=== PATIENT | female | born 1970 | race Caucasian/White ===

== ENCOUNTER 2017-01-02 12:50 | Emergency (ER) | payer MEDICAID ==
[~2017-01-02] VITALS: Ht 160 cm; Wt 77.1 kg
[2017-01-02 13:07] VITALS: BP 144/72
== END 2017-01-02 13:27 | disposition home or self-care (01) ==
LOC: EDUNIT# 12:50 → ER 12:57
DX: S29.012A Strain of muscle and tendon of back wall of thorax, initial encounter (principal); Z88.8 Allergy status to other drugs, medicaments and biological substances; Z88.2 Allergy status to sulfonamides; V49.49XA Driver injured in collision with other motor vehicles in traffic accident, initial encounter; Y93.89 Activity, other specified; Y99.8 Other external cause status; Y92.488 Other paved roadways as the place of occurrence of the external cause

== ENCOUNTER 2019-10-10 14:21 | Emergency (ER) | payer MEDICAID ==
[~2019-10-10] VITALS: Ht 160 cm; Wt 81.6 kg
[2019-10-10 14:56] VITALS: BP 137/73
== END 2019-10-10 15:27 | disposition home or self-care (01) ==
LOC: ER 14:24
DX: G89.29 Other chronic pain (principal); M25.512 Pain in left shoulder; Z76.0 Encounter for issue of repeat prescription; Z88.2 Allergy status to sulfonamides; Z88.8 Allergy status to other drugs, medicaments and biological substances

== ENCOUNTER 2022-06-28 20:49 | Emergency (ER) | payer MEDICAID ==
[~2022-06-28] VITALS: Ht 160 cm; Wt 79.5 kg
[2022-06-28 20:59] VITALS: BP 118/55
[2022-06-28 22:39] LABS: Albumin 3.2 g/dL (3.4-5.0); BUN/Creatinine Ratio 24.5; Basophils # (auto) 0 10 ^3/uL (0-0.2); Basophils % (auto) 0.4 % (0.0-2.0); Calcium 7.8 mg/dL (8.5-10.1); Eosinophils # (auto) 0 10 ^3/uL (0-0.8); Eosinophils % (auto) 0.7 % (0.0-7.0); Hematocrit 31.2 % (36.0-46.0); Hemoglobin 9.5 g/dL (12.2-16.2); Lymphocytes % (auto) 18.6 % (10.0-50.0); Magnesium 2.3 mg/dL (1.6-2.6); Mean Corpuscular Hemoglobin 27.1 pg (28.0-32.0); Mean Corpuscular Hgb Conc. 30.3 g/dL (32.0-36.0); Mean Corpuscular Volume 89.5 fL (80.0-100.0); Monocytes # (auto) 0.3 10 ^3/uL (0-1.3); Monocytes % (auto) 6.2 % (0.0-12.0); Neutrophils # (auto) 3.8 10 ^3/uL (1.6-8.6); Neutrophils % (auto) 74.1 % (37.0-80.0); Nucleated Red Blood Cells % 0.1 %; Potassium 4.1 mmol/L (3.5-5.1); Red Blood Cells 3.49 10^6/uL (4.0-5.20); White Blood Cell 5.1 10^3/uL (4.4-10.8)
[2022-06-28 22:42] LABS: Bilirubin, Total 0.6 mg/dL (0.2-1.0); Phosphorus 3.8 mg/dL (2.5-4.90); Total Protein 6.7 g/dL (6.4-8.2)
== END 2022-06-29 08:22 | disposition left against medical advice (07) ==
LOC: ER 20:49
DX: R07.89 Other chest pain (principal); Z53.29 Procedure and treatment not carried out because of patient's decision for other reasons; Z98.51 Tubal ligation status; Z88.2 Allergy status to sulfonamides
CPT/HCPCS: 36415; 71045; 80053; 83735; 83880; 84100; 84484; 85025; 93005

== ENCOUNTER 2024-04-04 17:58 | Inpatient (IN) | payer MEDICAID ==
[~2024-04-04] VITALS: Ht 160 cm; Wt 75.6 kg
[2024-04-04 19:30] LABS: Basophils # (auto) 0 10 ^3/uL (0-0.2); Eosinophils # (auto) 0 10 ^3/uL (0-0.8); Hemoglobin 9.6 g/dL (12.2-16.2); Lymphocytes # (auto) 0.9 10 ^3/uL (0.4-5.4); Nucleated Red Blood Cells % 0.3 %
[2024-04-04 19:32] LABS: Basophils % (auto) 0.9 % (0.0-2.0); Eosinophils % (auto) 1.1 % (0.0-7.0); Hematocrit 31.5 % (36.0-46.0); Lymphocytes % (auto) 24.1 % (10.0-50.0); Mean Corpuscular Hemoglobin 31.3 pg (28.0-32.0); Mean Corpuscular Hgb Conc. 30.5 g/dL (32.0-36.0); Mean Corpuscular Volume 102.8 fL (80.0-100.0); Monocytes # (auto) 0.3 10 ^3/uL (0-1.3); Monocytes % (auto) 9.4 % (0.0-12.0); Neutrophils # (auto) 2.3 10 ^3/uL (1.6-8.6); Neutrophils % (auto) 64.5 % (37.0-80.0); Red Blood Cells 3.06 10^6/uL (4.0-5.20); Red Cell Distribution Width 15.7 % (11.8-14.3); White Blood Cell 3.6 10^3/uL (4.4-10.8)
[2024-04-04 19:45] LABS: Alanine Aminotransferase 47 U/L (7-40); Albumin 3.4 g/dL (3.2-4.8); Alkaline Phosphatase 236 U/L (46-116); Anion Gap 8 (5-15); Aspartate Aminotransferase 47 U/L (13-40); BUN/Creatinine Ratio 24.5 (10.0-20.0); Bilirubin, Total 0.8 mg/dL (0.2-1.0); Blood Urea Nitrogen 13 mg/dL (9-23); Calcium 7.7 mg/dL (8.7-10.4); Carbon Dioxide 22 mmol/L (20-30); Chloride 109 mmol/L (98-107); Glucose 100 mg/dL (74-106); Magnesium 1.9 mg/dL (1.6-2.6); Phosphorus 5.9 mg/dL (2.4-5.1); Potassium 4.1 mmol/L (3.5-5.1); Sodium 139 mmol/L (136-145); Total Protein 5.9 g/dL (5.7-8.2)
[2024-04-04] MEDS: ONDANSETRON HCL 4 MG/2 ML VIAL IV ONE (20:44)
[2024-04-04] MEDS: PANTOPRAZOLE 40 MG/10 ML VIAL INJ IV ONE (20:44)
[2024-04-04] MEDS: MORPHINE SULFATE 4 MG/ML SYR/VIAL IV ONE (20:47)
[2024-04-04] MEDS: SODIUM CHLORIDE 0.9% 1,000 ML IV ONE (20:47)
[2024-04-04 20:51] LABS: Urine Bacteria FEW /hpf (None Seen); Urine Blood Negative /uL (Negative); Urine Clarity Clear (Clear); Urine Color Yellow (Yellow); Urine Protein, UAD Negative (Negative); Urine Specific Gravity 1.024 (1.001-1.035); Urine Urobilinogen Normal (Negative); Urine WBC <1 /hpf (0 - 5)
[2024-04-04] MEDS ORDERED: LACTULOSE 20Gm/30ML SOLN PO PRN (22:00)
[2024-04-04] MEDS: DOCUSATE SOD 100 MG CAP PO SCH (22:00)
[2024-04-04] MEDS ORDERED: PANTOPRAZOLE 40 MG/10 ML VIAL INJ IV ONE (22:15)
[2024-04-04] MEDS: PIPERACILLIN-TAZO 4.5GM 100 ML IV ONE (22:16)
[2024-04-04] MEDS: LACTULOSE 20Gm/30ML SOLN PO ONE (22:21)
[2024-04-04 23:15] VITALS: PULSE 76; RESP 22; O2SAT 97
[2024-04-04] MEDS: CALCIUM GLUC 1,000mg/50ml-NS 50 ML IV ONE (23:40)
[2024-04-05] MEDS: FUROSEMIDE 20 MG/2 ML VIAL IV ONE (00:05)
[2024-04-05] MEDS: SODIUM CHLORIDE 0.9% 1,000 ML IV SCH (00:05)
[2024-04-05] MEDS: SODIUM CHLORIDE 0.9% 1,000 ML IV ONE (00:38)
[2024-04-05 05:00] VITALS: BP 89/46; PULSE 63; RESP 18; TEMP 97.9; O2SAT 97
[2024-04-05] MEDS: metroNIDAZOLE 500MG/100ML 100 ML IV SCH (06:03)
[2024-04-05 06:30] LABS: Basophils # (auto) 0 10 ^3/uL (0-0.2); Eosinophils # (auto) 0 10 ^3/uL (0-0.8); Lymphocytes # (auto) 0.6 10 ^3/uL (0.4-5.4); Monocytes # (auto) 0.2 10 ^3/uL (0-1.3); Neutrophils # (auto) 1.4 10 ^3/uL (1.6-8.6); White Blood Cell 2.3 10^3/uL (4.4-10.8)
[2024-04-05 06:33] LABS: Basophils % (auto) 0.4 % (0.0-2.0); Eosinophils % (auto) 1.4 % (0.0-7.0); Hematocrit 23.5 % (36.0-46.0); Hemoglobin 7.4 g/dL (12.2-16.2); Lymphocytes % (auto) 27.6 % (10.0-50.0); Mean Corpuscular Hemoglobin 31.5 pg (28.0-32.0); Mean Corpuscular Hgb Conc. 31.6 g/dL (32.0-36.0); Mean Corpuscular Volume 99.5 fL (80.0-100.0); Monocytes % (auto) 9.8 % (0.0-12.0); Neutrophils % (auto) 60.8 % (37.0-80.0); Red Blood Cells 2.36 10^6/uL (4.0-5.20); Red Cell Distribution Width 15.2 % (11.8-14.3)
[2024-04-05 06:38] LABS: Anion Gap 3 (5-15); Carbon Dioxide 27 mmol/L (20-30); Chloride 112 mmol/L (98-107); Potassium 3.5 mmol/L (3.5-5.1); Sodium 142 mmol/L (136-145)
[2024-04-05 06:39] LABS: Calcium 7.4 mg/dL (8.5-10.1)
[2024-04-05 06:44] LABS: BUN/Creatinine Ratio 20.5 (10.0-20.0); Blood Urea Nitrogen 9 mg/dL (9-23); Glucose 91 mg/dL (74-106)
[2024-04-05] MEDS ORDERED: TIZA-142 PO (08:02)
[2024-04-05] MEDS ORDERED: ONDA-180 PO (08:02)
[2024-04-05] MEDS ORDERED: OXYC15TA PO (08:02)
[2024-04-05 08:29] VITALS: BP 100/43; PULSE 71; RESP 18; TEMP 97.8; O2SAT 95
[2024-04-05] MEDS: oxyCODONE ER 20 MG TAB PO SCH (10:57)
[2024-04-05] MEDS: PANTOPRAZOLE 40 MG/10 ML VIAL INJ IV SCH (10:57)
[2024-04-05 13:00] VITALS: BP 122/62; PULSE 82; RESP 18; TEMP 98.6; O2SAT 96
[2024-04-05 14:06] LABS: Basophils # (auto) 0 10 ^3/uL (0-0.2); Basophils % (auto) 0.6 % (0.0-2.0); Eosinophils # (auto) 0 10 ^3/uL (0-0.8); Eosinophils % (auto) 0.7 % (0.0-7.0); Hematocrit 26.8 % (36.0-46.0); Hemoglobin 8.6 g/dL (12.2-16.2); Lymphocytes # (auto) 0.5 10 ^3/uL (0.4-5.4); Lymphocytes % (auto) 21.1 % (10.0-50.0); Mean Corpuscular Hemoglobin 31.7 pg (28.0-32.0); Mean Corpuscular Hgb Conc. 31.9 g/dL (32.0-36.0); Mean Corpuscular Volume 99.2 fL (80.0-100.0); Monocytes # (auto) 0.1 10 ^3/uL (0-1.3); Monocytes % (auto) 5.9 % (0.0-12.0); Neutrophils # (auto) 1.7 10 ^3/uL (1.6-8.6); Neutrophils % (auto) 71.7 % (37.0-80.0); Nucleated Red Blood Cells % 0.1 %; Red Blood Cells 2.71 10^6/uL (4.0-5.20); White Blood Cell 2.4 10^3/uL (4.4-10.8)
[2024-04-05] MEDS: ONDANSETRON HCL 4 MG/2 ML VIAL IV PRN (15:06)
[2024-04-05 17:00] VITALS: BP 89/36; PULSE 69; RESP 18; TEMP 97.6; O2SAT 96
[2024-04-05] MEDS ORDERED: oxyCODONE HCL 5MG TAB PO PRN (18:00)
[2024-04-05] MEDS ORDERED: metroNIDAZOLE 500 MG TAB PO SCH (22:00)
== END 2024-04-05 22:10 | disposition left against medical advice (07) | DRG 247 ==
LOC: ER 17:58 → OVERFLOW 21:54 → WEST WING 04-05 03:25
PROVIDERS: ADMIT Internal Medicine Geriatric Medicine; ATTEND Internal Medicine Geriatric Medicine
DX: K56.41 Fecal impaction (principal); K76.0 Fatty (change of) liver, not elsewhere classified; I50.9 Heart failure, unspecified; D63.8 Anemia in other chronic diseases classified elsewhere; K52.9 Noninfective gastroenteritis and colitis, unspecified; E83.51 Hypocalcemia; Z53.29 Procedure and treatment not carried out because of patient's decision for other reasons; Z88.2 Allergy status to sulfonamides; Z98.84 Bariatric surgery status; Z88.6 Allergy status to analgesic agent; Z90.49 Acquired absence of other specified parts of digestive tract; Z81.8 Family history of other mental and behavioral disorders; Q21.10 Atrial septal defect, unspecified
CPT/HCPCS: 36415; 71045; 74176; 80048; 80053; 81001; 83010; 83605; 83615; 83735; 83880; 84100; 85025; 85045; 87040; 93005; 93306; 96361; 96365; 96367; 96375; C9113; G0378; J2405; J2543; J3490

== ENCOUNTER 2024-07-08 19:22 | Emergency (ER) | payer MEDICAID ==
[~2024-07-08] VITALS: Ht 160 cm; Wt 73.3 kg
[~2024-07-08 19:22] MED LIST: ONDA-180 PO; OXYC15TA PO; TIZA-142 PO
[2024-07-08 19:40] VITALS: BP 135/68; RESP 18; O2SAT 95
[2024-07-08 19:55] VITALS: PULSE 82
[2024-07-08 20:32] LABS: Basophils # (auto) 0 10 ^3/uL (0-0.2); Basophils % (auto) 0.3 % (0.0-2.0); Eosinophils # (auto) 0 10 ^3/uL (0-0.8); Eosinophils % (auto) 0.5 % (0.0-7.0); Hemoglobin 8.8 g/dL (12.2-16.2); Lymphocytes % (auto) 21.6 % (10.0-50.0); Mean Corpuscular Hemoglobin 31.4 pg (28.0-32.0); Mean Corpuscular Hgb Conc. 31.3 g/dL (32.0-36.0); Mean Corpuscular Volume 100.3 fL (80.0-100.0); Monocytes # (auto) 0.4 10 ^3/uL (0-1.3); Monocytes % (auto) 8.3 % (0.0-12.0); Neutrophils # (auto) 3.1 10 ^3/uL (1.6-8.6); Neutrophils % (auto) 69.3 % (37.0-80.0); Nucleated Red Blood Cells % 0.1 %; Platelet Count (auto) 173 10^3/uL (140-450); Red Blood Cells 2.79 10^6/uL (4.0-5.20); Red Cell Distribution Width 14.7 % (11.8-14.3); White Blood Cell 4.4 10^3/uL (4.4-10.8)
[2024-07-08 20:53] LABS: Chloride 108 mmol/L (98-107); Sodium 140 mmol/L (136-145)
[2024-07-08 20:54] LABS: Anion Gap 3 (5-15); Calcium 7.4 mg/dL (8.7-10.4); Carbon Dioxide 29 mmol/L (20-30)
[2024-07-08 20:59] LABS: BUN/Creatinine Ratio 16.7 (10.0-20.0); Blood Urea Nitrogen 10 mg/dL (9-23); Glucose 87 mg/dL (74-106)
[2024-07-09] MEDS ORDERED: CALCIUM GLUC 1,000mg/50ml-NS 50 ML IV ONE (00:15)
[2024-07-09] MEDS ORDERED: ONDANSETRON HCL 4 MG/2 ML VIAL IV PRN (00:15)
== END 2024-07-09 00:06 | disposition left against medical advice (07) ==
LOC: ER 19:22 → OVERFLOW 07-09 00:06 → UNDOADMIN 07-09 00:06 → UNDODISIN 07-09 00:59
DX: E87.6 Hypokalemia (principal); D64.9 Anemia, unspecified; R53.83 Other fatigue; Z98.51 Tubal ligation status; Z88.2 Allergy status to sulfonamides
CPT/HCPCS: 36415; 80048; 82962; 85025; 93005; G0378

== ENCOUNTER 2024-10-21 22:56 | Inpatient (IN) | payer MEDICAID ==
[~2024-10-21] VITALS: Ht 160 cm; Wt 75.8 kg
--- NOTE | 2024-10-21 23:51 | ED.PDOC ---
SOB-HPI HPI Comments HPI: Poor Historian. 54-year-old female presents to the ED for evaluation of suspected pneumonia. Patient states that on night she may have blacked out while she was sitting on the couch and when she came to, she felt drowning with saliva in her throat which she suspects may have caused her to aspirate. Patient has no history of seizures. Patient is here only to rule out pneumonia. Patient says she has multiple specialist that she follows up with at [facility]. Past Medcial History: Bowel obstruction, hemolysis, multiple blood transfusions, anemia, atrial septal defect, history of multiple blackouts Past Surgical History: Tubal ligation, neck mass removal, hernia repair, toe surgery. Appendectomy REVIEW OF SYSTEMS: CONSTITUTIONAL: Denies acute: fever, diaphoresis, chills, HEAD: Denies acute: headache, photophobia Eyes: Denies acute: Double vision, vision loss, eye pain, eye discharge. EARS: Denies acute: tinnitus, hearing loss, ear discharge, ear pain, THROAT: Denies acute: sore throat, swelling, difficulty swallowing , pain with swallowing, change in voice. NECK: Denies acute: neck pain, neck swelling, stiff neck. HEART: Denies acute : chest pain, palpitations, LUNGS: Denies acute: wheezing, cough, hemoptysis ABDOMEN: Denies acute: abdominal pain, Nausea, Vomiting, diarrhea, melena , hematemesis, hematochezia SKIN: Denies acute: rash, redness, lesions, itchiness. EXTREMITIES: Denies acute: calf pain, numbness, tingling, weakness, denies pain in extremity. Denies acute: Low back pain. Neuro: Denies acute: focal neurological deficit, motor or sensory focal neurological deficit, tremors, seizure like activity, confusion, dizziness, change in mental status, loss of bowel or bladder function, cauda equina like symptoms. : Denies acute: dysuria, hematuria, flank pain, increase in urinary frequency. PSYCH: Denies acute: hallucination, suicidal ideation, homicidal ideation. FEMALE: Denies acute: abnormal vaginal bleeding, foul odor, unusual discharge. PHYSICAL EXAM: General: no acute distress, awake and alert. Head: normocephalic, atraumatic. Neck: supple, trachea is midline, no swelling. Throat: Normal phonation. Eyes:, no erythema, no purulent discharge, no proptosis, no icterus. Heart: regular rate, regular rhythm, no significant murmur appreciated. Lungs: no apparent respiratory distress, Able to speak in full sentences. No wheezing, no rhonchi, no crackles. No stridors Clear to auscultation bilaterally. Abdomen: non tender to palpation, non distended, soft, no guarding, no rebound, + bowel sounds. Neuro: Awake, Alert, oriented to name, self, situation, follows commands GCS=15. Speech is normal. Skin: no petechia, no purpura, no cyanosis, slightly-pale, not jaundice. Lower extremities: --no - Pitting edema no deformity, no focal swelling, no calf TTP. Makes eye contact. moves all four extremities. Face: no apparent facial droop. Ambulating in the ED independently. Time Seen by MD: 23:06 Primary Care Provider: Chitra/ Virgil Reviewed notes: Nurses Notes, Medications, Allergies Information Source: Patient Past Medical History Surgical History: Appendectomy, BTL CLERICAL PROOFREADER History: No Pertinent CLERICAL PROOFREADER History Family History Family History: Reviewed,noncontributory to illness Social History Smoker: Non-Smoker Alcohol: Denies ETOH Use Drugs: Denies Drug Use Lives In: Home Was a procedure done? Was a procedure done?: No Differential Dx Differential Diagnosis: Other (DDx include ACS, unstable angina, anxiety, PE, pneumothroax, neoplasm, cardiac ischemia, COPD, asthma, CHF, pleural effusion, tobacco abuse, pneumonia, hypoxia, hypercapnia, anemia., infection/sepsis., pulmonary edema. Asthma, Cardiac tamponade, infection.) X-Ray, Labs, Meds, VS Vital Signs Date Time Temp Pulse Resp B/P (MAP) Pulse Ox O2 Delivery O2 Flow Rate FiO2 10/22/24 00:00 89 10/21/24 23:45 98.6 94 19 134/64 (87) 93 Lab Test 10/22/24 00:31 10/21/24 23:48 Range/Units Troponin I High Sensitivity 4 3 L </=34 ng/L White Blood Count 5.1 4.4-10.8 10^3/uL Red Blood Count 3.20 L 4.0-5.20 10^6/uL Hemoglobin 9.1 L 12.2-16.2 g/dL Hematocrit 29.2 L 36.0-46.0 % Mean Corpuscular Volume 91.3 80.0-100.0 fL Mean Corpuscular Hemoglobin 28.4 28.0-32.0 pg Mean Corpuscular Hemoglobin Concent 31.1 L 32.0-36.0 g/dL Red Cell Distribution Width 17.8 H 11.8-14.3 % Platelet Count 199 140-450 10^3/uL Mean Platelet Volume 9.5 6.9-10.8 fL Neutrophils (%) (Auto) 75.7 37.0-80.0 % Lymphocytes (%) (Auto) 13.2 10.0-50.0 % Monocytes (%) (Auto) 9.1 0.0-12.0 % Eosinophils (%) (Auto) 1.7 0.0-7.0 % Basophils (%) (Auto) 0.3 0.0-2.0 % Neutrophils # (Auto) 3.8 1.6-8.6 10 ^3/uL Lymphocytes # (Auto) 0.7 0.4-5.4 10 ^3/uL Monocytes # (Auto) 0.5 0-1.3 10 ^3/uL Eosinophils # (Auto) 0.1 0-0.8 10 ^3/uL Basophils # (Auto) 0 0-0.2 10 ^3/uL Nucleated Red Blood Cells 0.0 % Sodium Level 141 136-145 mmol/L Potassium Level 2.8 L 3.5-5.1 mmol/L Chloride Level 104 98-107 mmol/L Carbon Dioxide Level 28 20-31 mmol/L Anion Gap 9 5-15 Blood Urea Nitrogen 9 9-23 mg/dL Creatinine 0.52 L 0.550-1.02 mg/dL Glomerular Filtration Rate Calc 109 >90 mL/min BUN/Creatinine Ratio 17.3 10.0-20.0 Serum Glucose 107 H 74-106 mg/dL Lactic Acid Level 1.7 0.4-2.0 mmol/L Calcium Level 7.7 L 8.7-10.4 mg/dL Magnesium Level 1.9 1.6-2.6 mg/dL Total Bilirubin 0.6 0.2-1.0 mg/dL Aspartate Amino Transferase (AST) 41 H 13-40 U/L Alanine Aminotransferase (ALT) 45 H 7-40 U/L Alkaline Phosphatase 182 H 46-116 U/L B-Type Natriuretic Peptide 111.23 0-100 pg/mL Total Protein 6.0 5.7-8.2 g/dL Albumin 3.5 3.2-4.8 g/dL Time of 1ST Reevaluation: 02:57 Reevaluation 1ST: Unchanged Patient Education/Counseling: Diagnosis, Treatment Family Education/Counseling: No Family Present Departure 1 Departure Time of Disposition: 01:44 Impression: Primary Impression: Hypokalemia Additional Impressions: Abnormal chest xray Anemia Hypocalcemia Disposition: 09 ADMITTED INPATIENT Admit to: Tele Condition: Guarded Discharged With: Self ELMA WERNER DO Oct 21, 2024 23:51
[2024-10-21 23:56] LABS: Basophils # (auto) 0 10 ^3/uL (0-0.2); Basophils % (auto) 0.3 % (0.0-2.0); Eosinophils # (auto) 0.1 10 ^3/uL (0-0.8); Eosinophils % (auto) 1.7 % (0.0-7.0); Hematocrit 29.2 % (36.0-46.0); Hemoglobin 9.1 g/dL (12.2-16.2); Lymphocytes # (auto) 0.7 10 ^3/uL (0.4-5.4); Lymphocytes % (auto) 13.2 % (10.0-50.0); Mean Corpuscular Hemoglobin 28.4 pg (28.0-32.0); Mean Corpuscular Hgb Conc. 31.1 g/dL (32.0-36.0); Mean Corpuscular Volume 91.3 fL (80.0-100.0); Monocytes # (auto) 0.5 10 ^3/uL (0-1.3); Monocytes % (auto) 9.1 % (0.0-12.0); Neutrophils # (auto) 3.8 10 ^3/uL (1.6-8.6); Neutrophils % (auto) 75.7 % (37.0-80.0); Platelet Count (auto) 199 10^3/uL (140-450); Red Cell Distribution Width 17.8 % (11.8-14.3); White Blood Cell 5.1 10^3/uL (4.4-10.8)
[2024-10-22 00:14] LABS: Alanine Aminotransferase 45 U/L (7-40); Alkaline Phosphatase 182 U/L (46-116); Anion Gap 9 (5-15); Aspartate Aminotransferase 41 U/L (13-40); BUN/Creatinine Ratio 17.3 (10.0-20.0); Blood Urea Nitrogen 9 mg/dL (9-23); Calcium 7.7 mg/dL (8.7-10.4); Carbon Dioxide 28 mmol/L (20-31); Chloride 104 mmol/L (98-107); Glucose 107 mg/dL (74-106); Magnesium 1.9 mg/dL (1.6-2.6); Potassium 2.8 mmol/L (3.5-5.1); Sodium 141 mmol/L (136-145)
[2024-10-22 00:15] LABS: Albumin 3.5 g/dL (3.2-4.8); Bilirubin, Total 0.6 mg/dL (0.2-1.0)
--- NOTE | 2024-10-22 01:34 | DVH ---
EXAM: XY CHEST PORTABLE CLINICAL HISTORY: Patient is concerned for pneumonia TECHNIQUE: Single AP view of the chest WID: COMPARISON: XY CHEST PORTABLE on DOS: 04/04/24 FINDINGS: Lines and tubes: None Chest: The heart size and pulmonary vasculature is within normal limits. No pleural effusion, pneumothorax, or consolidation. Nodular opacity projects over the left lung base . The osseous structures are grossly intact. IMPRESSION: Nodular opacity projects over the left lung base. Consider characterization with nonemergent/outpatie nt CT chest if clinically indicated.
[2024-10-22] MEDS: POTASSIUM CHL 20 Meq TABLET PO ONE (03:30)
--- NOTE | 2024-10-22 06:18 | DVHHP2 ---
History of Present Illness Reason for Visit: Shortness of breath History of Present Illness Katja Cortez is a 54-year-old female with past medical history of appendectomy, bowel obstruction, hemolysis, multiple blood transfusions, anemia, atrial septal defect, multiple blackouts, BTL, neck mass removal, hernia repair, and toe surgery who presents to the ED for shortness of breath. Patient states that she uses O2 at home 2.5LNC. Patient states that on night she aspirated on her own saliva. Patient reports she thinks it is pneumonia. She also reports that she has specialists and follows up at [facility]. Pulmonary: Other (02 dependent) Past Medical History bowel obstruction, hemolysis, multiple blood transfusions, anemia, atrial septal defect, multiple blackouts, neck mass removal, and toe surgery Past Surgical History: Appendectomy, Hernia Repair, Tubal Ligation Smoke: No ALCOHOL: none Drugs: None Lives: with Family Domestic Violence: Neg Review of Systems Constitutional: No: Fever, Chills, Sweats, Weakness, Malaise, Other Eyes: No: Pain, Vision change, Conjunctivae inflammation, Eyelid inflammation, Other, Redness ENT: No: Ear pain, Ear discharge, Nose pain, Nose discharge, Nose congestion, Mouth pain, Mouth swelling, Throat pain, Throat swelling, Other Respiratory: Cough Cardiovascular: No: Chest Pain, Palpitations, Orthopnea, Paroxysmal Noc. Dyspnea, Edema, Lt Headedness, Other Gastrointestinal: No: Nausea, Vomiting, Abdominal Pain, Diarrhea, Constipation, Melena, Hematochezia, Other Genitourinary: No Dysuria, No Frequency, No Incontinence, No Hematuria, No Retention, No Other Musculoskeletal: No: other, neck pain, shoulder pain, arm pain, back pain, hand pain, leg pain, foot pain Skin: No: Rash, Lesions, Jaundice, Bruising, Other Neurological: No: Weakness, Numbness, Incoordination, Change in speech, Confusion, Seizures, Other Allergies: Coded Allergies: Acetaminophen (Verified Allergy, Unknown, 10/24/15) Sulfa Antibiotics (Verified Allergy, Unknown, 10/24/15) Uncoded Allergies: BLOOD THINNERS (Allergy, Unknown, 04/04/24) Exam Vital Signs Vital Signs Date Time Temp Pulse Resp B/P (MAP) Pulse Ox O2 Delivery O2 Flow Rate FiO2 10/22/24 03:59 95 Nasal Cannula 2.0 10/22/24 03:54 98.6 82 16 117/62 (80) 98.6 10/22/24 03:37 28 General Appearance: Alert, Oriented X3, Cooperative, No acute distress HEENT: Atraumatic, PERRLA, EOMI, Mucous membr. moist/pink Respiratory: Normal air movement Cardiovascular: Regular rate, Normal S1, Normal S2, No murmurs Abdominal: Normal bowel sounds, Soft, No tenderness, No hepatospenomegaly, No masses Extremities: No clubbing, No cyanosis, No edema, Normal pulses, No tenderness/swelling Skin: No rashes, No breakdown, No significant lesion Neuro: Normal gait, Normal speech, Strength at 5/5 X4 ext, Normal tone, Sensation intact Psych/Mental Status: Mental status NL, Mood NL Labs/Xrays Labs Test 10/22/24 00:31 10/21/24 23:48 Range/Units Troponin I High Sensitivity 4 </=34 ng/L White Blood Count 5.1 4.4-10.8 10^3/uL Red Blood Count 3.20 L 4.0-5.20 10^6/uL Hemoglobin 9.1 L 12.2-16.2 g/dL Hematocrit 29.2 L 36.0-46.0 % Mean Corpuscular Volume 91.3 80.0-100.0 fL Mean Corpuscular Hemoglobin 28.4 28.0-32.0 pg Mean Corpuscular Hemoglobin Concent 31.1 L 32.0-36.0 g/dL Red Cell Distribution Width 17.8 H 11.8-14.3 % Platelet Count 199 140-450 10^3/uL Mean Platelet Volume 9.5 6.9-10.8 fL Neutrophils (%) (Auto) 75.7 37.0-80.0 % Lymphocytes (%) (Auto) 13.2 10.0-50.0 % Monocytes (%) (Auto) 9.1 0.0-12.0 % Eosinophils (%) (Auto) 1.7 0.0-7.0 % Basophils (%) (Auto) 0.3 0.0-2.0 % Neutrophils # (Auto) 3.8 1.6-8.6 10 ^3/uL Lymphocytes # (Auto) 0.7 0.4-5.4 10 ^3/uL Monocytes # (Auto) 0.5 0-1.3 10 ^3/uL Eosinophils # (Auto) 0.1 0-0.8 10 ^3/uL Basophils # (Auto) 0 0-0.2 10 ^3/uL Nucleated Red Blood Cells 0.0 % Sodium Level 141 136-145 mmol/L Potassium Level 2.8 L 3.5-5.1 mmol/L Chloride Level 104 98-107 mmol/L Carbon Dioxide Level 28 20-31 mmol/L Anion Gap 9 5-15 Blood Urea Nitrogen 9 9-23 mg/dL Creatinine 0.52 L 0.550-1.02 mg/dL Glomerular Filtration Rate Calc 109 >90 mL/min BUN/Creatinine Ratio 17.3 10.0-20.0 Serum Glucose 107 H 74-106 mg/dL Lactic Acid Level 1.7 0.4-2.0 mmol/L Calcium Level 7.7 L 8.7-10.4 mg/dL Magnesium Level 1.9 1.6-2.6 mg/dL Total Bilirubin 0.6 0.2-1.0 mg/dL Aspartate Amino Transferase (AST) 41 H 13-40 U/L Alanine Aminotransferase (ALT) 45 H 7-40 U/L Alkaline Phosphatase 182 H 46-116 U/L B-Type Natriuretic Peptide 111.23 0-100 pg/mL Total Protein 6.0 5.7-8.2 g/dL Albumin 3.5 3.2-4.8 g/dL EXAM: XY CHEST PORTABLE CLINICAL HISTORY: Patient is concerned for pneumonia WID: COMPARISON: XY CHEST PORTABLE on DOS: 04/04/24 FINDINGS: Lines and tubes: None Chest: The heart size and pulmonary vasculature is within normal limits. No pleural effusion, pneumothorax, or consolidation. Nodular opacity projects over the left lung base. The osseous structures are grossly intact. IMPRESSION: Nodular opacity projects over the left lung base. Consider characterization with nonemergent/outpatient CT chest if clinically indicated. Assessment/Plan Assessment/Plan Assessment: Acute on chronic respiratory failure secondary to suspected pneumonia Hypocalcemia Anemia Hypokalemia History of appendectomy Tubal ligation Neck mass removal Hernia repair Toe surgery Bowel obstruction Multiple blood transfusions Atrial septal defect multiple blackouts Blood transfusions Plan: Admit to med surg IV fluids Replete lytes Pain management IV antibiotics Antiemetics Chest x-ray noted Diet as tolerated Monitor labs Trend troponin Urine drug screen Home medications reconciled Plan discussed with: Patient Date of Service: Oct 22, 2024 Billing Provider: ANNA JONES Common Visit Codes: [id number] INP/OBS CARE (MOD) ANNA JONES Oct 22, 2024 06:18
[2024-10-22] MEDS: SOD CHL 0.9%/ KCL 40MEQ 1,000 ML IV ONE (07:15)
[2024-10-22 07:34] VITALS: PULSE 79; RESP 18; O2SAT 95
[2024-10-22] MEDS ORDERED: ONDANSETRON HCL 4 MG/2 ML VIAL IV PRN (07:45)
[2024-10-22] MEDS ORDERED: DOCUSATE SOD 100 MG CAP PO PRN (07:45)
[2024-10-22] MEDS ORDERED: MORPHINE SULFATE INJ 2 MG/ml SYRG IV PRN (07:45)
[2024-10-22] MEDS: cefTRIAXone 1GM/50ML D5W 50 ML IV ONE (08:06)
[2024-10-22] MEDS: SODIUM CHLORIDE 0.9% 1,000 ML IV SCH (08:50)
[2024-10-22] MEDS: cefTRIAXone 1GM/50ML D5W 50 ML IV SCH (09:00)
--- NOTE | 2024-10-22 11:02 | ECG ---
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
[2024-10-22 17:00] VITALS: PULSE 73; RESP 16; O2SAT 96
[2024-10-22 19:50] VITALS: BP 107/54; PULSE 82; RESP 20; TEMP 98; O2SAT 95
== END 2024-10-22 20:09 | disposition left against medical advice (07) | DRG 133 ==
LOC: ER 22:56 → OVERFLOW 10-22 07:42
DX: J96.20 Acute and chronic respiratory failure, unspecified whether with hypoxia or hypercapnia (principal); K56.609 Unspecified intestinal obstruction, unspecified as to partial versus complete obstruction; J15.69 Pneumonia due to other Gram-negative bacteria; J15.9 Unspecified bacterial pneumonia; E83.51 Hypocalcemia; Q21.10 Atrial septal defect, unspecified; Z53.29 Procedure and treatment not carried out because of patient's decision for other reasons; D64.9 Anemia, unspecified; E87.6 Hypokalemia; Z90.49 Acquired absence of other specified parts of digestive tract; Z88.6 Allergy status to analgesic agent; Z79.899 Other long term (current) drug therapy
CPT/HCPCS: 36415; 80053; 83605; 83735; 83880; 84484; 85025; 86850; 86900; 86901; 93005; G0378

== ENCOUNTER 2025-04-07 17:06 | Emergency (ER) | payer MEDICAID ==
[~2025-04-07] VITALS: Ht 160 cm; Wt 73.5 kg
[2025-04-07 18:23] LABS: Basophils # (auto) 0 10 ^3/uL (0-0.2); Basophils % (auto) 0.2 % (0.0-2.0); Eosinophils # (auto) 0.1 10 ^3/uL (0-0.8); Eosinophils % (auto) 0.9 % (0.0-7.0); Hematocrit 28.6 % (36.0-46.0); Hemoglobin 9.1 g/dL (12.2-16.2); Lymphocytes # (auto) 0.7 10 ^3/uL (0.4-5.4); Lymphocytes % (auto) 11.4 % (10.0-50.0); Mean Corpuscular Hemoglobin 31.8 pg (28.0-32.0); Mean Corpuscular Hgb Conc. 31.8 g/dL (32.0-36.0); Mean Corpuscular Volume 99.9 fL (80.0-100.0); Monocytes # (auto) 0.5 10 ^3/uL (0-1.3); Monocytes % (auto) 7.6 % (0.0-12.0); Neutrophils # (auto) 5.1 10 ^3/uL (1.6-8.6); Neutrophils % (auto) 79.9 % (37.0-80.0); Platelet Count (auto) 169 10^3/uL (140-450); Red Blood Cells 2.86 10^6/uL (4.0-5.20); Red Cell Distribution Width 15.5 % (11.8-14.3); White Blood Cell 6.4 10^3/uL (4.4-10.8)
--- NOTE | 2025-04-07 18:28 | ED.PDOC ---
SOB-HPI HPI Comments 54 y/o F, with PMHx of hypoglycemia and anemia presents to the ED for CC of weakness. Patient states, she has been experiencing weakness x1 yr. Patient relays, that she has felt unwell for over a year and symptoms are always d/t abnormal labs; states "either my hemoglobin is too low or too high". 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 Patient uses at home oxygen at 21pm via NC. Patient denies fever, chills, cough, or nasal congestion. No other symptoms or modifying factors present at this time. nothing has changed in the past year, but she was finally able to make arrangements for her children to be cared for today Chief Complaint: Shortness of Breath Time Seen by MD: 18:00 Primary Care Provider: brittany Sandoval notes: Nurses Notes, Medications, Allergies Information Source: Patient Mode of Arrival: Ambulatory Severity: Moderate Timing: Weeks Duration: Since onset Context: With Light Exertion PE Risk Factors: None History of: None Prehospital treatment: None Modifying Factors: Nothing Associated Signs and Symptoms: None Past Medical History PAST MEDICAL HISTORY: Anemia Past Medical History (Other): hypoglycemia Surgical History: Appendectomy, BTL Surgical History (Other): gastric bypass 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 [employer] History: No Pertinent 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 [employer] History Family History Family History: Reviewed,noncontributory to illness Social History Smoker: Non-Smoker Alcohol: Denies ETOH Use Drugs: Denies Drug Use Lives In: Home Constitutional: denies: chills, diaphoresis, fatigue, fever, malaise, sweats, weakness, others EENTM: denies: blurred vision, double vision, ear bleeding, ear discharge, ear drainage, ear pain, ear ringing, eye pain, eye redness, hearing loss, mouth pain, mouth swelling, nasal discharge, nose bleeding, nose congestion, nose pain, photophobia, tearing, throat pain, throat swelling, voice changes, others Respiratory: reports: shortness of breath; denies: cough, hemoptysis, orthopnea, SOB at rest, SOB with excertion, stridor, wheezing, others Cardiovascular: denies: chest pain, dizzy spells, diaphoresis, Dyspnea on exertion, edema, irregular heart beat, left arm pain, lightheadedness, palpitations, PND, syncope, others Gastrointestinal: denies: abdomen distended, abdominal pain, blood streaked bowels, constipated, diarrhea, dysphagia, difficulty swallowing, hematemesis, melena, nausea, poor appetite, poor fluid intake, rectal bleeding, rectal pain, vomiting, others Genitourinary: denies: abnormal vagina bleeding, burning, dyspareunia, dysuria, flank pain, frequency, hematuria, incontinence, pain, , vagina discharge, urgency, others Neurological: denies: dizziness, fainting, headache, left sided numbness, left sided weakness, numbness, paresthesia, pre-existing deficit, right sided numbness, right sided weakness, seizure, speech problems, tingling, tremors, weakness, others Musculoskeletal: denies: back pain, gout, joint pain, joint swelling, muscle pain, muscle stiffness, neck pain, others Integumetry: denies: bruises, change in color, change in hair/nails, dryness, laceration, lesions, lumps, rash, wounds, others Allergic/Immunocompromised: denies: Difficulty Healing, Frequent Infections, Hives, Itching, others Hematologic/Lymphatic: denies: anemia, blood clots, easy bleeding, easy bruising, swollen glands, others Endocrine: denies: excessive hunger, excessive sweating, excessive thirst, excessive urination, flushing, intolerance to cold, intolerance to heat, unexplained weight gain, unexplained weight loss, others Psychiatric: denies: anxiety, bipolar disorder, depression, hopeless, panic disorder, schizophrenia, sleepless, suicidal, others All Other Systems: Reviewed and Negative Physical Exam General Appearance: No Apparent Distress, Normal HEENT: Normal ENT Inspection, Pharynx Normal, TMs Normal Neck: Full Range of Motion, Non-Tender, Normal, Normal Inspection Respiratory: Chest Non-Tender, Lungs Clear, No Accessory Muscle Use, No Respiratory Distress, Normal Breath Sounds Cardiovascular: No Edema, No Murmur, No Gallop, Normal Peripheral Pulses, Regular Rate/Rhythm Breast Exam: Deferred Gastrointestinal: No Organomegaly, Non Tender, No Pulsatile Mass, Normal Bowel Sounds, Soft Genitalia: Deferred Pelvic: Deferred Rectal: Deferred Extremities: No calf tenderness, Normal capillary refill, Normal inspection, Normal range of motion, Non-tender, No pedal edema Musculoskeletal : Apperance: Normal Neurologic: Alert, 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 Was a procedure done?: No Differential Dx Differential Diagnosis: Anxiety, Bronchitis, Hyponatremia, Pneumonia, Sinu sitis, Pharyngitis, URI, Other (anemia, dehydration, failure to thrive, electrolyte disorders, malnutrition) X-Ray, Labs, Meds, VS Vital Signs Date Time Temp Pulse Resp B/P (MAP) Pulse Ox O2 Delivery O2 Flow Rate FiO2 04/07/25 17:36 98.5 91 20 120/71 (87) 94 98.5 04/07/25 17:35 20 94 Nasal Cannula* 2 28 Lab Test 04/07/25 18:07 Range/Units White Blood Count 6.4 4.4-10.8 10^3/uL Red Blood Count 2.86 L 4.0-5.20 10^6/uL Hemoglobin 9.1 L 12.2-16.2 g/dL Hematocrit 28.6 L 36.0-46.0 % Mean Corpuscular Volume 99.9 80.0-100.0 fL Mean Corpuscular Hemoglobin 31.8 28.0-32.0 pg Mean Corpuscular Hemoglobin Concent 31.8 L 32.0-36.0 g/dL Red Cell Distribution Width 15.5 H 11.8-14.3 % Platelet Count 169 140-450 10^3/uL Mean Platelet Volume 9.1 6.9-10.8 fL Neutrophils (%) (Auto) 79.9 37.0-80.0 % Lymphocytes (%) (Auto) 11.4 10.0-50.0 % Monocytes (%) (Auto) 7.6 0.0-12.0 % Eosinophils (%) (Auto) 0.9 0.0-7.0 % Basophils (%) (Auto) 0.2 0.0-2.0 % Neutrophils # (Auto) 5.1 1.6-8.6 10 ^3/uL Lymphocytes # (Auto) 0.7 0.4-5.4 10 ^3/uL Monocytes # (Auto) 0.5 0-1.3 10 ^3/uL Eosinophils # (Auto) 0.1 0-0.8 10 ^3/uL Basophils # (Auto) 0 0-0.2 10 ^3/uL Nucleated Red Blood Cells 0.0 % Sodium Level 140 136-145 mmol/L Potassium Level 4.3 3.5-5.1 mmol/L Chloride Level 106 98-107 mmol/L Carbon Dioxide Level 26 20-31 mmol/L Anion Gap 8 5-15 Blood Urea Nitrogen 17 9-23 mg/dL Creatinine 0.48 L 0.550-1.02 mg/dL Glomerular Filtration Rate Calc 111 >90 mL/min BUN/Creatinine Ratio 35.4 H 10.0-20.0 Serum Glucose 87 74-106 mg/dL Calcium Level 8.4 L 8.7-10.4 mg/dL Total Bilirubin 0.7 0.2-1.0 mg/dL Aspartate Amino Transferase (AST) 32 13-40 U/L Alanine Aminotransferase (ALT) 41 H 7-40 U/L Alkaline Phosphatase 202 H 46-116 U/L Total Protein 5.4 L 5.7-8.2 g/dL Albumin 3.0 L 3.2-4.8 g/dL Time of 1ST Reevaluation: 18:30 Reevaluation 1ST: Unchanged Patient Education/Counseling: Diagnosis, Treatment, Prognosis, Need For Follow Up Family Education/Counseling: No Family Present Additional Information The following tests were ordered, and results were reviewed by me: CBC, CMP I discussed treatment and results with medical personnel and: patient Comprehensive systems review obtained and negative except for what is stated in the HPI. pt appears alert, oriented. without overt signs of weakness. she has chronic anemia and chronic malabsorption, with her ca improved from previous Departure 1 Departure Time of Disposition: 19:30 Impression: Primary Impression: Weakness Additional Impressions: Hypoalbuminemia Chronic anemia Disposition: HOME / SELF CARE / HOMELESS Condition: Stable Discharged With: Self Critical Care Note Critical Care Time?: No Stability Stability form required: No Heart Score Heart Score: Heart Score Response (Comments) Value History N/A 0 EKG N/A 0 Age N/A 0 Risk Factors N/A 0 Troponin N/A 0 Total 0 I personally scribed for LIAT PINTO MD ([email or web address]) on 04/07/25 at 18:28. Electronically submitted by Génesis Resendez ([email or web address]). I personally scribed for LIAT PINTO MD ([email or web address]) on 04/07/25 at 19:10. Electronically submitted by Génesis Resendez ([email or web address]). LIAT PINTO MD April 07, 2025 18:28
[2025-04-07 18:39] LABS: Anion Gap 8 (5-15); Aspartate Aminotransferase 32 U/L (13-40); BUN/Creatinine Ratio 35.4 (10.0-20.0); Bilirubin, Total 0.7 mg/dL (0.2-1.0); Blood Urea Nitrogen 17 mg/dL (9-23); Carbon Dioxide 26 mmol/L (20-31); Chloride 106 mmol/L (98-107); Glucose 87 mg/dL (74-106); Potassium 4.3 mmol/L (3.5-5.1); Sodium 140 mmol/L (136-145)
[2025-04-07 18:42] LABS: Alanine Aminotransferase 41 U/L (7-40); Alkaline Phosphatase 202 U/L (46-116); Calcium 8.4 mg/dL (8.7-10.4); Total Protein 5.4 g/dL (5.7-8.2)
[2025-04-07 20:10] VITALS: BP 105/52; PULSE 85; RESP 20; TEMP 98.7
[2025-04-07 20:15] VITALS: O2SAT 97
== END 2025-04-07 20:25 | disposition home or self-care (01) ==
LOC: ER 17:06
DX: E88.09 Other disorders of plasma-protein metabolism, not elsewhere classified (principal); D53.9 Nutritional anemia, unspecified; Z90.49 Acquired absence of other specified parts of digestive tract; Z98.51 Tubal ligation status; Z98.84 Bariatric surgery status
CPT/HCPCS: 36415; 80053; 85025

== ENCOUNTER 2025-05-09 13:46 | Inpatient (IN) | payer MEDICAID ==
[~2025-05-09] VITALS: Ht 157.5 cm; Wt 79.2 kg
--- NOTE | 2025-05-09 14:35 | DVH ---
CHEST RADIOGRAPH Indication: shortness of breath Technique: Single frontal view of the chest was obtained Comparison: XY CHEST PORTABLE on DOS: 10/22/24, XY CHEST PORTABLE on DOS: 04/04/24, CXRP on DOS: 2 FINDINGS: Lines and Tubes: None Lungs: Bibasilar areas of. Probable gas below the diaphragm pneumoperitoneum is of clinical concern r ecommend CT abdomen and pelvis. Pleura: No effusion. No pneumothorax. Cardiomediastinal contours: Unremarkable Bones: No acute osseous abnormality. IMPRESSION: 1. Bibasilar areas of atelectasis. 2. If pneumoperitoneum is of clinical concern recommend CT abdomen and pelvis. HS:Y
--- NOTE | 2025-05-09 14:43 | ED.PDOC ---
SOB-HPI HPI Comments This is a 54 year old female presenting to the ED with chief complaint of SOB. Patient reports that she has been experiencing worsening SOB over the past 2 weeks with associated nausea and vomiting. Patient relays that she has an unknown blood disorder that she is still being worked up for and is unsure what it may be. Patient states she is supposedly going to be receiving care from [facility] some time in the future. Patient notes she followed up with PCP today, however, due to her worsening SOB, they advised that she come to the ED for further evaluation. Patient denies any chest pain, dizziness, diarrhea, abdominal pain, fever, or chills. Chief Complaint: Shortness of Breath Time Seen by MD: 14:38 Primary Care Provider: brittany Reviewed notes: Nurses Notes, Medications, Allergies Information Source: Patient Mode of Arrival: Ambulatory Severity: Moderate Timing: Hours Duration: Since onset Context: At Rest PE Risk Factors: None Prehospital treatment: None Modifying Factors: Nothing Past Medical History PAST MEDICAL HISTORY: Anemia, Depression Past Medical History (Other): Atrial septal defect, Ileus, unknown blood disorder Surgical History: Appendectomy, BTL Surgical History (Other): Gastric Bypass COAL DELIVERER History: No Pertinent COAL DELIVERER History Family History Family History: Reviewed,noncontributory to illness Social History Smoker: Non-Smoker Alcohol: Denies ETOH Use Drugs: Denies Drug Use Lives In: Home Constitutional: denies: chills, diaphoresis, fatigue, fever, malaise, sweats, weakness, others EENTM: denies: blurred vision, double vision, ear bleeding, ear discharge, ear drainage, ear pain, ear ringing, eye pain, eye redness, hearing loss, mouth pain, mouth swelling, nasal discharge, nose bleeding, nose congestion, nose pain, photophobia, tearing, throat pain, throat swelling, voice changes, others Respiratory: reports: shortness of breath; denies: cough, hemoptysis, orthopnea, SOB at rest, SOB with excertion, stridor, wheezing, others Cardiovascular: denies: chest pain, dizzy spells, diaphoresis, Dyspnea on exertion, edema, irregular heart beat, left arm pain, lightheadedness, pa lpitations, PND, syncope, others Gastrointestinal: reports: nausea, vomiting; denies: abdomen distended, abdominal pain, blood streaked bowels, constipated, diarrhea, dysphagia, difficulty swallowing, hematemesis, melena, poor appetite, poor fluid intake, rectal bleeding, rectal pain, others Genitourinary: denies: abnormal vagina bleeding, burning, dyspareunia, dysuria, flank pain, frequency, hematuria, incontinence, pain, , vagina discharge, urgency, others Neurological: denies: dizziness, fainting, headache, left sided numbness, left sided weakness, numbness, paresthesia, pre-existing deficit, right sided numbness, right sided weakness, seizure, speech problems, tingling, tremors, weakness, others Musculoskeletal: denies: back pain, gout, joint pain, joint swelling, muscle pain, muscle stiffness, neck pain, others Integumetry: denies: bruises, change in color, change in hair/nails, dryness, laceration, lesions, lumps, rash, wounds, others Allergic/Immunocompromised: denies: Difficulty Healing, Frequent Infections, Hives, Itching, others Hematologic/Lymphatic: denies: anemia, blood clots, easy bleeding, easy bruising, swollen glands, others Endocrine: denies: excessive hunger, excessive sweating, excessive thirst, excessive urination, flushing, intolerance to cold, intolerance to heat, un explained weight gain, unexplained weight loss, others Psychiatric: denies: anxiety, bipolar disorder, depression, hopeless, panic disorder, schizophrenia, sleepless, suicidal, others All Other Systems: Reviewed and Negative Physical Exam General Appearance: No Apparent Distress, Normal HEENT: Normal ENT Inspection, Pharynx Normal, TMs Normal Neck: Full Range of Motion, Non-Tender, Normal, Normal Inspection Respiratory: Chest Non-Tender, Lungs Clear, No Accessory Muscle Use, No Respiratory Distress, Normal Breath Sounds Cardiovascular: No Edema, No JVD, No Murmur, No Gallop, Normal Peripheral Pu lses, Regular Rate/Rhythm Breast Exam: Deferred Gastrointestinal: No Organomegaly, Non Tender, No Pulsatile Mass, Normal Bowel Sounds, Soft Genitalia: Deferred Pelvic: Deferred Rectal: Deferred Extremities: No calf tenderness, Normal capillary refill, Normal inspection, Normal range of motion, Non-tender, No pedal edema Musculoskeletal : Apperance: Normal Neurologic: Alert, lidar scientist II-XII nml as Tested, No Motor Deficits, Normal Affect, Normal Mood, No Sensory Deficits Cerebellar Function: Normal Reflexes: Normal Skin: Dry, Normal Color, Warm Lymphatic: No Adenopathy Was a procedure done? Was a procedure done?: No Differential Dx Differential Diagnosis: Asthma, Bronchitis, CHF, COPD, Pneumonia X-Ray, Labs, Meds, VS Vital Signs Date Time Temp Pulse Resp B/P (MAP) Pulse Ox O2 Delivery O2 Flow Rate FiO2 05/09/25 16:06 86 20 98 Room Air 3.0 05/09/25 16:06 98.3 86 20 127/67 (87) 98 98.3 05/09/25 14:00 98.6 89 20 114/65 (81) 92 98.6 05/09/25 14:00 Room Air* 0 21 Lab Test 05/09/25 15:57 05/09/25 15:53 05/09/25 14:34 Range/Units Troponin I High Sensitivity Pending 3 L </=34 ng/L Lactic Acid Level Pending 2.7 *H 0.4-2.0 mmol/L White Blood Count 7.8 4.4-10.8 10^3/uL Red Blood Count 3.16 L 4.0-5.20 10^6/uL Hemoglobin 10.0 L 12.2-16.2 g/dL Hematocrit 30.9 L 36.0-46.0 % Mean Corpuscular Volume 97.7 80.0-100.0 fL Mean Corpuscular Hemoglobin 31.6 28.0-32.0 pg Mean Corpuscular Hemoglobin Concent 32.4 32.0-36.0 g/dL Red Cell Distribution Width 14.3 11.8-14.3 % Platelet Count 213 140-450 10^3/uL Mean Platelet Volume 9.6 6.9-10.8 fL Neutrophils (%) (Auto) 81.5 H 37.0-80.0 % Lymphocytes (%) (Auto) 10.1 10.0-50.0 % Monocytes (%) (Auto) 6.9 0.0-12.0 % Eosinophils (%) (Auto) 0.9 0.0-7.0 % Basophils (%) (Auto) 0.6 0.0-2.0 % Neutrophils # (Auto) 6.4 1.6-8.6 10 ^3/uL Lymphocytes # (Auto) 0.8 0.4-5.4 10 ^3/uL Monocytes # (Auto) 0.5 0-1.3 10 ^3/uL Eosinophils # (Auto) 0.1 0-0.8 10 ^3/uL Basophils # (Auto) 0 0-0.2 10 ^3/uL Nucleated Red Blood Cells 0.1 % Sodium Level 144 136-145 mmol/L Potassium Level 3.9 3.5-5.1 mmol/L Chloride Level 107 98-107 mmol/L Carbon Dioxide Level 29 20-31 mmol/L Anion Gap 8 5-15 Blood Urea Nitrogen 11 9-23 mg/dL Creatinine 0.60 0.550-1.02 mg/dL Glomerular Filtration Rate Calc 105 >90 mL/min BUN/Creatinine Ratio 18.3 10.0-20.0 Serum Glucose 91 74-106 mg/dL Calcium Level 8.0 L 8.7-10.4 mg/dL Chest XR: FINDINGS: Lines and Tubes: None Lungs: Bibasilar areas of. Probable gas below the diaphragm pneumoperitoneum is of clinical concern recommend CT abdomen and pelvis. Pleura: No effusion. No pneumothorax. Cardiomediastinal contours: Unremarkable Bones: No acute osseous abnormality. IMPRESSION: 1. Bibasilar areas of atelectasis. 2. If pneumoperitoneum is of clinical concern recommend CT abdomen and pelvis. HS:Y Images Reviewed?: Images reviewed and evaluated by me Time of 1ST Reevaluation: 15:38 Reevaluation 1ST: Unchanged Patient Education/Counseling: Diagnosis, Treatment Family Education/Counseling: No Family Present Additional Information Previous visits reviewed: 04/07/25 for weakness The following tests were ordered, and results were reviewed by me: CBC, BMP, Troponin, UA, Blood Culture, Lactic Acid, Chest XR Additional Information was gathered from interviewing the following independent historians: None I reviewed and agreed with the following test results read by other providers: None I discussed treatment and results with medical personnel and: patient Comprehensive systems review obtained and negative except for what is stated in the HPI. SEPSIS Sepsis Screen Physician Orders Chest Portable (05/09/25 14:05) Blood Culture (05/09/25 14:05) Urinalysis (05/09/25 14:05) Troponin-I Hs (05/09/25 15:05) Troponin-I Hs (05/09/25 17:05) Ct Ab Pel With Iv Con Only (05/09/25 14:58) Vital Signs Date Time Temp Pulse Resp B/P (MAP) Pulse Ox O2 Delivery O2 Flow Rate FiO2 05/09/25 16:06 86 20 98 Room Air 3.0 05/09/25 16:06 98.3 86 20 127/67 (87) 98 98.3 05/09/25 14:00 98.6 89 20 114/65 (81) 92 98.6 05/09/25 14:00 Room Air* 0 21 Laboratory Tests Test 05/09/25 14:34 05/09/25 15:53 Lactic Acid Level 2.7 mmol/L (0.4-2.0) *H Pending White Blood Count 7.8 10^3/uL (4.4-10.8) Departure 1 Departure Time of Disposition: 16:25 (Patient with worsening shortness of breath. We will admit patient for further workup and expert consultation.) Impression: Primary Impression: Shortness of breath Disposition: ADMITTED INPATIENT Admit to: Med Surg Condition: Serious Critical Care Note Critical Care Time?: Yes Critical care comment: Acute shortness of breath Authorized and Performed by: Clint Nunn MD Total critical care time: Approximately 39 minutes Due to a high probability of clinically significant, life threatening deterioration, the patient required my highest level of preparedness to intervene emergently and I personally spent this critical care time directly and personally managing the patient. This critical care time included obtaining a history; examining the patient; pulse oximetry; ordering and review of studies; arranging urgent treatment with development of a management plan; evaluation of patient's response to treatment; frequent reassessment; and, discussions with other providers. This critical care time was performed to assess and manage the high probability of imminent, life-threatening deterioration that could result in multi-organ failure. It was exclusive of separately billable procedures and treating other patients and teaching time. Please see my other sections and the rest of the note for further information on patient assessment and treatment. Stability Stability form required: No Heart Score Heart Score: Heart Score Response (Comments) Value History N/A 0 EKG N/A 0 Age N/A 0 Risk Factors N/A 0 Troponin N/A 0 Total 0 I personally scribed for CLINT NUNN MD ([email or web address]) on 05/09/25 at 14:43. Electronically submitted by Adrien Iyer ([email or web address]). I personally scribed for CLINT NUNN MD ([email or web address]) on 05/09/25 at 14:45. Electronically submitted by Adrien Iyer ([email or web address]). CLINT NUNN MD May 09, 2025 14:43
[2025-05-09 14:48] LABS: Basophils # (auto) 0 10 ^3/uL (0-0.2); Basophils % (auto) 0.6 % (0.0-2.0); Eosinophils # (auto) 0.1 10 ^3/uL (0-0.8); Eosinophils % (auto) 0.9 % (0.0-7.0); Hematocrit 30.9 % (36.0-46.0); Lymphocytes # (auto) 0.8 10 ^3/uL (0.4-5.4); Lymphocytes % (auto) 10.1 % (10.0-50.0); Mean Corpuscular Hemoglobin 31.6 pg (28.0-32.0); Mean Corpuscular Hgb Conc. 32.4 g/dL (32.0-36.0); Mean Corpuscular Volume 97.7 fL (80.0-100.0); Monocytes # (auto) 0.5 10 ^3/uL (0-1.3); Monocytes % (auto) 6.9 % (0.0-12.0); Neutrophils # (auto) 6.4 10 ^3/uL (1.6-8.6); Neutrophils % (auto) 81.5 % (37.0-80.0); Nucleated Red Blood Cells % 0.1 %; Platelet Count (auto) 213 10^3/uL (140-450); Red Blood Cells 3.16 10^6/uL (4.0-5.20); Red Cell Distribution Width 14.3 % (11.8-14.3); White Blood Cell 7.8 10^3/uL (4.4-10.8)
[2025-05-09 14:55] LABS: Potassium 3.9 mmol/L (3.5-5.1); Sodium 144 mmol/L (136-145)
[2025-05-09 14:56] LABS: Anion Gap 8 (5-15); Carbon Dioxide 29 mmol/L (20-31); Chloride 107 mmol/L (98-107)
[2025-05-09 15:01] LABS: BUN/Creatinine Ratio 18.3 (10.0-20.0); Blood Urea Nitrogen 11 mg/dL (9-23); Glucose 91 mg/dL (74-106)
[2025-05-09 15:05] LABS: Lactic Acid w/Reflex 2.7 mmol/L (0.4-2.0)
[2025-05-09] MEDS: IOHEXOL 300 MG/ML 100ML BOTTLE IJ ONE (15:28)
[2025-05-09 16:15] VITALS: PULSE 86; RESP 20; O2SAT 98
[2025-05-09 17:03] LABS: Urine Bacteria FEW /hpf (None Seen); Urine Blood TRACE /uL (Negative); Urine Clarity Turbid (Clear); Urine Color Yellow (Yellow); Urine Mucus FEW (None Seen); Urine Protein, UAD Negative (Negative); Urine Specific Gravity 1.015 (1.001-1.035); Urine Squamous Epithelial Cell FEW /hpf (<5); Urine Urobilinogen Normal (Negative); Urine WBC 36 /HPF (0-5); Urine pH 5.5 (5.0-9.0)
--- NOTE | 2025-05-09 21:24 | DVH ---
Exam: CT CT AB PEL WITH IV CON ONLY History: better evaluate x-ray findings Comparison Study: None TECHNIQUE: A digital steel inspector image was obtained. During the uneventful, intravenous administration of c ontrast material, multislice data acquisition was obtained through the abdomen and pelvis. The data s et was subsequently reconstructed into multiplanar reformats. RADIATION DOSE: DLP 761.87 mGy.cm; CTDI vol 12.83 mGy. Findings: Liver: There is hepatomegaly and hepatic steatosis. There is a mildly nodular hepatic contour. Spleen: Borderline splenomegaly. Pancreas: There is pancreatic acinar atrophy. Gallbladder: Prior cholecystectomy. Adrenals: Unremarkable Kidneys: Unremarkable. Pelvic Viscera: Unremarkable. Vasculature: Unremarkable. Retroperitoneum: Unremarkable. Bowel: Large stool burden. Mild wall thickening involving several loops of small bowel. Mild wall thi ckening of the ascending colon. No free air. Postsurgical changes of the stomach. Musculoskeletal: No acute fracture. L2 vertebral body hemangioma. Soft tissues: Diffuse subcutaneous edema. Lungs: Minimal bibasilar atelectasis. Impression: 1. Nonspecific wall thickening of the ascending colon and several loops of small bowel, possibly refe rable to an enterocolitis or portal enteropathy/colopathy in the appropriate clinical setting. 2. Hepatosplenomegaly. Hepatic steatosis. 3. Additional findings as detailed.
[2025-05-09] MEDS ORDERED: ALBUTEROL SULF 2.5 MG/0.5ML(0.5%) NEB SOLN NEB PRN (22:00)
[2025-05-09] MEDS ORDERED: HYDROcodone-ACET 5/325MG TAB PO PRN (22:00)
[2025-05-09] MEDS ORDERED: DOCUSATE SOD 100 MG CAP PO PRN (22:00)
[2025-05-09 23:29] VITALS: BP 119/58; PULSE 88; RESP 18; O2SAT 95
--- NOTE | 2025-05-09 23:29 | DVHHP2 ---
History of Present Illness Reason for Visit: Acute respiratory failure History of Present Illness The patient is a 54-year-old female with multiple past medical history including depression, anemia, ileus, and depression who presented to [facility] ED with complaint of shortness of breaths. Patient reports symptoms progressively get worse with increased work of breathing, shortness of breaths at rest, abdominal pain, associated nausea, vomiting, getting worse that prompted this visit. Patient states she is supposedly going to be receiving care from [facility] some time in the future. Patient reports she followed up with PCP today, however, due to her worsening SOB, they advised that she come to the ED for further evaluation. Patient was seen and evaluated in the ED, laboratory data shows WBC 7.8, hemoglobin 10.0, hematocrit 20.9, platelets 213, sodium 144, potassium 3.9, BUN 11, creatinine 0.60, glucose 91, lactic acid 2.7 trending down to 1.6, troponin 4, blood pressure 119/58, heart rate 92, temperature 98.1 F, O2 saturation 94% on oxygen. Urinalysis positive for urinary tract infection. Abdomen/pelvis CT revealing nonspecific wall thickening of the ascending colon and several loops of small bowel, possibly referable to an enterocolitis or portal enteropathy/colopathy. Patient was started on IV antibiotic regimen Rocephin, please medication orders section in the computer. On my assessment, patient denied chest pain, no headache, no dizziness, no diaphoresis, currently on oxygen, no nausea, no vomiting, no fever, no chills. Patient was admitted for further evaluation and medical management. Past Medical History Anemia, Depression, hypoglycemia, Atrial septal defect, Ileus, unknown blood disorder Past Surgical History Appendectomy, BTL, Gastric Bypass Family History Reviewed, noncontributory to the management of this case. Past Social History The patient lives at home, denies smoking, alcohol or illicit drugs abuse. Review of Systems Constitutional: Yes: Weakness; No: Fever, Chills, Sweats, Malaise, Other Eyes: No: Pain, Vision change, Conjunctivae inflammation, Eyelid inflammation, Other, Redness ENT: No: Ear pain, Ear discharge, Nose pain, Nose discharge, Nose congestion, Mouth pain, Mouth swelling, Throat pain, Throat swelling, Other Respiratory: Shortness of breath, Other (SOB at rest); No: Cough, Dry, SOB with excertion, Wheezing, Hemoptysis, Pleuritic Pain, Sputum, Wheezing Cardiovascular: No: Chest Pain, Palpitations, Orthopnea, Paroxysmal Noc. Dyspnea, Edema, Lt Headedness, Other Gastrointestinal: Nausea, Vomiting; No: Abdominal Pain, Diarrhea, Constipation, Melena, Hematochezia, Other Genitourinary: No Dysuria, No Frequency, No Incontinence, No Hematuria, No Retention, No Other Musculoskeletal: No: other, neck pain, shoulder pain, arm pain, back pain, hand pain, leg pain, foot pain Skin: No: Rash, Lesions, Jaundice, Bruising, Other Neurological: No: Weakness, Numbness, Incoordination, Change in speech, Confusion, Seizures, Other Allergies: Coded Allergies: Acetaminophen (Verified Allergy, Unknown, 10/24/15) Sulfa Antibiotics (Verified Allergy, Unknown, 10/24/15) Uncoded Allergies: BLOOD THINNERS (Allergy, Unknown, 04/04/24) Medications Current Medications Medications Dose Ordered Sig/Tamar Route Start Time Stop Time Status Last Admin Dose Admin Ceftriaxone Sodium 50 ml @ 100 mls/hr DAILY@2100 IV 05/10/25 21:00 Sodium Chloride 10 ml Q8HR IV 05/09/25 22:00 Acetaminophen/ Hydrocodone Bitart 1 tab Q4HP PRN PO 05/09/25 22:00 Ondansetron HCl 4 mg Q4HP PRN IV 05/09/25 22:00 Docusate Sodium 100 mg BIDPRN PRN PO 05/09/25 22:00 Albuterol 2.5 mg Q4HPRN PRN NEB 05/09/25 22:00 Exam Vital Signs Vital Signs Date Time Temp Pulse Resp B/P (MAP) Pulse Ox O2 Delivery O2 Flow Rate FiO2 05/09/25 22:58 98.6 80 16 109/58 (75) 98 98.6 05/09/25 16:15 Nasal Cannula* 3 32 General Appearance: Alert, Oriented X3, Cooperative, No acute distress HEENT: Atraumatic, PERRLA, EOMI, Mucous membr. moist/pink Respiratory: Clear to auscultation, Normal air movement Cardiovascular: Regular rate, Normal S1, Normal S2, No murmurs Abdominal: Normal bowel sounds, Soft, No tenderness, No hepatospenomegaly, No masses Extremities: No clubbing, No cyanosis, No edema, Normal pulses, No tenderness/swelling Skin: No rashes, No breakdown, No significant lesion Neuro: Normal gait, Normal speech, Strength at 5/5 X4 ext, Normal tone, Sensation intact, Cranial nerves 3-12 NL, Reflexes 2+ Psych/Mental Status: Mental status NL, Mood NL Labs/Xrays Labs Test 05/09/25 18:05 05/09/25 16:45 05/09/25 15:53 05/09/25 14:34 Range/Units Troponin I High Sensitivity 4 </=34 ng/L Urine Color Yellow Yellow Urine Clarity Turbid H Clear Urine pH 5.5 5.0-9.0 Urine Specific [place] 1.015 1.001-1.035 Urine Protein Negative Negative Urine Ketones Negative Negative Urine Blood Trace H Negative /uL Urine Nitrite 2+ H Negative Urine Bilirubin Negative Negative Urine Urobilinogen Normal Negative mg/dL Urine Leukocyte Esterase 3+ Negative /uL Urine RBC 1 0 - 4 /hpf Urine Microscopic WBC 36 H 0-5 /HPF Urine Squamous Epithelial Cells Few <5 /hpf Urine Bacteria Few H None Seen /hpf Urine Mucus Few None Seen Urine Glucose Normal Normal mg/dL Lactic Acid Level 1.6 0.4-2.0 mmol/L White Blood Count 7.8 4.4-10.8 10^3/uL Red Blood Count 3.16 L 4.0-5.20 10^6/uL Hemoglobin 10.0 L 12.2-16.2 g/dL Hematocrit 30.9 L 36.0-46.0 % Mean Corpuscular Volume 97.7 80.0-100.0 fL Mean Corpuscular Hemoglobin 31.6 28.0-32.0 pg Mean Corpuscular Hemoglobin Concent 32.4 32.0-36.0 g/dL Red Cell Distribution Width 14.3 11.8-14.3 % Platelet Count 213 140-450 10^3/uL Mean Platelet Volume 9.6 6.9-10.8 fL Neutrophils (%) (Auto) 81.5 H 37.0-80.0 % Lymphocytes (%) (Auto) 10.1 10.0-50.0 % Monocytes (%) (Auto) 6.9 0.0-12.0 % Eosinophils (%) (Auto) 0.9 0.0-7.0 % Basophils (%) (Auto) 0.6 0.0-2.0 % Neutrophils # (Auto) 6.4 1.6-8.6 10 ^3/uL Lymphocytes # (Auto) 0.8 0.4-5.4 10 ^3/uL Monocytes # (Auto) 0.5 0-1.3 10 ^3/uL Eosinophils # (Auto) 0.1 0-0.8 10 ^3/uL Basophils # (Auto) 0 0-0.2 10 ^3/uL Nucleated Red Blood Cells 0.1 % Sodium Level 144 136-145 mmol/L Potassium Level 3.9 3.5-5.1 mmol/L Chloride Level 107 98-107 mmol/L Carbon Dioxide Level 29 20-31 mmol/L Anion Gap 8 5-15 Blood Urea Nitrogen 11 9-23 mg/dL Creatinine 0.60 0.550-1.02 mg/dL Glomerular Filtration Rate Calc 105 >90 mL/min BUN/Creatinine Ratio 18.3 10.0-20.0 Serum Glucose 91 74-106 mg/dL Calcium Level 8.0 L 8.7-10.4 mg/dL PATIENT: EDUARDO DAVENPORT CACCT: [id number] UNIT: [id number] : 1970 LOC: ER ROOM / BED: / AGE / SEX: 54 / F ADM STATUS: REG ER SERVICE [id number] ORDERING PHYSICIAN: CLINT FIGUEREDO MD PROCEDURE(s): ABPLIV - CT AB PEL WITH IV CON ONLY REASON: better evaluate x-ray findings ORDER NUMBER(s): [id number], ACCESSION NUMBER(s): [id number] Exam: CT CT AB PEL WITH IV CON ONLY History: better evaluate x-ray findings Comparison Study: None TECHNIQUE: A digital patient account analyst image was obtained. During the uneventful, intravenous administration of contrast material, multislice data acquisition was obtained through the abdomen and pelvis. The data set was subsequently reconstructed into multiplanar reformats. RADIATION DOSE: DLP 761.87 mGy.cm; CTDI vol 12.83 mGy. Findings: Liver: There is hepatomegaly and hepatic steatosis. There is a mildly nodular hepatic contour. Spleen: Borderline splenomegaly. Pancreas: There is pancreatic acinar atrophy. Gallbladder: Prior cholecystectomy. Adrenals: Unremarkable Kidneys: Unremarkable. Pelvic Viscera: Unremarkable. Vasculature: Unremarkable. Retroperitoneum: Unremarkable. Bowel: Large stool burden. Mild wall thickening involving several loops of small bowel. Mild wall thickening of the ascending colon. No free air. Postsurgical changes of the stomach. Musculoskeletal: No acute fracture. L2 vertebral body hemangioma. Soft tissues: Diffuse subcutaneous edema. Lungs: Minimal bibasilar atelectasis. Impression: 1. Nonspecific wall thickening of the ascending colon and several loops of small bowel, possibly referable to an enterocolitis or portal enteropathy/colopathy in the appropriate clinical setting. 2. Hepatosplenomegaly. Hepatic steatosis. 3. Additional findings as detailed. ORDERING PHYSICIAN: CLINT FIGUEREDO MD PROCEDURE(s): CXRP - CHEST PORTABLE REASON: shortness of breath ORDER NUMBER(s): [id number], ACCESSION NUMBER(s): [id number] CHEST RADIOGRAPH Indication: shortness of breath Technique: Single frontal view of the chest was obtained Comparison: XY CHEST PORTABLE on DOS: 10/22/24, XY CHEST PORTABLE on DOS: 04/04/24, CXRP on DOS: 06/29/22 FINDINGS: Lines and Tubes: None Lungs: Bibasilar areas of. Probable gas below the diaphragm pneumoperitoneum is of clinical concern recommend CT abdomen and pelvis. Pleura: No effusion. No pneumothorax. Cardiomediastinal contours: Unremarkable Bones: No acute osseous abnormality. IMPRESSION: 1. Bibasilar areas of atelectasis. 2. If pneumoperitoneum is of clinical concern recommend CT abdomen and pelvis. Assessment/Plan Assessment/Plan Acute respiratory failure Enterocolitis Urinary tract infection Generalized weakness Plan 1. Admit to telemetry unit 2. Breathing treatment 3. Pain control management 4. IV antibiotic management 5. Management of fluids and electrolytes 6. Consultation for hospitalist 7. Diagnostic test abdomen/pelvis CT 8. DVT prophylaxis-on SCDs 9. Repeat labs CBC, CMP in a.m. 10. Home medication reviewed and reconciled 11. Continue with current medical management 12. Treatment plan discussed with patient and RN. Patient verbalized understanding. Plan discussed with: Patient, Other (RN) My Orders Orders - BHARGAVI CONNELLY DNP Procedure Category Date Status Time Urine Bacterial JOEL 05/09/25 In Process Culture 21:51 Ceftriaxone 1gm/50ml PHA 05/10/25 In Process D5w (Rocephin) 21:00 Allergies RAINE 05/09/25 In Process 21:51 Code Status CODE 05/09/25 Transmitted 21:51 Sodium Chloride Lock PHA 05/09/25 In Process (Saline Lock Ns) 22:00 Oxygen Per Hour RT 05/09/25 Transmitted 21:51 Hydrocodone-Acet PHA 05/09/25 In Process 5/325mg Tab ([place] 22:00 Ondansetron Hcl PHA 05/09/25 In Process (Zofran) 22:00 Docusate Sodium PHA 05/09/25 In Process Capsule (Colace 22:00 Complete Blood Count LAB 05/10/25 Verified 04:00 Comprehensive LAB 05/10/25 Verified Metabolic Panel 04:00 Cardiac DIET 05/10/25 Transmitted Diet-2gna,Lofat,Lochol Breakfast Condition: Serious RAINE 05/09/25 In Process 21:51 Bedrest With Bathroom RAINE 05/09/25 In Process Privileg 21:51 Sequential RAINE 05/09/25 In Process Compression Device Albuterol Medneb PHA 05/09/25 In Process (Ventolin Medneb) 22:00 Admit ADMIT 05/09/25 Verified 23:27 Nitroglycerin PHA 05/09/25 Verified Sublingual (Ntrostat 23:30 Morphine Sulfate PHA 05/09/25 Verified Injection 23:30 Stat Ekg For Chest RAINE 05/09/25 Verified Pain 23:27 Notify Md Of Changes RAINE 05/09/25 Verified From Base 23:27 Cancer Registry Coordinator For RAINE 05/09/25 Verified 24 Hours 23:27 Emergency Dysrhythmia RAINE 05/09/25 Verified Protocol 23:27 Rhythm Strips Once RAINE 05/09/25 Verified Every Shift 23:27 Oxygen By Nasal RT 05/09/25 Verified Cannula 23:27 Problem List: (1) Acute respiratory failure (2) Enterocolitis (3) Urinary tract infection (4) Generalized weakness Date of Service: May 09, 2025 Billing Provider: BHARGAIV CONNELLY DNP Common Visit Codes: [id number] INP/OBS CARE (HIGH) BHARGAVI CONNELLY DNP May 09, 2025 23:29
[2025-05-09] MEDS ORDERED: MORPHINE SULFATE INJ 2 MG/ml SYRG IV PRN (23:30)
[2025-05-09] MEDS ORDERED: NITROGLYCERIN 0.4 MG SL TAB SL PRN (23:30)
[2025-05-10] VITALS (9 sets, daily range): BP systolic 110–130; BP diastolic 52–71; PULSE 76–100; RESP 15–18; TEMP 97.6–98.7; O2SAT 90–97
[2025-05-10] MEDS: SODIUM CHLOR 0.9% PF (SALINE LOCK) 10ML VIAL/SYR IV SCH (00:19)
[2025-05-10] MEDS: cefTRIAXone 1GM/50ML D5W 50 ML IV ONE (00:19)
[2025-05-10] MEDS: ONDANSETRON HCL 4 MG/2 ML VIAL IV PRN (00:47)
[2025-05-10] MEDS: KETOROLAC TROMETH 30 MG/ML 1ML VIAL IV ONE ×3 (01:03→22:03)
[2025-05-10] MEDS ORDERED: oxyCODONE ER 10 MG TAB PO ONE ×2 (02:30→02:45)
[2025-05-10] MEDS: oxyCODONE HCL 5MG TAB PO PRN ×2 (03:19→18:48)
[2025-05-10 07:12] LABS: Basophils # (auto) 0 10 ^3/uL (0-0.2); Basophils % (auto) 0.4 % (0.0-2.0); Eosinophils # (auto) 0 10 ^3/uL (0-0.8); Eosinophils % (auto) 0.1 % (0.0-7.0); Hematocrit 29.2 % (36.0-46.0); Hemoglobin 9.7 g/dL (12.2-16.2); Lymphocytes # (auto) 1.2 10 ^3/uL (0.4-5.4); Lymphocytes % (auto) 18.7 % (10.0-50.0); Mean Corpuscular Hemoglobin 32.1 pg (28.0-32.0); Mean Corpuscular Hgb Conc. 33.1 g/dL (32.0-36.0); Mean Corpuscular Volume 97.2 fL (80.0-100.0); Monocytes # (auto) 0.5 10 ^3/uL (0-1.3); Monocytes % (auto) 7.4 % (0.0-12.0); Neutrophils # (auto) 4.5 10 ^3/uL (1.6-8.6); Neutrophils % (auto) 73.4 % (37.0-80.0); Nucleated Red Blood Cells % 0.1 %; Platelet Count (auto) 197 10^3/uL (140-450); Red Blood Cells 3.01 10^6/uL (4.0-5.20); Red Cell Distribution Width 14.4 % (11.8-14.3); White Blood Cell 6.2 10^3/uL (4.4-10.8)
[2025-05-10 07:23] LABS: Alanine Aminotransferase 60 U/L (7-40); Albumin 2.5 g/dL (3.2-4.8); Alkaline Phosphatase 216 U/L (46-116); Anion Gap 7 (5-15); Aspartate Aminotransferase 82 U/L (<34); BUN/Creatinine Ratio 16.7 (10.0-20.0); Blood Urea Nitrogen 9 mg/dL (9-23); Calcium 8.2 mg/dL (8.7-10.4); Carbon Dioxide 30 mmol/L (20-31); Chloride 106 mmol/L (98-107); Glucose 71 mg/dL (74-106); Potassium 4.2 mmol/L (3.5-5.1); Sodium 143 mmol/L (136-145)
[2025-05-10 07:24] LABS: Bilirubin, Total 0.8 mg/dL (0.2-1.0)
[2025-05-10] MEDS: SODIUM CHLORIDE 0.9% 1,000 ML IV SCH (16:45)
[2025-05-10] MEDS: PIPERACILLIN-TAZOB 3.375GM 100 ML IV ONE (17:24)
--- NOTE | 2025-05-10 19:31 | DVHPN2 ---
Subjective I am assuming the care of the patient from today onwards. Patient has a known history of gastric bypass, some unknown blood disorder presented to the hospital with a generalized weakness and fatigue found to have enterocolitis. Reviewed: Care Plan Changes from previous H/P or p: No Changes Eyes: No Pain, No Vision change, No Conjunctivae inflammation, No Eyelid inflammation, No Other, No Redness ENT: No Ear pain, No Ear discharge, No Nose pain, No Nose discharge, No Nose congestion, No Mouth pain, No Mouth swelling, No Throat pain, No Throat swelling, No Other Cardiovascular: No Chest Pain, No Palpitations, No Orthopnea, No Paroxysmal Noc. Dyspnea, No Edema, No Lt Headedness, No Other Respiratory: No Cough, No Dry; Shortness of breath; No SOB with excertion, No Wheezing, No Hemoptysis, No Pleuritic Pain, No Sputum; Other (SOB at rest) Gastrointestinal: Nausea, Vomiting; No Abdominal Pain, No Diarrhea, No Constipation, No Melena, No Hematochezia, No Other Genitourinary: No Dysuria, No Frequency, No Incontinence, No Hematuria, No Retention, No Other Musculoskeletal: No other, No neck pain, No shoulder pain, No arm pain, No back pain, No hand pain, No leg pain, No foot pain Skin: No Rash, No Lesions, No Jaundice, No Bruising, No Other Objective Vitals Vital Signs Date Time Temp Pulse Resp B/P (MAP) Pulse Ox O2 Delivery O2 Flow Rate FiO2 05/10/25 17:00 97.6 100 18 130/71 (90) 94 97.6 05/10/25 08:00 Room Air* 0 21 Intake/Output Intake and Output 05/10/25 07:00 Intake Total 887 ml Balance 887 ml Intake Oral 837 ml IV Total 50 ml # Voids 1 Exam HEENT pupils are reactive Neck is supple CV is S1-S2 regular rate and rhythm Respiratory diminished breath sounds bases GI positive bowel sound, no guarding no rigidity positive bowel sounds Extremity no edema 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 no motor 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 Medications Current Medications Medications Dose Ordered Sig/Tamar Route Start Time Stop Time Status Last Admin Dose Admin Sodium Chloride 10 ml Q8HR IV 05/09/25 22:00 05/10/25 13:22 10 ML Ondansetron HCl 4 mg Q4HP PRN IV 05/09/25 22:00 05/10/25 05:10 4 MG Docusate Sodium 100 mg BIDPRN PRN PO 05/09/25 22:00 Albuterol 2.5 mg Q4HPRN PRN NEB 05/09/25 22:00 Nitroglycerin 0.4 mg Q5MINP PRN SL 05/09/25 23:30 Morphine Sulfate 2 mg Q30M PRN IV 05/09/25 23:30 Piperacillin Sod/ Tazobactam Sod 100 ml @ 25 mls/hr Q8HR IV 05/10/25 22:00 Sodium Chloride 1,000 ml @ 125 mls/hr Q8H IV 05/10/25 16:45 05/10/25 16:45 125 MLS/HR Oxycodone HCl 15 mg Q6HP PRN PO 05/10/25 16:45 05/10/25 18:48 15 MG Laboratory Results Laboratory Tests 05/10/25 06:28 Chemistry Test 05/10/25 06:28 Albumin 2.5 g/dL (3.2-4.8) L Calcium Level 8.2 mg/dL (8.7-10.4) L Total Protein 5.0 g/dL (5.7-8.2) L LFT Test 05/10/25 06:28 Alanine Aminotransferase (ALT) 60 U/L (7-40) H Alkaline Phosphatase 216 U/L (46-116) H Aspartate Amino Transferase (AST) 82 U/L (<34) H Total Bilirubin 0.8 mg/dL (0.2-1.0) Urinalysis Test 05/09/25 16:45 Urine Color Yellow (Yellow) Urine Clarity Turbid (Clear) H Urine pH 5.5 (5.0-9.0) Urine Specific [place] 1.015 (1.001-1.035) Urine Protein Negative (Negative) Urine Ketones Negative (Negative) Urine Blood Trace /uL (Negative) H Urine Nitrite 2+ (Negative) H Urine Bilirubin Negative (Negative) Urine Urobilinogen Normal mg/dL (Negative) Urine Leukocyte Esterase 3+ /uL (Negative) Urine RBC 1 /hpf (0 - 4) Urine Microscopic WBC 36 /HPF (0-5) H Urine Squamous Epithelial Cells Few /hpf (<5) Urine Bacteria Few /hpf (None Seen) H Urine Mucus Few (None Seen) Urine Glucose Normal mg/dL (Normal) Microbiology Microbiology Date/Time Source Procedure Growth Status 05/09/25 16:45 Voided Urine Urine Culture - Preliminary Resulted 05/09/25 14:34 Blood Blood Culture - Preliminary NO GROWTH AFTER 24 HOURS OF INCUBATION. Resulted Assessment/Plan Assessment/Plan 54-year-old female with a known history of gastric bypass, blood disorder with a G6 PD deficiency, malnutrition who initially presented to the hospital with generalized weakness and failure to thrive as well as increasing fatigue found to have 1. Enterocolitis 2. Abdominal pain secondary to 1. 3. Status post gastric bypass surgery 4. G6PD deficiency disorder 5. Urinary tract infection with a Gram-negative rods -IV antibiotics, GI [facility] on-call, ambulation as tolerated as patient does not want any blood thinner because she is allergic to those. Plan discussed with: Patient My Orders Orders - SELVIN MARIE MD Procedure Category Date Status Time Piperacillin-Tazob PHA 05/10/25 In Process 3.375gm (Zosyn 3.375g 22:00 Regular Diet DIET 05/10/25 Transmitted Dinner Sodium Chloride 0.9% PHA 05/10/25 In Process 16:45 Oxycodone Immediate PHA 05/10/25 In Process Rel Tablet 16:45 Date of Service: May 10, 2025 Billing Provider: SELVIN MARIE MD Common Visit Codes: [id number] INP/OBS CARE(MOD) SELVIN MARIE MD May 10, 2025 19:31
[2025-05-10] MEDS ORDERED: cefTRIAXone 1GM/50ML D5W 50 ML IV SCH (21:00)
[2025-05-10] MEDS: PIPERACILLIN-TAZOB 3.375GM 100 ML IV SCH (22:02)
[2025-05-11] VITALS (7 sets, daily range): BP systolic 101–121; BP diastolic 52–69; PULSE 77–98; RESP 17–18; TEMP 97.9–100.3; O2SAT 92–100
[2025-05-11 06:43] LABS: Chloride 105 mmol/L (98-107); Potassium 4.3 mmol/L (3.5-5.1); Sodium 142 mmol/L (136-145)
[2025-05-11 06:44] LABS: Anion Gap 9 (5-15); Carbon Dioxide 28 mmol/L (20-31)
[2025-05-11 06:49] LABS: BUN/Creatinine Ratio 13.4 (10.0-20.0); Blood Urea Nitrogen 9 mg/dL (9-23); Glucose 84 mg/dL (74-106)
[2025-05-11 06:50] LABS: Calcium 8.2 mg/dL (8.7-10.4)
[2025-05-11] MEDS: IBUPROFEN 600 MG TAB PO ONE (13:43)
[2025-05-11] MEDS ORDERED: AUG875T PO (14:52)
--- NOTE | 2025-05-11 15:02 | DVHDS2 ---
Discharge Summary Date of Admission May 09, 2025 at 23:27 Date of Discharge: May 11, 2025 Labs/Diagnostic Data: Laboratory Results Test 05/11/25 05:15 05/11/25 03:24 05/10/25 06:28 05/09/25 18:05 Sodium Level 142 mmol/L (136-145) Potassium Level 4.3 mmol/L (3.5-5.1) Chloride Level 105 mmol/L (98-107) Carbon Dioxide Level 28 mmol/L (20-31) Anion Gap 9 (5-15) Blood Urea Nitrogen 9 mg/dL (9-23) Creatinine 0.67 mg/dL (0.550-1.02) Glomerular Filtration Rate Calc 103 mL/min (>90) BUN/Creatinine Ratio 13.4 (10.0-20.0) Serum Glucose 84 mg/dL (74-106) Calcium Level 8.2 mg/dL (8.7-10.4) POC Glucose 81 mg/dl (70-106) White Blood Count 6.2 10^3/uL (4.4-10.8) Red Blood Count 3.01 10^6/uL (4.0-5.20) Hemoglobin 9.7 g/dL (12.2-16.2) Hematocrit 29.2 % (36.0-46.0) Mean Corpuscular Volume 97.2 fL (80.0-100.0) Mean Corpuscular Hemoglobin 32.1 pg (28.0-32.0) Mean Corpuscular Hemoglobin Concent 33.1 g/dL (32.0-36.0) Red Cell Distribution Width 14.4 % (11.8-14.3) Platelet Count 197 10^3/uL (140-450) Mean Platelet Volume 9.9 fL (6.9-10.8) Neutrophils (%) (Auto) 73.4 % (37.0-80.0) Lymphocytes (%) (Auto) 18.7 % (10.0-50.0) Monocytes (%) (Auto) 7.4 % (0.0-12.0) Eosinophils (%) (Auto) 0.1 % (0.0-7.0) Basophils (%) (Auto) 0.4 % (0.0-2.0) Neutrophils # (Auto) 4.5 10 ^3/uL (1.6-8.6) Lymphocytes # (Auto) 1.2 10 ^3/uL (0.4-5.4) Monocytes # (Auto) 0.5 10 ^3/uL (0-1.3) Eosinophils # (Auto) 0 10 ^3/uL (0-0.8) Basophils # (Auto) 0 10 ^3/uL (0-0.2) Nucleated Red Blood Cells 0.1 % Total Bilirubin 0.8 mg/dL (0.2-1.0) Aspartate Amino Transferase (AST) 82 U/L (<34) Alanine Aminotransferase (ALT) 60 U/L (7-40) Alkaline Phosphatase 216 U/L (46-116) Total Protein 5.0 g/dL (5.7-8.2) Albumin 2.5 g/dL (3.2-4.8) Troponin I High Sensitivity 4 ng/L (</=34) Test 05/09/25 16:45 05/09/25 15:53 Urine Color Yellow (Yellow) Urine Clarity Turbid (Clear) Urine pH 5.5 (5.0-9.0) Urine Specific [place] 1.015 (1.001-1.035) Urine Protein Negative (Negative) Urine Ketones Negative (Negative) Urine Blood Trace /uL (Negative) Urine Nitrite 2+ (Negative) Urine Bilirubin Negative (Negative) Urine Urobilinogen Normal mg/dL (Negative) Urine Leukocyte Esterase 3+ /uL (Negative) Urine RBC 1 /hpf (0 - 4) Urine Microscopic WBC 36 /HPF (0-5) Urine Squamous Epithelial Cells Few /hpf (<5) Urine Bacteria Few /hpf (None Seen) Urine Mucus Few (None Seen) Urine Glucose Normal mg/dL (Normal) Lactic Acid Level 1.6 mmol/L (0.4-2.0) Other Laboratory Tests 05/11/25 05:15 05/10/25 06:28 Brief Hx & Hospital Course: 54-year-old female with a known history of gastric bypass, blood disorder with a G6 PD deficiency, malnutrition who initially presented to the hospital with generalized weakness and failure to thrive as well as increasing fatigue found to have enterocolitis. Patient's abdominal pain has been resolved. Patient does have known history of gastric bypass surgery. Patient also has a G6PD deficiency disorder. Patient was found to have UTI with Gram-negative rods although final culture shows mixed angelia. Patient is requesting to go home as her meals are different at home as compared to hospital which she does not like it. Patient is currently tolerating diet denies any nausea and vomiting abdominal pain we will be discharged home with a close follow up as an outpatient as scheduled with the PCP and her GI physician. Condition at Discharge: Stable Final Diagnosis/Problems List 54-year-old female with a known history of gastric bypass, blood disorder with a G6 PD deficiency, malnutrition who initially presented to the hospital with generalized weakness and failure to thrive as well as increasing fatigue found to have 1. Enterocolitis 2. Abdominal pain secondary to 1. 3. Status post gastric bypass surgery 4. G6PD deficiency disorder 5. Urinary tract infection with a Gram-negative rods Discharge Disposition: Home SNF Discharge Will this Physician continue t: No Discharge Instruct/Medications Diet: See Comment Diet comment: Soft diet as tolerated Activity: See Comment Activity comment: No driving, no signing legal documents, no playing on heavy machinery while on oxycodone at home. Follow Up/Referral: Follow up with the PCP in one week Follow up with GI in 1-2 weeks Medications: Augmentin as prescribed. Discharge Statement: "Patient was advised to return to the ER or call 911 if any headaches, dizziness, shortness of breath, chest pain, abdominal pain, bleeding, fevers, or worsening of medical condition. Patient was counseled about treatment plan, medications, possible side effects, patientverbalized understanding. All questions were answered to the best of my ability. This discharge took greater then 30 minutes in planning, reviewing documentation, counseling the patient, and discussing with other team members." ASSESSMENT ASSESSMENT Assessment 54-year-old female with a known history of gastric bypass, blood disorder with a G6 PD deficiency, malnutrition who initially presented to the hospital with generalized weakness and failure to thrive as well as increasing fatigue found to have 1. Enterocolitis 2. Abdominal pain secondary to 1. 3. Status post gastric bypass surgery 4. G6PD deficiency disorder 5. Urinary tract infection with a Gram-negative rods Date of Service: May 11, 2025 Billing Provider: SELVIN MARIE MD Common Visit Codes: [id number]/OBS DISCH DAY >30min SELVIN MARIE MD May 11, 2025 15:02
--- NOTE | 2025-05-11 15:41 | DVHINCON2 ---
Date of service: May 11, [address] Marie Reason for Consultation Possible colitis History of Present Illness The patient is a 54-year-old female with multiple past medical history who presented to [facility] ED with complaint of shortness of breaths. Patient reports symptoms progressively get worse with increased work of breathing, shortness of breaths at rest, abdominal pain, associated nausea, vomiting, getting worse that prompted this visit. Patient states she is supposedly going to be receiving care from [facility] some time in the future. Patient reports she followed up with PCP today, however, due to her worsening SOB, they advised that she come to the ED for further evaluation. GI was consulted because of abnormal finding GI tract imaging. Abdomen/pelvis CT revealing nonspecific wall thickening of the ascending colon and several loops of small bowel, possibly referable to an enterocolitis or portal enteropathy/colopathy. Patient was seen at bedside ambulating. She denied any diarrhea or abdominal pain. Patient stated she did not come to the hospital for any abdominal symptoms. Patient stated she has doctors at [facility] who follow her Past Medical History Past Medical History Anemia, Depression, hypoglycemia, Atrial septal defect, Ileus, unknown blood disorder Past Surgical History Past Surgical History Appendectomy, BTL, Gastric Bypass Family History: Family history: Congenital anomaly G8 MOTHER Family history: Depression (situation) G8 MOTHER G8 FATHER Family history: Glaucoma Allergies: Coded Allergies: Acetaminophen (Verified Allergy, Unknown, 10/24/15) Sulfa Antibiotics (Verified Allergy, Unknown, 10/24/15) Uncoded Allergies: BLOOD THINNERS (Allergy, Unknown, 04/04/24) Home Meds Active Scripts Amoxicillin & Pot Clavulanate (AUGMENTIN TABLET) 875 Mg Tb, 875 MG PO BID for 5 Days, #10 TAB Prov:SELVIN MARIE MD 05/11/25 Reported Medications Ondansetron HCl (Ondansetron Hydrochloride) 8 Mg Tab, 8 MG PO Q6HP PRN for NAUSEA OR VOMITING 04/05/24 Oxycodone HCl (Oxycodone Hydrochloride) 15 Mg Tab, 1 TAB PO PRN for PAIN SCALE 7 THRU 10 04/05/24 Tizanidine Hydrochloride (Tizanidine Hcl) 4 Mg Tab, 1 TAB PO BIDPRN 04/05/24 Current Medications Current Medications Medications (Trade) Dose Ordered Sig/Tamar Route PRN Reason Start Time Stop Time Status Last Admin Ceftriaxone Sodium 50 ml @ 100 mls/hr DAILY@2100 IV 05/10/25 21:00 05/10/25 14:42 DC Piperacillin Sod/ Tazobactam Sod 100 ml @ 25 mls/hr Q8HR IV 05/10/25 22:00 05/11/25 14:45 Sodium Chloride 1,000 ml @ 125 mls/hr Q8H IV 05/10/25 16:45 05/10/25 16:45 Oxycodone HCl 15 mg Q6HP PRN PO MODERATE PAIN (4-6 PAIN SCALE) 05/10/25 16:45 05/11/25 14:47 Vital Signs Vital Signs Date Time Temp Pulse Resp B/P (MAP) Pulse Ox O2 Delivery O2 Flow Rate FiO2 05/11/25 13:00 98.1 83 18 113/57 (75) 100 98.1 05/11/25 08:00 Nasal Cannula* 2 28 Physical Exam HEENT pupils are reactive Neck is supple ; mild pallor CV is S1-S2 regular rate and rhythm Respiratory diminished breath sounds bases GI positive bowel sound, no guarding no rigidity positive bowel sounds Extremity no edema 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 Labs/Diagnostic Data Labs Test 05/11/25 05:15 05/11/25 03:24 05/10/25 06:28 05/09/25 18:05 Range/Units Sodium Level 142 136-145 mmol/L Potassium Level 4.3 3.5-5.1 mmol/L Chloride Level 105 98-107 mmol/L Carbon Dioxide Level 28 20-31 mmol/L Anion Gap 9 5-15 Blood Urea Nitrogen 9 9-23 mg/dL Creatinine 0.67 0.550-1.02 mg/dL Glomerular Filtration Rate Calc 103 >90 mL/min BUN/Creatinine Ratio 13.4 10.0-20.0 Serum Glucose 84 74-106 mg/dL Calcium Level 8.2 L 8.7-10.4 mg/dL POC Glucose 81 70-106 mg/dl White Blood Count 6.2 4.4-10.8 10^3/uL Red Blood Count 3.01 L 4.0-5.20 10^6/uL Hemoglobin 9.7 L 12.2-16.2 g/dL Hematocrit 29.2 L 36.0-46.0 % Mean Corpuscular Volume 97.2 80.0-100.0 fL Mean Corpuscular Hemoglobin 32.1 H 28.0-32.0 pg Mean Corpuscular Hemoglobin Concent 33.1 32.0-36.0 g/dL Red Cell Distribution Width 14.4 H 11.8-14.3 % Platelet Count 197 140-450 10^3/uL Mean Platelet Volume 9.9 6.9-10.8 fL Neutrophils (%) (Auto) 73.4 37.0-80.0 % Lymphocytes (%) (Auto) 18.7 10.0-50.0 % Monocytes (%) (Auto) 7.4 0.0-12.0 % Eosinophils (%) (Auto) 0.1 0.0-7.0 % Basophils (%) (Auto) 0.4 0.0-2.0 % Neutrophils # (Auto) 4.5 1.6-8.6 10 ^3/uL Lymphocytes # (Auto) 1.2 0.4-5.4 10 ^3/uL Monocytes # (Auto) 0.5 0-1.3 10 ^3/uL Eosinophils # (Auto) 0 0-0.8 10 ^3/uL Basophils # (Auto) 0 0-0.2 10 ^3/uL Nucleated Red Blood Cells 0.1 % Total Bilirubin 0.8 0.2-1.0 mg/dL Aspartate Amino Transferase (AST) 82 H <34 U/L Alanine Aminotransferase (ALT) 60 H 7-40 U/L Alkaline Phosphatase 216 H 46-116 U/L Total Protein 5.0 L 5.7-8.2 g/dL Albumin 2.5 L 3.2-4.8 g/dL Troponin I High Sensitivity 4 </=34 ng/L Test 05/09/25 16:45 05/09/25 15:53 Range/Units Urine Color Yellow Yellow Urine Clarity Turbid H Clear Urine pH 5.5 5.0-9.0 Urine Specific [place] 1.015 1.001-1.035 Urine Protein Negative Negative Urine Ketones Negative Negative Urine Blood Trace H Negative /uL Urine Nitrite 2+ H Negative Urine Bilirubin Negative Negative Urine Urobilinogen Normal Negative mg/dL Urine Leukocyte Esterase 3+ Negative /uL Urine RBC 1 0 - 4 /hpf Urine Microscopic WBC 36 H 0-5 /HPF Urine Squamous Epithelial Cells Few <5 /hpf Urine Bacteria Few H None Seen /hpf Urine Mucus Few None Seen Urine Glucose Normal Normal mg/dL Lactic Acid Level 1.6 0.4-2.0 mmol/L Microbiology Date/Time Source Procedure Growth Status 05/09/25 16:45 Voided Urine Urine Culture - Final Complete 05/09/25 14:34 Blood Blood Culture - Preliminary NO GROWTH AFTER 48 HOURS OF INCUBATION. Resulted Problems(with codes): (1) Generalized weakness (2) Enterocolitis (3) Urinary tract infection (4) Shortness of breath (5) Chronic anemia (6) Hypoalbuminemia (7) Weakness Plan/Recommendation Plan Patient's abnormal findings of the CT scan are likely related to fluid overload from hypoalbuminemia and previous gastric bypass Patient does not have any clinical signs of active colitis She will follow up with her doctors in [facility] to decide about EGD and colonoscopy Patient at this time does not want any further GI workup She was given my contact information to follow up in my office as an outpatient if required Plan discussed with: Patient RENETTA RIBERA MD May 11, 2025 15:41
[2025-05-12 10:27] LABS: Hepatitis B Surface Antigen Negative (Negative); Hepatitis C Antibody Negative (Negative)
== END 2025-05-11 17:30 | disposition home or self-care (01) | DRG 249 ==
LOC: ER 13:46 → OVERFLOW 23:27 → TELE-WESTW 05-10 16:11
PROVIDERS: ADMIT Nurse Practitioner Family; ATTEND Nurse Practitioner Acute Care
DX: A08.4 Viral intestinal infection, unspecified (principal); J96.00 Acute respiratory failure, unspecified whether with hypoxia or hypercapnia; E88.09 Other disorders of plasma-protein metabolism, not elsewhere classified; R62.7 Adult failure to thrive; Q21.10 Atrial septal defect, unspecified; N30.00 Acute cystitis without hematuria; D75.A Glucose-6-phosphate dehydrogenase (G6PD) deficiency without anemia; Z68.29 Body mass index [BMI] 29.0-29.9, adult; F32.A Depression, unspecified; B96.89 Other specified bacterial agents as the cause of diseases classified elsewhere; Z81.8 Family history of other mental and behavioral disorders; Z88.6 Allergy status to analgesic agent; Z98.84 Bariatric surgery status
CPT/HCPCS: 36415; 71045; 74177; 80048; 80053; 81001; 82962; 83605; 84484; 85025; 86803; 86850; 86900; 86901; 87040; 87086; 87340; 96365; 96375; 97163; 99291; G0378; J1885; J2405; J2543

== ENCOUNTER 2025-05-29 12:30 | Inpatient (IN) | payer MEDICAID ==
[~2025-05-29] VITALS: Ht 165.1 cm; Wt 68.3 kg
[~2025-05-29 12:30] MED LIST changes: +AUG875T PO
--- NOTE | 2025-05-29 12:46 | ED.PDOC ---
GI ASSESSMENT HPI Comments HPI: This is a 54 year old female SWAPNA presenting to the ED with chief complaint of abdominal pain/failure to thrive. Patient reports that she has been experiencing poor appetite with associated generalized weakness, nausea, and malnutrition for the past 3 days. Patient relays that she has also been experiencing abdominal pain for the past 2 months, being admitted to the ED on 05/09/25 for the same complaint. EMS states patient was 82% on RA, but when placed on 2L she went up to 96% O2 saturation. EMS notes that they also provided glucose for the patient until her BG read in the 200s, being discontinued. Patient denies any vomiting, diarrhea, chest pain, SOB, dizziness, fever, or chills. Initial Vitals BP: 136/76 HR: 91 RR: 18 O2 Sat: 96% Temp: 98.6F Past Medical history: G6PD Deficiency, UTIs, Skin Cancer Past Surgical history: Gastric Bypass Social History: Denies smoking, ETOH, and drug use. Allergies: Acetaminophen, Blood thinners, Sulfa antibiotics REVIEW OF SYSTEMS: CONSTITUTIONAL: Denies acute: fever, diaphoresis, chills, HEAD: Denies acute: headache, photophobia Eyes: Denies acute: Double vision, vision loss, eye pain, eye discharge. EARS: Denies acute: tinnitus, hearing loss, ear discharge, ear pain, THROAT: Denies acute: sore throat, swelling, difficulty swallowing , pain with swallowing, change in voice. NECK: Denies acute: neck pain, neck swelling, stiff neck. HEART: Denies acute : chest pain, palpitations, LUNGS: Denies acute: SOB, wheezing, cough, hemoptysis ABDOMEN: Denies acute: Vomiting, diarrhea, melena , hematemesis, hematochezia SKIN: Denies acute: rash, redness, lesions, itchiness. EXTREMITIES: Denies acute: calf pain, numbness, tingling, weakness, denies pain in extremity. Denies acute: Low back pain. Neuro: Denies acute: focal neurological deficit, motor or sensory focal neurological deficit, tremors, seizure like activity, confusion, dizziness, change in mental status, loss of bowel or bladder function, cauda equina like symptoms. : Denies acute: dysuria, hematuria, flank pain, increase in urinary frequency. PSYCH: Denies acute: hallucination, suicidal ideation, homicidal ideation. FEMALE: Denies acute: abnormal vaginal bleeding, foul odor, unusual discharge. PHYSICAL EXAM: General: ----mild----acute distress, awake and alert. Head: normocephalic, atraumatic. Neck: supple, trachea is midline, no swelling. Throat: Normal phonation. Eyes:, no erythema, no purulent discharge, no proptosis, no icterus. Heart: regular rate, regular rhythm, no significant murmur appreciated. Lungs: no apparent respiratory distress, Able to speak in full sentences. No wheezing, no rhonchi, no crackles. No stridors Clear to auscultation bilaterally. Abdomen: Nonspecific generalized mild tender to palpation, non distended, soft, no guarding, no rebound, + bowel sounds. Neuro: Awake, Alert, oriented to name, self, situation, follows commands GCS=15. Speech is normal. Skin: no petechia, no purpura, no cyanosis, non-pale, not jaundice. Lower extremities: --no - Pitting edema no deformity, no focal swelling, no calf TTP. Makes eye contact. moves all four extremities. Face: no apparent facial droop. ED COURSE: DISCLAIMER: This medical document was created using an electronic medical record system with voice recognition software and computerized dictation system. Although this document has been carefully reviewed, there might still be some phonetic and typographical errors. Occasional wrong-word or "sound-alike" substitutions may have occurred due to the inherent limitations of voice recognition software. These areas are purely typographical due to imperfections of the software programs and do not reflect any compromise in the patient's medical care. Please read the chart carefully and recognize, using context, where these substitutions have occurred. Time Seen by MD: 12:43 Primary Care Provider: brittany Reviewed Notes: Medications, Allergies Allergies: Coded Allergies: Acetaminophen (Verified Allergy, Unknown, 10/24/15) Sulfa Antibiotics (Verified Allergy, Unknown, 10/24/15) Uncoded Allergies: BLOOD THINNERS (Allergy, Unknown, 04/04/24) Home Meds Active Scripts Amoxicillin & Pot Clavulanate (AUGMENTIN TABLET) 875 Mg Tb, 875 MG PO BID for 5 Days, #10 TAB Prov:SELVIN MARIE MD 05/11/25 Reported Medications Ondansetron HCl (Ondansetron Hydrochloride) 8 Mg Tab, 8 MG PO Q6HP PRN for N AUSEA OR VOMITING 04/05/24 Oxycodone HCl (Oxycodone Hydrochloride) 15 Mg Tab, 1 TAB PO PRN for PAIN SCALE 7 THRU 10 04/05/24 Tizanidine Hydrochloride (Tizanidine Hcl) 4 Mg Tab, 1 TAB PO BIDPRN 04/05/24 Information Source: Patient, Emergency Med Personnel Mode of Arrival: EMS Was a procedure done? Was a procedure done?: No GI differential Dx Differential Diagnosis: Other (As far as generalized weakness and failure to thrive, Includes but not limited to thyroid disease, encephalopathy, electrolyte abnormality, sepsis, infection, intracranial pathology, drug adverse effects, arrhythmia, kidney insufficiency, ACS, CVA, malignancy, anemia. As far as abdominal pain: DDX include Diverticulitis, colitis, gastroenteritis, acute abdomen, SBO, enteritis, constipation, volvulus, appendicitis, Gallbladder disease, choledocolithiasis, ascending cholangitis, pancreatitis, intraAbdominal mass/neoplasm, hepatitis, UTI, pylonephritis, kidney stone, aneurysm, dissection, Inflammatory bowel disease, gastroparesis, ischemic bowel, ovarian torsion, ovarian cyst/mass, tubo-ovarian abscess, PID, STD.) X-Ray, Labs, Meds, VS Vital Signs Date Time Temp Pulse Resp B/P (MAP) Pulse Ox O2 Delivery O2 Flow Rate FiO2 05/29/25 16:16 97.8 77 16 118/59 (78) 98 97.8 05/29/25 16:15 77 16 118/59 05/29/25 14:45 77 16 96 Room Air 05/29/25 14:45 98.2 77 16 131/61 (84) 96 98.2 05/29/25 13:12 98.6 84 18 136/76 (96) 96 98.6 05/29/25 12:30 91 Lab Test 05/29/25 15:59 05/29/25 13:42 05/29/25 13:05 05/29/25 12:57 Range/Units Troponin I High Sensitivity 15 13 14 </=34 ng/L POC Glucose 92 70-106 mg/dl Sodium Level 140 136-145 mmol/L Potassium Level 3.4 L 3.5-5.1 mmol/L Chloride Level 103 98-107 mmol/L Carbon Dioxide Level 31 20-31 mmol/L Anion Gap 6 5-15 Blood Urea Nitrogen 13 9-23 mg/dL Creatinine 0.44 L 0.550-1.02 mg/dL Glomerular Filtration Rate Calc 113 >90 mL/min BUN/Creatinine Ratio 29.5 H 10.0-20.0 Serum Glucose 110 H 74-106 mg/dL Lactic Acid Level 1.9 0.4-2.0 mmol/L Calcium Level 7.4 L 8.7-10.4 mg/dL Magnesium Level 1.9 1.6-2.6 mg/dL Iron Level 41 L 50-170 ug/dL Total Iron Binding Capacity 172 L 250-425 ug/dL Percent Iron Saturation 23.8 15-50 % Total Bilirubin 0.6 0.2-1.0 mg/dL Aspartate Amino Transferase (AST) 56 H 13-40 U/L Alanine Aminotransferase (ALT) 56 H 7-40 U/L Alkaline Phosphatase 200 H 46-116 U/L Total Protein 5.1 L 5.7-8.2 g/dL Albumin 2.5 L 3.2-4.8 g/dL Lipase 17 12-53 U/L Test 05/29/25 12:55 Range/Units White Blood Count 4.0 L 4.4-10.8 10^3/uL Red Blood Count 2.82 L 4.0-5.20 10^6/uL Hemoglobin 8.9 L 12.2-16.2 g/dL Hematocrit 27.5 L 36.0-46.0 % Mean Corpuscular Volume 97.7 80.0-100.0 fL Mean Corpuscular Hemoglobin 31.7 28.0-32.0 pg Mean Corpuscular Hemoglobin Concent 32.5 32.0-36.0 g/dL Red Cell Distribution Width 15.0 H 11.8-14.3 % Platelet Count 148 140-450 10^3/uL Mean Platelet Volume 10.0 6.9-10.8 fL Neutrophils (%) (Auto) 78.2 37.0-80.0 % Lymphocytes (%) (Auto) 15.3 10.0-50.0 % Monocytes (%) (Auto) 5.7 0.0-12.0 % Eosinophils (%) (Auto) 0.5 0.0-7.0 % Basophils (%) (Auto) 0.3 0.0-2.0 % Neutrophils # (Auto) 3.1 1.6-8.6 10 ^3/uL Lymphocytes # (Auto) 0.6 0.4-5.4 10 ^3/uL Monocytes # (Auto) 0.2 0-1.3 10 ^3/uL Eosinophils # (Auto) 0 0-0.8 10 ^3/uL Basophils # (Auto) 0 0-0.2 10 ^3/uL Nucleated Red Blood Cells 0.1 % [place] [address] Ph: [phone] DIAGNOSTIC IMAGING Diagnostic Imaging Report : [id number] Signed PATIENT: EDUARDO DAVENPORT CACCT: [id number] UNIT: [id number] : 1970 LOC: ER ROOM / BED: / AGE / SEX: 54 / F ADM STATUS: REG ER SERVICE 1231 ORDERING PHYSICIAN: ELMA WERNER DO PROCEDURE(s): ABPL - CT AB PEL WO CON-NO ORAL OR IV REASON: abd pain ORDER NUMBER(s): [id number], ACCESSION NUMBER(s): [id number] Exam: CT CT AB PEL WO CON-NO ORAL OR IV History: abd pain Comparison Study: CT CT AB PEL WO CON-NO ORAL OR IV on DOS: 04/04/24 TECHNIQUE: Multidetector CT of the abdomen and pelvis without IV contrast. Axial, coronal and sagittal multiplanar reformats were obtained from the axial data set by the technologist. Radiation Dose Information: CT Dose: CTDI volume is 8.73 mGy. Dose-length product is 463.39 mGy*cm FINDINGS: Bibasilar atelectasis. Partially visualized heart is unremarkable. Moderate atrophy of the pancreas with trace ascites/mesenteric edema limiting evaluation for peripancreatic edema. Adrenal glands are unremarkable. Hepatosplenomegaly with hepatic steatosis. Status post cholecystectomy. Kidneys, and ureters are unremarkable. Mild wall thickening of the mildly distended urinary bladder. Uterus and adnexa are unremarkable. Postsurgical changes of gastric bypass. Stomach is unremarkable. Segmental wall thickening of small bowel. No significant Distention of the small bowel loops. Wall thickening of the terminal ileum. Appendix is not definitely visualized. There is wall thickening of the ascending colon, transverse colon proximal descending colon, rectosigmoid and rectum. Moderate amount of fecal material within the redundant descending colon and sigmoid. Trace ascites/ mesenteric edema. No evidence of intraperitoneal free air. No evidence of aortic aneurysm. No significant lymphadenopathy. [id number] body wall edema. Hemangioma within the T8 and L2 vertebral bodies.. IMPRESSION: Hepatosplenomegaly with hepatic steatosis. Diffuse mesenteric edema/trace ascites. Segmental wall thickening of small bowel and terminal ileum with wall thickening of the colon ; slightly worsened from prior imaging. Correlate for portal hypertensive enterocolopathy versus enterocolitis. Mild wall thickening of the urinary bladder which may be due to inadequate distention. Correlation urinalysis is recommended to exclude cystitis. Mild to moderate body wall edema. ATED BY: PENELOPE SALMERON DO DICTATED DATE/TIME: 05/29/25 1433 SIGNED BY: PENELOPE SALMERON DO SIGNED DATE/TIME: 05/29/25 143 CC: [place] [address] Ph: [phone] DIAGNOSTIC IMAGING Diagnostic Imaging Report : [id number] Signed PATIENT: EDUARDO DAVENPORT CACCT: [id number] UNIT: [id number] : 1970 LOC: ER ROOM / BED: / AGE / SEX: 54 / F ADM STATUS: REG ER SERVICE 1231 ORDERING PHYSICIAN: ELMA WERNER DO PROCEDURE(s): CXRP - CHEST PORTABLE REASON: weak ORDER NUMBER(s): [id number], ACCESSION NUMBER(s): [id number] CHEST RADIOGRAPH Indication: weak Technique: Single frontal view of the chest was obtained COMPARISON: XY CHEST PORTABLE on DOS: 05/09/25, XY CHEST PORTABLE on DOS: 10/22/24, XY CHEST PORTABLE on DOS: 04/04/24, CXRP on DOS: 06/29/22, CHEST PORTABLE on DOS: 06/29/22 FINDINGS: Lines and Tubes: None Lungs: Clear Pleura: No effusion. No pneumothorax. Cardiomediastinal contours: Unremarkable Bones: Unremarkable IMPRESSION: 1. No acute disease. ATED BY: KRISHAN ANDRADE MD DICTATED DATE/TIME: 05/29/251399 SIGNED BY: KRISHAN ANDRADE MD SIGNED DATE/TIME: 05/29/251399 CC: Images Reviewed?: Images reviewed and evaluated by me Time of 1ST Reevaluation: 13:43 Reevaluation 1ST: Unchanged Patient Education/Counseling: Diagnosis, Treatment Family Education/Counseling: No Family Present Comments MDM: patient presented with the above HPI.-generalized weakness/abdominal pain-----workup was initiated. patient was found with the above mentioned diagnosis. the following medications were ordered: please refer to order lists of meds and tests obtained by myself Dr. Werner. Patient ED course and VS have been stabilized. Patient has been reassessed in the ED and remained in a stable condition. Patient has been observed in the ED adequate length of time to insure improvement/stability. Escalation of care considered: Consideration of escalation to observation or admission Patient was ADMITTED to the medicine team for further evaluation and treatment of their presentation. All the reports of any imaging studies that were ordered by myself were reviewed by myself. Departure 1 Departure Time of Disposition: 13:33 Impression: Primary Impression: Failure to thrive Additional Impressions: Generalized weakness Anemia Hypoalbuminemia Abnormal finding on CT scan Disposition: ADMITTED INPATIENT Admit to: [facility] Condition: Guarded Discharged With: Self Critical Care Note Critical Care Time?: No I personally scribed for ELMA WERNER DO ([email or web address]) on 05/29/25 at 12:46. Electronically submitted by Adrien Iyer ([email or web address]). I personally scribed for ELMA WERNER DO ([email or web address]) on 05/29/25 at 14:36. Electronically submitted by Adrien Iyer ([email or web address]). I personally scribed for ELMA WERNER DO ([email or web address]) on 05/29/25 at 15:07. Electronically submitted by Adrien Iyer ([email or web address]). ELMA WERNER DO May 29, 2025 12:46
[2025-05-29 13:24] LABS: Hematocrit 27.5 % (36.0-46.0); Hemoglobin 8.9 g/dL (12.2-16.2); Mean Corpuscular Hemoglobin 31.7 pg (28.0-32.0); Mean Corpuscular Volume 97.7 fL (80.0-100.0); Nucleated Red Blood Cells % 0.1 %
[2025-05-29 13:37] LABS: Anion Gap 6 (5-15); BUN/Creatinine Ratio 29.5 (10.0-20.0); Blood Urea Nitrogen 13 mg/dL (9-23); Carbon Dioxide 31 mmol/L (20-31); Chloride 103 mmol/L (98-107); Lipase 17 U/L (12-53); Magnesium 1.9 mg/dL (1.6-2.6); Sodium 140 mmol/L (136-145)
[2025-05-29] MEDS: SODIUM CHLORIDE 0.9% 1,000 ML IV ONE (13:37)
[2025-05-29 13:38] LABS: Bilirubin, Total 0.6 mg/dL (0.2-1.0)
[2025-05-29 13:42] LABS: Alanine Aminotransferase 56 U/L (7-40); Albumin 2.5 g/dL (3.2-4.8); Alkaline Phosphatase 200 U/L (46-116); Calcium 7.4 mg/dL (8.7-10.4); Glucose 110 mg/dL (74-106); Potassium 3.4 mmol/L (3.5-5.1); Total Protein 5.1 g/dL (5.7-8.2)
--- NOTE | 2025-05-29 14:02 | DVH ---
CHEST RADIOGRAPH Indication: weak Technique: Single frontal view of the chest was obtained COMPARISON: XY CHEST PORTABLE on DOS: 05/09/25, XY CHEST PORTABLE on DOS: 10/22/24, XY CHEST PORTABLE o n DOS: 04/04/24, CXRP on DOS: 06/29/22, CHEST PORTABLE on DOS: 06/29/22 FINDINGS: Lines and Tubes: None Lungs: Clear Pleura: No effusion. No pneumothorax. Cardiomediastinal contours: Unremarkable Bones: Unremarkable IMPRESSION: 1. No acute disease.
--- NOTE | 2025-05-29 14:35 | DVH ---
Exam: CT CT AB PEL WO CON-NO ORAL OR IV History: abd pain Comparison Study: CT CT AB PEL WO CON-NO ORAL OR IV on DOS: 04/04/24 TECHNIQUE: Multidetector CT of the abdomen and pelvis without IV contrast. Axial, coronal and sagitt al multiplanar reformats were obtained from the axial data set by the technologist. Radiation Dose Information: CT Dose: CTDI volume is 8.73 mGy. Dose-length product is 463.39 mGy*cm FINDINGS: Bibasilar atelectasis. Partially visualized heart is unremarkable. Moderate atrophy of the pancreas with trace ascites/mesenteric edema limiting evaluation for peripanc reatic edema. Adrenal glands are unremarkable. Hepatosplenomegaly with hepatic steatosis. Status post cholecystectomy. Kidneys, and ureters are unremarkable. Mild wall thickening of the mildly distended urinary bladder. Uterus and adnexa are unremarkable. Postsurgical changes of gastric bypass. Stomach is unremarkable. Segmental wall thickening of small b owel. No significant Distention of the small bowel loops. Wall thickening of the terminal ileum. Appe ndix is not definitely visualized. There is wall thickening of the ascending colon, transverse colon proximal descending colon, rectosigmoid and rectum. Moderate amount of fecal material within the red undant descending colon and sigmoid. Trace ascites/ mesenteric edema. No evidence of intraperitoneal free air. No evidence of aortic aneurysm. No significant lymphadenopathy. Kcwo-[id number] body wall edema. Hemangioma within the T8 and L2 vertebral bodies.. IMPRESSION: Hepatosplenomegaly with hepatic steatosis. Diffuse mesenteric edema/trace ascites. Segmental wall thickening of small bowel and terminal ileum with wall thickening of the colon ; sligh tly worsened from prior imaging. Correlate for portal hypertensive enterocolopathy versus enterocolit is. Mild wall thickening of the urinary bladder which may be due to inadequate distention. Correlation u rinalysis is recommended to exclude cystitis. Mild to moderate body wall edema.
[2025-05-29] MEDS: ONDANSETRON HCL 4 MG/2 ML VIAL IV ONE (16:14)
[2025-05-29] MEDS: MORPHINE SULFATE INJ 2 MG/ml SYRG IV ONE (16:15)
[2025-05-29 16:16] VITALS: BP 118/59; PULSE 77; RESP 16; TEMP 97.8; O2SAT 98
[2025-05-29] MEDS ORDERED: MORPHINE SULFATE INJ 2 MG/ml SYRG IV PRN (16:30)
[2025-05-29] MEDS ORDERED: ONDANSETRON HCL 4 MG/2 ML VIAL IV PRN (16:30)
[2025-05-29 17:03] LABS: Iron 41.0 ug/dL (50-170); Total Iron Binding Capacity 172.0 ug/dL (250-425)
--- NOTE | 2025-05-29 17:51 | DVHHP2 ---
History of Present Illness Reason for Visit: Abdominal pain History of Present Illness 54-year-old female presents for evaluation of abdominal pain. Patient reports having abdominal pain going on for years. She states that over the past three days she has had increased fatigue with really poor appetite and generalized weakness. Reports having nausea without emesis. Past Medical History Skin cancer, UTIs Past Surgical History Gastric bypass Family History Noncontributory Smoke: No ALCOHOL: none Drugs: None Lives: with Family Review of Systems Review of Systems Review of systems are currently negative otherwise addressed in HPI. Allergies: Coded Allergies: Acetaminophen (Verified Allergy, Unknown, 10/24/15) Sulfa Antibiotics (Verified Allergy, Unknown, 10/24/15) Uncoded Allergies: BLOOD THINNERS (Allergy, Unknown, 04/04/24) Medications Current Medications Medications Dose Ordered Sig/Tamar Route Start Time Stop Time Status Last Admin Dose Admin Metronidazole 100 ml @ 100 mls/hr Q8HR IV 05/29/25 22:00 Ondansetron HCl 4 mg Q4HP PRN IV 05/29/25 16:30 Morphine Sulfate 2 mg Q4HPRN PRN IV 05/29/25 16:30 Exam Vital Signs Vital Signs Date Time Temp Pulse Resp B/P (MAP) Pulse Ox O2 Delivery O2 Flow Rate FiO2 05/29/25 16:16 97.8 77 16 118/59 (78) 98 97.8 05/29/25 14:45 Room Air Exam Gen: 54-year-old female in mild distress. Skin: Warm, dry, normal color and texture, no rash. HEENT: Normocephalic atraumatic, mucous membranes moist and pink. Neck: Cervical and supraclavicular nodes normal without enlargement, trachea is midline, thyroid gland is normal without masses. Pulmonary: Clear to auscultation and percussion bilaterally. Cardiac: Regular rate and rhythm. No murmur Abdomen: Soft, lower abdominal pain, nondistended, bowel sounds present all 4 quadrants, no guarding, no rigidity, no organomegaly. Extremities: No cyanosis, clubbing, no edema Neuro: Cranial nerves II through XII grossly intact, normal affect and speech, no focal motor deficits. Labs/Xrays ORDERING PHYSICIAN: ELMA WERNER DO PROCEDURE(s): ABPL - CT AB PEL WO CON-NO ORAL OR IV REASON: abd pain ORDER NUMBER(s): [id number], ACCESSION NUMBER(s): [id number] Exam: CT CT AB PEL WO CON-NO ORAL OR IV History: abd pain Comparison Study: CT CT AB PEL WO CON-NO ORAL OR IV on DOS: 04/04/24 TECHNIQUE: Multidetector CT of the abdomen and pelvis without IV contrast. Axial, coronal and sagittal multiplanar reformats were obtained from the axial data set by the technologist. Radiation Dose Information: CT Dose: CTDI volume is 8.73 mGy. Dose-length product is 463.39 mGy*cm FINDINGS: Bibasilar atelectasis. Partially visualized heart is unremarkable. Moderate atrophy of the pancreas with trace ascites/mesenteric edema limiting evaluation for peripancreatic edema. Adrenal glands are unremarkable. Hepatosplenomegaly with hepatic steatosis. Status post cholecystectomy. Kidneys, and ureters are unremarkable. Mild wall thickening of the mildly distended urinary bladder. Uterus and adnexa are unremarkable. Postsurgical changes of gastric bypass. Stomach is unremarkable. Segmental wall thickening of small bowel. No significant Distention of the small bowel loops. Wall thickening of the terminal ileum. Appendix is not definitely visualized. There is wall thickening of the ascending colon, transverse colon proximal descending colon, rectosigmoid and rectum. Moderate amount of fecal material within the redundant descending colon and sigmoid. Trace ascites/ mesenteric edema. No evidence of intraperitoneal free air. No evidence of aortic aneurysm. No significant lymphadenopathy. Xyqf-of-omaefzhy body wall edema. Hemangioma within the T8 and L2 vertebral bodies.. IMPRESSION: Hepatosplenomegaly with hepatic steatosis. Diffuse mesenteric edema/trace ascites. Segmental wall thickening of small bowel and terminal ileum with wall thickening of the colon ; slightly worsened from prior imaging. Correlate for portal hypertensive enterocolopathy versus enterocolitis. Mild wall thickening of the urinary bladder which may be due to inadequate distention. Correlation urinalysis is recommended to exclude cystitis. Mild to moderate body wall edema. Labs Test 05/29/25 15:59 05/29/25 13:05 05/29/25 12:57 05/29/25 12:55 Range/Units Troponin I High Sensitivity 15 </=34 ng/L POC Glucose 92 70-106 mg/dl Sodium Level 140 136-145 mmol/L Potassium Level 3.4 L 3.5-5.1 mmol/L Chloride Level 103 98-107 mmol/L Carbon Dioxide Level 31 20-31 mmol/L Anion Gap 6 5-15 Blood Urea Nitrogen 13 9-23 mg/dL Creatinine 0.44 L 0.550-1.02 mg/dL Glomerular Filtration Rate Calc 113 >90 mL/min BUN/Creatinine Ratio 29.5 H 10.0-20.0 Serum Glucose 110 H 74-106 mg/dL Lactic Acid Level 1.9 0.4-2.0 mmol/L Calcium Level 7.4 L 8.7-10.4 mg/dL Magnesium Level 1.9 1.6-2.6 mg/dL Iron Level 41 L 50-170 ug/dL Total Iron Binding Capacity 172 L 250-425 ug/dL Percent Iron Saturation 23.8 15-50 % Total Bilirubin 0.6 0.2-1.0 mg/dL Aspartate Amino Transferase (AST) 56 H 13-40 U/L Alanine Aminotransferase (ALT) 56 H 7-40 U/L Alkaline Phosphatase 200 H 46-116 U/L Total Protein 5.1 L 5.7-8.2 g/dL Albumin 2.5 L 3.2-4.8 g/dL Lipase 17 12-53 U/L White Blood Count 4.0 L 4.4-10.8 10^3/uL Red Blood Count 2.82 L 4.0-5.20 10^6/uL Hemoglobin 8.9 L 12.2-16.2 g/dL Hematocrit 27.5 L 36.0-46.0 % Mean Corpuscular Volume 97.7 80.0-100.0 fL Mean Corpuscular Hemoglobin 31.7 28.0-32.0 pg Mean Corpuscular Hemoglobin Concent 32.5 32.0-36.0 g/dL Red Cell Distribution Width 15.0 H 11.8-14.3 % Platelet Count 148 140-450 10^3/uL Mean Platelet Volume 10.0 6.9-10.8 fL Neutrophils (%) (Auto) 78.2 37.0-80.0 % Lymphocytes (%) (Auto) 15.3 10.0-50.0 % Monocytes (%) (Auto) 5.7 0.0-12.0 % Eosinophils (%) (Auto) 0.5 0.0-7.0 % Basophils (%) (Auto) 0.3 0.0-2.0 % Neutrophils # (Auto) 3.1 1.6-8.6 10 ^3/uL Lymphocytes # (Auto) 0.6 0.4-5.4 10 ^3/uL Monocytes # (Auto) 0.2 0-1.3 10 ^3/uL Eosinophils # (Auto) 0 0-0.8 10 ^3/uL Basophils # (Auto) 0 0-0.2 10 ^3/uL Nucleated Red Blood Cells 0.1 % SEPSIS Sepsis Screen Date sepsis recognized/suspect: May 29, 2025 Time Sepsis recognized/suspect: 1229 Recent Procedure: No On Antibiotic Therapy: No Respiratory Rate >20: No Heart Rate >90: No Temp<36 C (96.8 F) or >38.3 C: No SBP <90 or MAP <65 mmHG: No New Acute Mental Status Change: No Is the patient on CPAP, BIPAP,: No Physician Orders Electrocardigram (05/29/25 12:34) Cleaner Housekeeping (05/29/25 ) Urinalysis (05/29/25 12:31) Chest Portable (05/29/25 12:31) Ct Ab Pel Wo Con-No Oral Or Iv (05/29/25 12:31) Metronidazole 500mg/100ml (Flagyl 500mg/ (05/29/25 22:00) Stool Occult Blood (05/29/25 16:19) * Gi Dvh Professor Of Chemistry (05/29/25 16:19) Admit (05/29/25 16:19) Ondansetron Hcl (Zofran) (05/29/25 16:30) Complete Blood Count (05/30/25 04:00) Comprehensive Metabolic Panel (05/30/25 04:00) Condition: Stable (05/29/25 16:19) Clear Liq Diet (05/29/25 Dinner) Bedrest With Bathroom Privileg (05/29/25 16:19) Morphine Sulfate Injection (05/29/25 16:30) Vital Signs Date Time Temp Pulse Resp B/P (MAP) Pulse Ox O2 Delivery O2 Flow Rate FiO2 05/29/25 16:16 97.8 77 16 118/59 (78) 98 97.8 05/29/25 16:15 77 16 118/59 05/29/25 14:45 77 16 96 Room Air 05/29/25 14:45 98.2 77 16 131/61 (84) 96 98.2 05/29/25 13:12 98.6 84 18 136/76 (96) 96 98.6 05/29/25 12:30 91 Laboratory Tests Test 05/29/25 12:55 05/29/25 12:57 White Blood Count 4.0 10^3/uL (4.4-10.8) L Lactic Acid Level 1.9 mmol/L (0.4-2.0) Medications Medications Dose Ordered Sig/Tamar Route Start Time Stop Time Status Last Admin Dose Admin Morphine Sulfate 2 mg ONCE ONCE IV 05/29/25 16:00 05/29/25 16:01 DC 05/29/25 16:15 2 MG Ondansetron HCl 4 mg ONCE ONCE IV 05/29/25 16:00 05/29/25 16:01 DC 05/29/25 16:14 4 MG Sodium Chloride 1,000 ml @ 1,000 mls/hr Q1H ONCE IV 05/29/25 12:45 05/29/25 13:44 DC 05/29/25 13:37 1,000 MLS/HR Assessment/Plan Assessment/Plan Assessment Acute on chronic abdominal pain Internal colitis Transaminitis Mild anemia Electrolyte imbalance Plan Admit the patient to [facility] to the hospitalist Patricia Replete electrolytes UA pending GI consultation Continue treatment per orders. Plan discussed with: Patient My Orders Orders - AGATA THOMSON AGACN Procedure Category Date Status Time Metronidazole PHA 05/29/25 In Process 500mg/100ml (Flagyl 22:00 Stool Occult Blood LAB 05/29/25 Logged 16:19 * Gi D[facility] Professor Of Chemistry CONS 05/29/25 Transmitted 16:19 Admit ADMIT 05/29/25 Transmitted 16:19 Ondansetron Hcl PHA 05/29/25 In Process (Zofran) 16:30 Complete Blood Count LAB 05/30/25 Verified 04:00 Comprehensive LAB 05/30/25 Verified Metabolic Panel 04:00 Condition: Stable RAINE 05/29/25 In Process 16:19 Clear Liq Diet DIET 05/29/25 Transmitted Dinner Bedrest With Bathroom RAINE 05/29/25 In Process Privileg 16:19 Morphine Sulfate PHA 05/29/25 In Process Injection 16:30 Date of Service: May 29, 2025 Billing Provider: AGATA THOMSON Common Visit Codes: [id number] INP/OBS CARE (MOD) AGATA THOMSON May 29, 2025 17:51
--- NOTE | 2025-05-30 07:17 | ECG ---
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
== END 2025-05-29 17:40 | disposition left against medical advice (07) | DRG 249 ==
LOC: EDBD 12:30 → ER 12:30 → OVERFLOW 16:19 → UNDODISIN 17:40
PROVIDERS: ADMIT Nurse Practitioner; ATTEND Nurse Practitioner
DX: K52.9 Noninfective gastroenteritis and colitis, unspecified (principal); E88.09 Other disorders of plasma-protein metabolism, not elsewhere classified; E87.8 Other disorders of electrolyte and fluid balance, not elsewhere classified; R62.7 Adult failure to thrive; D64.9 Anemia, unspecified; Z68.25 Body mass index [BMI] 25.0-25.9, adult; G89.29 Other chronic pain; R74.01 Elevation of levels of liver transaminase levels; Z98.84 Bariatric surgery status; Z85.828 Personal history of other malignant neoplasm of skin; Z88.6 Allergy status to analgesic agent; Z53.29 Procedure and treatment not carried out because of patient's decision for other reasons
CPT/HCPCS: 36415; 71045; 74176; 80053; 82962; 83540; 83550; 83605; 83690; 83735; 84484; 85025; 93005; 96361; 96374; 96375; G0378; J2405

== ENCOUNTER 2025-06-10 13:30 | Inpatient (IN) | payer MEDICAID ==
[~2025-06-10] VITALS: Ht 160 cm; Wt 76.9 kg
--- NOTE | 2025-06-10 14:15 | ED.PDOC ---
History of Present Illness HPI Comments 54-year-old female presents with a chief complaint of abdominal pain x onset yesterday with associated nausea. Patient states that her pain is localized to her diffuse abdomen, nonradiating, describes as sharp, and rates her pain a 10/10. Patient reports that "my doctor told me to go to the ER to be admitted, but she doesn't have a plan for me". Patient denies any actual vomiting or diarrhea. Chief Complaint: Abdominal Pain Time Seen by MD: 14:02 Primary Care Provider: unknown Reviewed Notes: Medications, Allergies Allergies: Coded Allergies: Acetaminophen (Verified Allergy, Unknown, 10/24/15) Sulfa Antibiotics (Verified Allergy, Unknown, 10/24/15) Uncoded Allergies: BLOOD THINNERS (Allergy, Unknown, 04/04/24) Home Meds Active Scripts Amoxicillin & Pot Clavulanate (AUGMENTIN TABLET) 875 Mg Tb, 875 MG PO BID for 5 Days, #10 TAB Prov:SELVIN MARIE MD 05/11/25 Reported Medications Ondansetron HCl (Ondansetron Hydrochloride) 8 Mg Tab, 8 MG PO Q6HP PRN for NAUSEA OR VOMITING 04/05/24 Oxycodone HCl (Oxycodone Hydrochloride) 15 Mg Tab, 1 TAB PO PRN for PAIN SCALE 7 THRU 10 04/05/24 Tizanidine Hydrochloride (Tizanidine Hcl) 4 Mg Tab, 1 TAB PO BIDPRN 04/05/24 Information Source: Patient Mode of Arrival: Ambulatory Severity: Moderate Timing: Hours Duration: Since onset Prehospital treatment: None Past Medical History PAST MEDICAL HISTORY: Anemia, Depression Surgical History: Appendectomy, BTL BED MAKER History: No Pertinent BED MAKER History Family History Family History: Reviewed,noncontributory to illness Social History Smoker: Non-Smoker Alcohol: Denies ETOH Use Drugs: Denies Drug Use Lives In: Home Constitutional: denies: chills, diaphoresis, fatigue, fever, malaise, sweats, weakness, others EENTM: denies: blurred vision, double vision, ear bleeding, ear discharge, ear drainage, ear pain, ear ringing, eye pain, eye redness, hearing loss, mouth pain, mouth swelling, nasal discharge, nose bleeding, nose congestion, nose pain, photophobia, tearing, throat pain, throat swelling, voice changes, others Respiratory: denies: cough, hemoptysis, orthopnea, SOB at rest, shortness of b reath, SOB with excertion, stridor, wheezing, others Cardiovascular: denies: chest pain, dizzy spells, diaphoresis, Dyspnea on exertion, edema, irregular heart beat, left arm pain, lightheadedness, palpitations, PND, syncope, others Gastrointestinal: reports: abdominal pain, nausea; denies: abdomen distended, blood streaked bowels, constipated, diarrhea, dysphagia, difficulty swallowing, hematemesis, melena, poor appetite, poor fluid intake, rectal bleeding, rectal pain, vomiting, others Genitourinary: denies: abnormal vagina bleeding, burning, dyspareunia, dysuria, flank pain, frequency, hematuria, incontinence, pain, , vagina discharge, urgency, others Neurological: denies: dizziness, fainting, headache, left sided numbness, left sided weakness, numbness, paresthesia, pre-existing deficit, right sided numbness, right sided weakness, seizure, speech problems, tingling, tremors, weakness, others Musculoskeletal: denies: back pain, gout, joint pain, joint swelling, muscle pain, muscle stiffness, neck pain, others Integumetry: denies: bruises, change in color, change in hair/nails, dryness, laceration, lesions, lumps, rash, wounds, others Allergic/Immunocompromised: denies: Difficulty Healing, Frequent Infections, Hives, Itching, others Hematologic/Lymphatic: denies: anemia, blood clots, easy bleeding, easy bruising, swollen glands, others Endocrine: denies: excessive hunger, excessive sweating, excessive thirst, excessive urination, flushing, intolerance to cold, intolerance to heat, unexplained weight gain, unexplained weight loss, others Psychiatric: denies: anxiety, bipolar disorder, depression, hopeless, panic disorder, schizophrenia, sleepless, suicidal, others All Other Systems: Reviewed and Negative Physical Exam General Appearance: Moderate Distress, Obese HEENT: Normal ENT Inspection, Pharynx Normal, TMs Normal Neck: Full Range of Motion, Non-Tender, Normal, Normal Inspection Respiratory: Chest Non-Tender, Lungs Clear, No Accessory Muscle Use, No Respiratory Distress, Normal Breath Sounds Cardiovascular: No Edema, No JVD, No Murmur, No Gallop, Normal Peripheral Pulses, Regular Rate/Rhythm Breast Exam: Deferred Gastrointestinal: Diffuse, Distended, No Organomegaly, No Pulsatile Mass, Normal Bowel Sounds, Tenderness Genitalia: Deferred Pelvic: Deferred Rectal: Deferred Extremities: No calf tenderness, Normal capillary refill, Normal inspection, Normal range of motion, Non-tender, No pedal edema Musculoskeletal : Apperance: Normal Neurologic: Alert, dressmaker helper II-XII nml as Tested, Motor Weakness, Normal Affect, Normal Mood, No Sensory Deficits Cerebellar Function: Normal Reflexes: Normal Skin: Dry, Pallor, Warm Lymphatic: No Adenopathy Was a procedure done? Was a procedure done?: No Differential Dx Considerations may include: Intractable abdominal pain, small-bowel obstruction, generalized weakness X-Ray, Labs, Meds, VS Vital Signs Date Time Temp Pulse Resp B/P (MAP) Pulse Ox O2 Delivery O2 Flow Rate FiO2 06/10/25 17:09 65 12 130/68 06/10/25 17:00 65 19 133/68 (89) 96 06/10/25 16:39 74 14 130/65 06/10/25 16:00 65 06/10/25 16:00 63 16 130/65 (86) 96 06/10/25 15:30 60 12 124/63 (83) 96 06/10/25 15:20 60 12 124/63 06/10/25 15:00 60 12 124/63 (83) 92 06/10/25 14:50 66 14 118/66 06/10/25 14:33 62 17 92 Nasal Cannula* 2 28 06/10/25 14:30 97.7 62 17 104/54 (71) 92 97.7 06/10/25 14:15 66 14 118/66 (83) 06/10/25 14:00 97.7 60 16 104/54 (71) 92 97.7 06/10/25 13:48 98.7 70 22 108/68 (81) 95 98.7 Lab Test 06/10/25 14:45 Range/Units White Blood Count 6.5 4.4-10.8 10^3/uL Red Blood Count 3.26 L 4.0-5.20 10^6/uL Hemoglobin 10.3 L 12.2-16.2 g/dL Hematocrit 31.8 L 36.0-46.0 % Mean Corpuscular Volume 97.4 80.0-100.0 fL Mean Corpuscular Hemoglobin 31.5 28.0-32.0 pg Mean Corpuscular Hemoglobin Concent 32.4 32.0-36.0 g/dL Red Cell Distribution Width 14.2 11.8-14.3 % Platelet Count 182 140-450 10^3/uL Mean Platelet Volume 9.9 6.9-10.8 fL Neutrophils (%) (Auto) 87.7 H 37.0-80.0 % Lymphocytes (%) (Auto) 7.5 L 10.0-50.0 % Monocytes (%) (Auto) 4.6 0.0-12.0 % Eosinophils (%) (Auto) 0.0 0.0-7.0 % Basophils (%) (Auto) 0.2 0.0-2.0 % Neutrophils # (Auto) 5.7 1.6-8.6 10 ^3/uL Lymphocytes # (Auto) 0.5 0.4-5.4 10 ^3/uL Monocytes # (Auto) 0.3 0-1.3 10 ^3/uL Eosinophils # (Auto) 0 0-0.8 10 ^3/uL Basophils # (Auto) 0 0-0.2 10 ^3/uL Nucleated Red Blood Cells 0.0 % Sodium Level 141 136-145 mmol/L Potassium Level 3.9 3.5-5.1 mmol/L Chloride Level 108 H 98-107 mmol/L Carbon Dioxide Level 27 20-31 mmol/L Anion Gap 6 5-15 Blood Urea Nitrogen 8 L 9-23 mg/dL Creatinine 0.44 L 0.550-1.02 mg/dL Glomerular Filtration Rate Calc 113 >90 mL/min BUN/Creatinine Ratio 18.2 10.0-20.0 Serum Glucose 125 H 74-106 mg/dL Hemoglobin A1c < 3.8 <5.7 % A1C Calcium Level 7.6 L 8.7-10.4 mg/dL Total Bilirubin 0.6 0.2-1.0 mg/dL Aspartate Amino Transferase (AST) 43 H 13-40 U/L Alanine Aminotransferase (ALT) 51 H 7-40 U/L Alkaline Phosphatase 199 H 46-116 U/L Total Protein 5.3 L 5.7-8.2 g/dL Albumin 2.7 L 3.2-4.8 g/dL Lipase 19 12-53 U/L Current Medications Medications (Trade) Dose Ordered Sig/Tamar Route Start Time Stop Time Status Last Admin Ondansetron HCl (Zofran) 4 mg ONCE ONCE IV 06/10/25 14:15 06/10/25 14:37 DC 06/10/25 14:53 Morphine Sulfate 4 mg ONCE ONCE IV 06/10/25 14:15 06/10/25 14:37 DC 06/10/25 14:50 Calcium Gluconate/ Sodium Chloride 50 ml @ 100 mls/hr ONCE ONCE IV 06/10/25 16:15 06/10/25 16:44 DC 06/10/25 16:40 Albumin Human 100 ml @ 100 mls/hr ONCE ONCE IV 06/10/25 16:15 06/10/25 17:14 DC 06/10/25 16:57 Pantoprazole Sodium (Protonix) 40 mg ONCE ONCE IV 06/10/25 16:15 06/10/25 16:24 DC 06/10/25 16:47 Sodium Chloride 1,000 ml @ 60 mls/hr [id number] IV 06/10/25 16:15 06/10/25 17:30 Morphine Sulfate 2 mg Q4HPRN PRN IV 06/10/25 16:15 06/10/25 16:39 Ketorolac Tromethamine (Toradol Injection) 15 mg ONCE ONCE IV 06/10/25 17:15 06/10/25 17:16 DC 06/10/25 17:33 The chest x-ray does not show any free air and no sign of any infiltrates The CAT scan of the abdomen and pelvis showed: IMPRESSION: Hepatosplenomegaly with hepatic steatosis. Diffuse mesenteric edema/trace ascites. Diffusely dilated loops of small bowel without definite transition point noted. Findings concerning for small bowel obstruction. Mild wall thickening of the urinary bladder which may be due to inadequate distention. Correlation urinalysis is recommended to exclude cystitis. Mild to moderate body wall edema. The patient was given morphine 4 mg IV push for the pain The patient was given Zofran 4 mg IV push for the nausea The patient was given albumin here in the emergency department's The patient was given Protonix 40 mg IV push The patient was given morphine 2 mg IV push for the pain The patient was also given ketorolac 15 mg IV push The lipase is within normal limits The liver enzymes are also slightly elevated The CBC shows: There is mild anemia with a hemoglobin of 10.3 We did tell the patient that the patient would need an NG-tube but the patient states that she does not want an NG-tube in his refusing adamantly The patient is being admitted at this time Images Reviewed?: Images reviewed and evaluated by me Time of 1ST Reevaluation: 14:32 Reevaluation 1ST: Unchanged Time of 2ND Reevaluation: 18:08 Reevaluation 2ND: Unchanged Patient Education/Counseling: Diagnosis, Treatment, Prognosis Family Education/Counseling: No Family Present SEPSIS Sepsis Screen Date sepsis recognized/suspect: Jun 10, 2025 Time Sepsis recognized/suspect: 1347 Recent Procedure: No On Antibiotic Therapy: No Respiratory Rate >20: Yes Heart Rate >90: No Temp<36 C (96.8 F) or >38.3 C: No SBP <90 or MAP <65 mmHG: No New Acute Mental Status Change: No Is the patient on CPAP, BIPAP,: No Physician Orders Urinalysis (06/10/25 14:07) Ct Ab Pel Wo Con-No Oral Or Iv (06/10/25 14:07) Heplock Iv (06/10/25 14:07) Fire Safety Director (06/10/25 14:11) Blood Pressure (06/10/25 14:11) Pulse Oximetry (06/10/25 14:11) Ngt/Ogt (06/10/25 ) * Surgical Consult (06/10/25 ) Pantoprazole (Protonix) (06/11/25 10:00) Allergies (06/10/25 16:01) Code Status (06/10/25 16:01) Sodium Chloride 0.9% (06/10/25 16:15) Oxygen Per Hour (06/10/25 16:01) Ondansetron Hcl (Zofran) (06/10/25 16:15) Complete Blood Count (06/11/25 04:00) Comprehensive Metabolic Panel (06/11/25 04:00) Npo (Nothing By Mouth) Diet (06/10/25 Dinner) Condition: Serious (06/10/25 16:01) Bedrest With Bathroom Privileg (06/10/25 16:01) Morphine Sulfate Injection (06/10/25 16:15) Sequential Compression Device (06/10/25 ) Ibuprofen Tablet (Motrin Tablet) (06/10/25 16:15) Small Bowel Series-W Gastrogra (06/10/25 16:32) Vital Signs Date Time Temp Pulse Resp B/P (MAP) Pulse Ox O2 Delivery O2 Flow Rate FiO2 06/10/25 17:09 65 12 130/68 06/10/25 17:00 65 19 133/68 (89) 96 06/10/25 16:39 74 14 130/65 06/10/25 16:00 65 06/10/25 16:00 63 16 130/65 (86) 96 06/10/25 15:30 60 12 124/63 (83) 96 06/10/25 15:20 60 12 124/63 06/10/25 15:00 60 12 124/63 (83) 92 06/10/25 14:50 66 14 118/66 06/10/25 14:33 62 17 92 Nasal Cannula* 2 28 06/10/25 14:30 97.7 62 17 104/54 (71) 92 97.7 06/10/25 14:15 66 14 118/66 (83) 06/10/25 14:00 97.7 60 16 104/54 (71) 92 97.7 06/10/25 13:48 98.7 70 22 108/68 (81) 95 98.7 Laboratory Tests Test 06/10/25 14:45 White Blood Count 6.5 10^3/uL (4.4-10.8) Medications Medications Dose Ordered Sig/Tamar Route Start Time Stop Time Status Last Admin Dose Admin Albumin Human 100 ml @ 100 mls/hr ONCE ONCE IV 06/10/25 16:15 06/10/25 17:14 DC 06/10/25 16:57 Calcium Gluconate/ Sodium Chloride 50 ml @ 100 mls/hr ONCE ONCE IV 06/10/25 16:15 06/10/25 16:44 DC 06/10/25 16:40 Ketorolac Tromethamine 15 mg ONCE ONCE IV 06/10/25 17:15 06/10/25 17:16 DC 06/10/25 17:33 Morphine Sulfate 2 mg Q4HPRN PRN IV 06/10/25 16:15 06/10/25 16:39 Morphine Sulfate 4 mg ONCE ONCE IV 06/10/25 14:15 06/10/25 14:37 DC 06/10/25 14:50 Ondansetron HCl 4 mg ONCE ONCE IV 06/10/25 14:15 06/10/25 14:37 DC 06/10/25 14:53 Pantoprazole Sodium 40 mg ONCE ONCE IV 06/10/25 16:15 06/10/25 16:24 DC 06/10/25 16:47 Sodium Chloride 1,000 ml @ 60 mls/hr [id number] IV 06/10/25 16:15 06/10/25 17:30 Departure 1 Departure Time of Disposition: 18:07 Impression: Primary Impression: Intractable abdominal pain Additional Impression: Small bowel obstruction Disposition: ADMITTED INPATIENT Admit to: Med Surg Condition: Fair Critical Care Note Critical Care Time?: No Stability Stability form required: Yes Unstable for transfer: ED Physician Assesment (Clinical assesment) Heart Score Heart Score: Heart Score Response (Comments) Value History N/A 0 EKG N/A 0 Age N/A 0 Risk Factors N/A 0 Troponin N/A 0 Total 0 I personally scribed for STAR NEWMAN MD ([email or web address]) on 06/10/25 at 14:15. Electronically submitted by Juan Carlos Stanley ([email or web address]). STAR NEWMAN MD Jun 10, 2025 14:15
[2025-06-10 14:33] VITALS: PULSE 62; RESP 17; O2SAT 92
[2025-06-10] MEDS: MORPHINE SULFATE 4 MG/ML SYR/VIAL IV ONE (14:50)
[2025-06-10] MEDS: ONDANSETRON HCL 4 MG/2 ML VIAL IV ONE (14:53)
[2025-06-10 15:00] LABS: Hematocrit 31.8 % (36.0-46.0); Hemoglobin 10.3 g/dL (12.2-16.2); Mean Corpuscular Hemoglobin 31.5 pg (28.0-32.0); Mean Corpuscular Volume 97.4 fL (80.0-100.0); Nucleated Red Blood Cells % 0.0 %
[2025-06-10 15:16] LABS: Anion Gap 6 (5-15); BUN/Creatinine Ratio 18.2 (10.0-20.0); Bilirubin, Total 0.6 mg/dL (0.2-1.0); Carbon Dioxide 27 mmol/L (20-31); Lipase 19 U/L (12-53); Potassium 3.9 mmol/L (3.5-5.1); Sodium 141 mmol/L (136-145)
[2025-06-10 15:19] LABS: Alanine Aminotransferase 51 U/L (7-40); Albumin 2.7 g/dL (3.2-4.8); Alkaline Phosphatase 199 U/L (46-116); Blood Urea Nitrogen 8 mg/dL (9-23); Calcium 7.6 mg/dL (8.7-10.4); Chloride 108 mmol/L (98-107); Glucose 125 mg/dL (74-106); Total Protein 5.3 g/dL (5.7-8.2)
--- NOTE | 2025-06-10 15:43 | DVH ---
Exam: CT CT AB PEL WO CON-NO ORAL OR IV History: pain Comparison Study: CT CT AB PEL WO CON-NO ORAL OR IV on DOS: 05/29/25, CT CT AB PEL WO CON-NO ORAL OR I V on DOS: 04/04/24 TECHNIQUE: Multidetector CT of the abdomen and pelvis without IV contrast. Axial, coronal and sagittal multipla john reformats were obtained from the axial data set by the technologist. Radiation Dose Information: CT Dose: CTDI volume is 8.73 mGy. Dose-length product is 463.39 mGy*cm FINDINGS: Bibasilar atelectasis. Partially visualized heart is unremarkable. Moderate atrophy of the pancreas with trace ascites/mesenteric edema limiting evaluation for peripanc reatic edema. Adrenal glands are unremarkable. Hepatosplenomegaly with hepatic steatosis. Status post cholecystectomy. Kidneys, and ureters are unremarkable. Mild wall thickening of the mildly distended urinary bladder. Uterus and adnexa are unremarkable. Postsurgical changes of gastric bypass. Stomach is unremarkable. Diffusely dilated loops of small bowel without definite transition point noted. Findings concerning for small bowel obstruction. Appendix is not definitely visualized. There is wall thickening of the ascending colon, transverse co shaheed proximal descending colon, rectosigmoid and rectum. Moderate amount of fecal material within the redundant descending colon and sigmoid. Trace ascites/ mesenteric edema. No evidence of intraperitoneal free air. No evidence of aortic aneurysm. No significant lymphadenopathy. [id number] body wall edema. Hemangioma within the T8 and L2 vertebral bodies.. IMPRESSION: Hepatosplenomegaly with hepatic steatosis. Diffuse mesenteric edema/trace ascites. Diffusely dilated loops of small bowel without definite transition point noted. Findings concerning for small bowel obstruction. Mild wall thickening of the urinary bladder which may be due to inadequate distention. Correlation u rinalysis is recommended to exclude cystitis. Mild to moderate body wall edema.
[2025-06-10] MEDS ORDERED: IBUPROFEN 600 MG TAB PO PRN (16:15)
[2025-06-10] MEDS: MORPHINE SULFATE INJ 2 MG/ml SYRG IV PRN (16:39)
[2025-06-10] MEDS: CALCIUM GLUC 1,000mg/50ml-NS 50 ML IV ONE (16:40)
[2025-06-10] MEDS: PANTOPRAZOLE 40 MG/10 ML VIAL INJ IV ONE (16:47)
[2025-06-10] MEDS: ALBUMIN 25% 100 ML IV ONE (16:57)
--- NOTE | 2025-06-10 17:21 | DVHHP2 ---
History of Present Illness Reason for Visit: Small-bowel obstruction History of Present Illness The patient is a 54-year-old female with past medical history of anemia and depression who presented to [facility] ED with complaint of intractable abdominal pain. Patient reports symptoms progressively get worse with localized diffuse abdominal pain, nonradiating, described as sharp, rating 10/10 numeric scale, associated nausea, shortness of breaths, getting worse that prompted this visit. Patient was seen and evaluated in the ED, laboratory data shows WBC 6.5, hemoglobin 10.3, hematocrit 31.8, platelets 182, sodium 141, potassium 3.9, BUN eight, creatinine 0.44, glucose 125, calcium 7.5, albumin 2.7, protein 5.3, alkaline phos 199, total bilirubin 0.6, blood pressure 124/63, heart rate 60, temperature 97.7 F, O2 saturation 96% on oxygen. Abdomen/pelvis CT revealing hepatomegaly with hepatic steatosis, diffuse mesenteric edema/trace ascites, diffusely dilated loops of small bowel without definite transition point noted, findings concerning for small bowel obstruction; mild to moderate body wall edema. Patient was given morphine sulfate 4 mg IV x1, please see medication orders section in the computer. On my assessment, patient denied chest pain, no headache, no dizziness, no abdominal pain at this moment, no diarrhea, no nausea at this moment, no vomiting, no fever, no chills. Patient was admitted for further evaluation and medical management. Past Medical History Anemia, Depression Past Surgical History Appendectomy, BTL Family History Reviewed, noncontributory to the management of this case. Past Social History The patient lives at home, denies smoking, alcohol or illicit drugs abuse. Review of Systems Constitutional: No: Fever, Chills, Sweats, Weakness, Malaise, Other Eyes: No: Pain, Vision change, Conjunctivae inflammation, Eyelid inflammation, Other, Redness ENT: No: Ear pain, Ear discharge, Nose pain, Nose discharge, Nose congestion, Mouth pain, Mouth swelling, Throat pain, Throat swelling, Other Respiratory: No: Cough, Dry, Shortness of breath, SOB with excertion, Wheezing, Hemoptysis, Pleuritic Pain, Sputum, Wheezing, Other Cardiovascular: No: Chest Pain, Palpitations, Orthopnea, Paroxysmal Noc. Dyspnea, Edema, Lt Headedness, Other Gastrointestinal: Nausea, Abdominal Pain; No: Vomiting, Diarrhea, Constipation, Melena, Hematochezia, Other Genitourinary: No Dysuria, No Frequency, No Incontinence, No Hematuria, No Retention, No Other Musculoskeletal: No: other, neck pain, shoulder pain, arm pain, back pain, hand pain, leg pain, foot pain Skin: No: Rash, Lesions, Jaundice, Bruising, Other Neurological: No: Weakness, Numbness, Incoordination, Change in speech, Confusion, Seizures, Other Allergies: Coded Allergies: Acetaminophen (Verified Allergy, Unknown, 10/24/15) Sulfa Antibiotics (Verified Allergy, Unknown, 10/24/15) Uncoded Allergies: BLOOD THINNERS (Allergy, Unknown, 04/04/24) Medications Current Medications Medications Dose Ordered Sig/Tamar Route Start Time Stop Time Status Last Admin Dose Admin Pantoprazole Sodium 40 mg DAILY IV 06/11/25 10:00 Sodium Chloride 1,000 ml @ 60 mls/hr [id number] IV 06/10/25 16:15 Ondansetron HCl 4 mg Q4HP PRN IV 06/10/25 16:15 Morphine Sulfate 2 mg Q4HPRN PRN IV 06/10/25 16:15 06/10/25 16:39 2 MG Ibuprofen 600 mg Q6HP PRN PO 06/10/25 16:15 Exam Vital Signs Vital Signs Date Time Temp Pulse Resp B/P (MAP) Pulse Ox O2 Delivery O2 Flow Rate FiO2 06/10/25 17:00 65 19 133/68 (89) 96 06/10/25 14:33 Nasal Cannula* 2 28 06/10/25 14:30 97.7 97.7 General Appearance: Alert, Oriented X3, Cooperative, No acute distress HEENT: Atraumatic, PERRLA, EOMI, Mucous membr. moist/pink Respiratory: Normal air movement Cardiovascular: Regular rate, Normal S1, Normal S2, No murmurs Abdominal: Normal bowel sounds, Soft, No tenderness, No hepatospenomegaly, No masses Extremities: No clubbing, No cyanosis, No edema, Normal pulses, No tenderness/swelling Skin: No rashes, No breakdown, No significant lesion Neuro: Normal gait, Normal speech, Strength at 5/5 X4 ext, Normal tone, Sensation intact, Cranial nerves 3-12 NL, Reflexes 2+ Psych/Mental Status: Mental status NL, Mood NL Labs/Xrays Labs Test 06/10/25 14:45 Range/Units White Blood Count 6.5 4.4-10.8 10^3/uL Red Blood Count 3.26 L 4.0-5.20 10^6/uL Hemoglobin 10.3 L 12.2-16.2 g/dL Hematocrit 31.8 L 36.0-46.0 % Mean Corpuscular Volume 97.4 80.0-100.0 fL Mean Corpuscular Hemoglobin 31.5 28.0-32.0 pg Mean Corpuscular Hemoglobin Concent 32.4 32.0-36.0 g/dL Red Cell Distribution Width 14.2 11.8-14.3 % Platelet Count 182 140-450 10^3/uL Mean Platelet Volume 9.9 6.9-10.8 fL Neutrophils (%) (Auto) 87.7 H 37.0-80.0 % Lymphocytes (%) (Auto) 7.5 L 10.0-50.0 % Monocytes (%) (Auto) 4.6 0.0-12.0 % Eosinophils (%) (Auto) 0.0 0.0-7.0 % Basophils (%) (Auto) 0.2 0.0-2.0 % Neutrophils # (Auto) 5.7 1.6-8.6 10 ^3/uL Lymphocytes # (Auto) 0.5 0.4-5.4 10 ^3/uL Monocytes # (Auto) 0.3 0-1.3 10 ^3/uL Eosinophils # (Auto) 0 0-0.8 10 ^3/uL Basophils # (Auto) 0 0-0.2 10 ^3/uL Nucleated Red Blood Cells 0.0 % Sodium Level 141 136-145 mmol/L Potassium Level 3.9 3.5-5.1 mmol/L Chloride Level 108 H 98-107 mmol/L Carbon Dioxide Level 27 20-31 mmol/L Anion Gap 6 5-15 Blood Urea Nitrogen 8 L 9-23 mg/dL Creatinine 0.44 L 0.550-1.02 mg/dL Glomerular Filtration Rate Calc 113 >90 mL/min BUN/Creatinine Ratio 18.2 10.0-20.0 Serum Glucose 125 H 74-106 mg/dL Hemoglobin A1c < 3.8 <5.7 % A1C Calcium Level 7.6 L 8.7-10.4 mg/dL Total Bilirubin 0.6 0.2-1.0 mg/dL Aspartate Amino Transferase (AST) 43 H 13-40 U/L Alanine Aminotransferase (ALT) 51 H 7-40 U/L Alkaline Phosphatase 199 H 46-116 U/L Total Protein 5.3 L 5.7-8.2 g/dL Albumin 2.7 L 3.2-4.8 g/dL Lipase 19 12-53 U/L PATIENT: EDUARDO DAVENPORT CACCT: [id number] UNIT: [id number] : 1970 LOC: ER ROOM / BED: / AGE / SEX: 54 / F ADM STATUS: REG ER SERVICE 1407 ORDERING PHYSICIAN: STAR NEWMAN MD PROCEDURE(s): ABPL - CT AB PEL WO CON-NO ORAL OR IV REASON: pain ORDER NUMBER(s): [id number], ACCESSION NUMBER(s): [id number] Exam: CT CT AB PEL WO CON-NO ORAL OR IV History: pain Comparison Study: CT CT AB PEL WO CON-NO ORAL OR IV on DOS: 05/29/25, CT CT AB PEL WO CON-NO ORAL OR IV on DOS: 04/04/24 TECHNIQUE: Multidetector CT of the abdomen and pelvis without IV contrast. Axial, coronal and sagittal multiplanar reformats were obtained from the axial data set by the technologist. Radiation Dose Information: CT Dose: CTDI volume is 8.73 mGy. Dose-length product is 463.39 mGy*cm FINDINGS: Bibasilar atelectasis. Partially visualized heart is unremarkable. Moderate atrophy of the pancreas with trace ascites/mesenteric edema limiting evaluation for peripancreatic edema. Adrenal glands are unremarkable. Hepatosp lenomegaly with hepatic steatosis. Status post cholecystectomy. Kidneys, and ureters are unremarkable. Mild wall thickening of the mildly distended urinary bladder. Uterus and adnexa are unremarkable. Postsurgical changes of gastric bypass. Stomach is unremarkable. Diffusely dilated loops of small bowel without definite transition point noted. Findings concerning for small bowel obstruction. Appendix is not definitely visualized. There is wall thickening of the ascending colon, transverse colon proximal descending colon, rectosigmoid and rectum. Moderate amount of fecal material within the redundant descending colon and sigmoid. Trace ascites/ mesenteric edema. No evidence of intraperitoneal free air. No evidence of aortic aneurysm. No significant lymphadenopathy. [id number] body wall edema. Hemangioma within the T8 and L2 vertebral bodies.. IMPRESSION: Hepatosplenomegaly with hepatic steatosis. Diffuse mesenteric edema/trace ascites. Diffusely dilated loops of small bowel without definite transition point noted. Findings concerning for small bowel obstruction. Mild wall thickening of the urinary bladder which may be due to inadequate distention. Correlation urinalysis is recommended to exclude cystitis. Mild to moderate body wall edema. ORDERING PHYSICIAN: BHARGAVI CONNELLY DNP PROCEDURE(s): CXR1 - CHEST XRAY 1 VIEW REASON: NGT PLACEMENT ORDER NUMBER(s): [id number], ACCESSION NUMBER(s): [id number] EXAM: XY CHEST XRAY 1 VIEW Indication: NGT PLACEMENT Technique: Single frontal view of the chest was obtained Comparison: XY CHEST PORTABLE on DOS: 05/29/25, XY CHEST PORTABLE on DOS: 04/21 , XY CHEST PORTABLE on DOS: 10/22/24, XY CHEST PORTABLE on DOS: 04/04/24, CXRP on DOS: 06/29/22 FINDINGS: Lines and Tubes: Enteric tube tip projects over the expected region of stomach. Lungs: Right basilar opacity. Pleura: No effusion. No pneumothorax. Cardiomediastinal contours: Unremarkable Bones: No acute osseous abnormality. IMPRESSION: Enteric tube in appropriate position. SEPSIS Sepsis Screen Date sepsis recognized/suspect: Jun 10, 2025 Time Sepsis recognized/suspect: 9 Recent Procedure: No On Antibiotic Therapy: No Respiratory Rate >20: No Heart Rate >90: No Temp<36 C (96.8 F) or >38.3 C: No SBP <90 or MAP <65 mmHG: No New Acute Mental Status Change: No Is the patient on CPAP, BIPAP,: No Physician Orders Urinalysis (06/10/25 14:07) Ct Ab Pel Wo Con-No Oral Or Iv (06/10/25 14:07) Heplock Iv (06/10/25 14:07) Elevated Work Platform Operator (06/10/25 14:11) Blood Pressure (06/10/25 14:11) Pulse Oximetry (06/10/25 14:11) Ngt/Ogt (06/10/25 ) * Surgical Consult (06/10/25 ) Pantoprazole (Protonix) (06/11/25 10:00) Allergies (06/10/25 16:01) Code Status (06/10/25 16:01) Sodium Chloride 0.9% (06/10/25 16:15) Oxygen Per Hour (06/10/25 16:01) Ondansetron Hcl (Zofran) (06/10/25 16:15) Complete Blood Count (06/11/25 04:00) Comprehensive Metabolic Panel (06/11/25 04:00) Npo (Nothing By Mouth) Diet (06/10/25 Dinner) Condition: Serious (06/10/25 16:01) Bedrest With Bathroom Privileg (06/10/25 16:01) Morphine Sulfate Injection (06/10/25 16:15) Sequential Compression Device (06/10/25 ) Ibuprofen Tablet (Motrin Tablet) (06/10/25 16:15) Small Bowel Series-W Gastrogra (06/10/25 16:32) Admit (06/10/25 17:19) Nitroglycerin Sublingual (Ntrostat Subli (06/10/25 17:30) Morphine Sulfate Injection (06/10/25 17:30) Stat Ekg For Chest Pain (06/10/25 17:19) Notify Md Of Changes From Base (06/10/25 17:19) Sales Route Driver Helper For 24 Hours (06/10/25 17:19) Emergency Dysrhythmia Protocol (06/10/25 17:19) Rhythm Strips Once Every Shift (06/10/25 17:19) Oxygen By Nasal Cannula (06/10/25 17:19) Vital Signs Date Time Temp Pulse Resp B/P (MAP) Pulse Ox O2 Delivery O2 Flow Rate FiO2 06/10/25 17:00 65 19 133/68 (89) 96 06/10/25 16:39 74 14 130/65 06/10/25 16:00 65 06/10/25 16:00 63 16 130/65 (86) 96 06/10/25 15:30 60 12 124/63 (83) 96 06/10/25 15:20 60 12 124/63 06/10/25 15:00 60 12 124/63 (83) 92 06/10/25 14:50 66 14 118/66 06/10/25 14:33 62 17 92 Nasal Cannula* 2 28 06/10/25 14:30 97.7 62 17 104/54 (71) 92 97.7 06/10/25 14:15 66 14 118/66 (83) 06/10/25 14:00 97.7 60 16 104/54 (71) 92 97.7 06/10/25 13:48 98.7 70 22 108/68 (81) 95 98.7 Laboratory Tests Test 06/10/25 14:45 White Blood Count 6.5 10^3/uL (4.4-10.8) Medications Medications Dose Ordered Sig/Tamar Route Start Time Stop Time Status Last Admin Dose Admin Albumin Human 100 ml @ 100 mls/hr ONCE ONCE IV 06/10/25 16:15 06/10/25 17:14 DC 06/10/25 16:57 100 MLS/HR Calcium Gluconate/ Sodium Chloride 50 ml @ 100 mls/hr ONCE ONCE IV 06/10/25 16:15 06/10/25 16:44 DC 06/10/25 16:40 100 MLS/HR Morphine Sulfate 2 mg Q4HPRN PRN IV 06/10/25 16:15 06/10/25 16:39 2 MG Morphine Sulfate 4 mg ONCE ONCE IV 06/10/25 14:15 06/10/25 14:37 DC 06/10/25 14:50 4 MG Ondansetron HCl 4 mg ONCE ONCE IV 06/10/25 14:15 06/10/25 14:37 DC 06/10/25 14:53 4 MG Pantoprazole Sodium 40 mg ONCE ONCE IV 06/10/25 16:15 06/10/25 16:24 DC 06/10/25 16:47 40 MG Assessment/Plan Assessment/Plan Intractable abdominal pain Electrolyte imbalance Small bowel obstruction Elevated liver enzymes Plan 1. Admit to telemetry unit 2. Breathing treatment 3. Pain control management 4. Management of fluids and electrolytes 5. Consultation for surgical team 6. Diagnostic tests abdomen/pelvis CT 7. DVT prophylaxis on SCDs 8. Repeat labs CBC, CMP in a.m. 9. Continue with current medical management 10. Treatment plan discussed with patient and RN. Patient verbalized understanding. Plan discussed with: Patient, Other (RN) My Orders Orders - BHARGAVI CONNELLY DNP Procedure Category Date Status Time * Surgical Consult CONS 06/10/25 Transmitted Pantoprazole PHA 06/11/25 In Process (Protonix) 10:00 Allergies RAINE 06/10/25 In Process 16:01 Code Status CODE 06/10/25 Transmitted 16:01 Sodium Chloride 0.9% PHA 06/10/25 In Process 16:15 Oxygen Per Hour RT 06/10/25 Transmitted 16:01 Ondansetron Hcl PHA 06/10/25 In Process (Zofran) 16:15 Complete Blood Count LAB 06/11/25 Verified 04:00 Comprehensive LAB 06/11/25 Verified Metabolic Panel 04:00 Npo (Nothing By DIET 06/10/25 Transmitted Mouth) Diet Dinner Condition: Serious RAINE 06/10/25 In Process 16:01 Bedrest With Bathroom RAINE 06/10/25 In Process Privileg 16:01 Morphine Sulfate [facility] 06/10/25 In Process Injection 16:15 Sequential RAINE 06/10/25 In Process Compression Device Ibuprofen Tablet PHA 06/10/25 In Process (Motrin Tablet) 16:15 Admit ADMIT 06/10/25 Verified 17:19 Nitroglycerin [facility] 06/10/25 Verified Sublingual (Ntrostat 17:30 Morphine Sulfate [facility] 06/10/25 Verified Injection 17:30 Stat Ekg For Chest [facility] 06/10/25 Verified Pain 17:19 Notify Md Of Changes [facility] 06/10/25 Verified From Base 17:19 Sales Route Driver Helper For [facility] 06/10/25 Verified 24 Hours 17:19 Emergency Dysrhythmia [facility] 06/10/25 Verified Protocol 17:19 Rhythm Strips Once [facility] 06/10/25 Verified Every Shift 17:19 Oxygen By Nasal RT 06/10/25 Verified Cannula 17:19 Problem List: (1) Intractable abdominal pain (2) Electrolyte imbalance (3) Elevated liver enzymes (4) Small bowel obstruction Date of Service: Jun 10, 2025 Billing Provider: BHARGAVI CONNELLY DNP Common Visit Codes: [id number] INP/OBS CARE (HIGH) BHARGAVI CONNELLY DNP Jun 10, 2025 17:21
[2025-06-10] MEDS: SODIUM CHLORIDE 0.9% 1,000 ML IV SCH (17:30)
[2025-06-10] MEDS ORDERED: MORPHINE SULFATE INJ 2 MG/ml SYRG IV PRN (17:30)
[2025-06-10] MEDS ORDERED: NITROGLYCERIN 0.4 MG SL TAB SL PRN (17:30)
[2025-06-10] MEDS: KETOROLAC TROMETH 30 MG/ML 1ML VIAL IV ONE ×2 (17:33→23:44)
--- NOTE | 2025-06-10 18:15 | DVH ---
EXAM: XY CHEST XRAY 1 VIEW Indication: NGT PLACEMENT Technique: Single frontal view of the chest was obtained Comparison: XY CHEST PORTABLE on DOS: 05/29/25, XY CHEST PORTABLE on DOS: 05/09/25, XY CHEST PORTABLE o n DOS: 10/22/24, XY CHEST PORTABLE on DOS: 04/04/24, CXRP on DOS: 06/29/22 FINDINGS: Lines and Tubes: Enteric tube tip projects over the expected region of stomach. Lungs: Right basilar opacity. Pleura: No effusion. No pneumothorax. Cardiomediastinal contours: Unremarkable Bones: No acute osseous abnormality. IMPRESSION: Enteric tube in appropriate position.
[2025-06-10 18:43] LABS: Urine Protein, UAD Negative (Negative)
[2025-06-10] MEDS: ONDANSETRON HCL 4 MG/2 ML VIAL IV PRN (20:50)
[2025-06-10 22:29] VITALS: BP 143/89; PULSE 77; RESP 16; RESP 18; TEMP 98.2; O2SAT 92; O2SAT 98
[2025-06-11] VITALS (9 sets, daily range): BP systolic 112–146; BP diastolic 58–83; PULSE 70–105; RESP 16–18; TEMP 97.9–98.5; O2SAT 96–99
[2025-06-11 07:04] LABS: Hematocrit 29.7 % (36.0-46.0); Hemoglobin 9.7 g/dL (12.2-16.2); Mean Corpuscular Hemoglobin 31.5 pg (28.0-32.0); Mean Corpuscular Volume 96.7 fL (80.0-100.0); Nucleated Red Blood Cells % 0.0 %
[2025-06-11 07:20] LABS: Anion Gap 10 (5-15); BUN/Creatinine Ratio 22.4 (10.0-20.0); Blood Urea Nitrogen 11 mg/dL (9-23); Carbon Dioxide 27 mmol/L (20-31); Chloride 106 mmol/L (98-107); Glucose 90 mg/dL (74-106); Potassium 3.6 mmol/L (3.5-5.1); Sodium 143 mmol/L (136-145)
[2025-06-11 07:21] LABS: Bilirubin, Total 0.7 mg/dL (0.2-1.0)
[2025-06-11 07:28] LABS: Alanine Aminotransferase 51 U/L (7-40); Albumin 2.5 g/dL (3.2-4.8); Alkaline Phosphatase 166 U/L (46-116); Calcium 8.1 mg/dL (8.7-10.4); Total Protein 4.8 g/dL (5.7-8.2)
[2025-06-11] MEDS ORDERED: GASTROGRAFIN 120 ML SOL ONE (08:13)
[2025-06-11] MEDS: PANTOPRAZOLE 40 MG/10 ML VIAL INJ IV SCH (09:19)
[2025-06-11 09:20] LABS: INR 1.07 (0.9-1.15); Partial Thromboplastin Time 25.5 SEC (24.5-34.5); Prothrombin Time 11.3 sec (9.3-11.8)
--- NOTE | 2025-06-11 10:03 | DVHINCON2 ---
Date of service: Jun 11, 2025 Family History: Family history: Congenital anomaly G8 MOTHER Family history: Depression (situation) G8 MOTHER G8 FATHER Family history: Glaucoma Allergies: Coded Allergies: Acetaminophen (Verified Allergy, Unknown, 10/24/15) Sulfa Antibiotics (Verified Allergy, Unknown, 10/24/15) Uncoded Allergies: BLOOD THINNERS (Allergy, Unknown, 04/04/24) Home Meds Reported Medications Ondansetron HCl (Ondansetron Hydrochloride) 8 Mg Tab, 8 MG PO Q6HP PRN for NAUSEA OR VOMITING 04/05/24 Oxycodone HCl (Oxycodone Hydrochloride) 15 Mg Tab, 1 TAB PO PRN for PAIN SCALE 7 THRU 10 04/05/24 Tizanidine Hydrochloride (Tizanidine Hcl) 4 Mg Tab, 1 TAB PO BIDPRN 04/05/24 Current Medications Current Medications Medications (Trade) Dose Ordered Sig/Tamar Route PRN Reason Start Time Stop Time Status Last Admin Pantoprazole Sodium (Protonix) 40 mg DAILY IV 06/11/25 10:00 06/11/25 09:19 Sodium Chloride 1,000 ml @ 60 mls/hr [id number] IV 06/10/25 16:15 06/10/25 17:30 Ondansetron HCl (Zofran) 4 mg Q4HP PRN IV NAUSEA / VOMITING 06/10/25 16:15 06/11/25 09:19 Morphine Sulfate 2 mg Q4HPRN PRN IV SEVERE PAIN (7-10 PAIN SCALE) 06/10/25 16:15 06/11/25 09:20 Ibuprofen (Motrin Tablet) 600 mg Q6HP PRN PO PAIN SCALE 1-3 OR TEMP>100.4 06/10/25 16:15 Nitroglycerin (Ntrostat Sublingual) 0.4 mg Q5MINP PRN SL FOR CHEST PAIN 06/10/25 17:30 Morphine Sulfate 2 mg Q30M PRN IV FOR CHEST PAIN 06/10/25 17:30 Ceftriaxone Sodium 50 ml @ 100 mls/hr DAILY@09 IV 06/11/25 09:00 Metronidazole 100 ml @ 100 mls/hr Q8HR IV 06/11/25 14:00 Vital Signs Vital Signs Date Time Temp Pulse Resp B/P (MAP) Pulse Ox O2 Delivery O2 Flow Rate FiO2 06/11/25 09:20 67 18 135/71 06/11/25 05:00 98.0 98 98.0 06/10/25 22:29 Nasal Cannula* 2 28 Labs/Diagnostic Data Labs Test 06/11/25 08:21 06/11/25 04:02 06/10/25 18:33 06/10/25 14:45 Range/Units Prothrombin Time 11.3 9.3-11.8 sec Prothrombin Time INR 1.07 0.9-1.15 Activated Partial Thromboplast Time 25.5 24.5-34.5 SEC White Blood Count 5.6 4.4-10.8 10^3/uL Red Blood Count 3.07 L 4.0-5.20 10^6/uL Hemoglobin 9.7 L 12.2-16.2 g/dL Hematocrit 29.7 L 36.0-46.0 % Mean Corpuscular Volume 96.7 80.0-100.0 fL Mean Corpuscular Hemoglobin 31.5 28.0-32.0 pg Mean Corpuscular Hemoglobin Concent 32.6 32.0-36.0 g/dL Red Cell Distribution Width 14.1 11.8-14.3 % Platelet Count 202 140-450 10^3/uL Mean Platelet Volume 10.0 6.9-10.8 fL Neutrophils (%) (Auto) 72.1 37.0-80.0 % Lymphocytes (%) (Auto) 12.1 10.0-50.0 % Monocytes (%) (Auto) 15.5 H 0.0-12.0 % Eosinophils (%) (Auto) 0.1 0.0-7.0 % Basophils (%) (Auto) 0.2 0.0-2.0 % Neutrophils # (Auto) 4.0 1.6-8.6 10 ^3/uL Lymphocytes # (Auto) 0.7 0.4-5.4 10 ^3/uL Monocytes # (Auto) 0.9 0-1.3 10 ^3/uL Eosinophils # (Auto) 0 0-0.8 10 ^3/uL Basophils # (Auto) 0 0-0.2 10 ^3/uL Nucleated Red Blood Cells 0.0 % Sodium Level 143 136-145 mmol/L Potassium Level 3.6 3.5-5.1 mmol/L Chloride Level 106 98-107 mmol/L Carbon Dioxide Level 27 20-31 mmol/L Anion Gap 10 5-15 Blood Urea Nitrogen 11 9-23 mg/dL Creatinine 0.49 L 0.550-1.02 mg/dL Glomerular Filtration Rate Calc 111 >90 mL/min BUN/Creatinine Ratio 22.4 H 10.0-20.0 Serum Glucose 90 74-106 mg/dL Calcium Level 8.1 L 8.7-10.4 mg/dL Total Bilirubin 0.7 0.2-1.0 mg/dL Aspartate Amino Transferase (AST) 69 H 13-40 U/L Alanine Aminotransferase (ALT) 51 H 7-40 U/L Alkaline Phosphatase 166 H 46-116 U/L Total Protein 4.8 L 5.7-8.2 g/dL Albumin 2.5 L 3.2-4.8 g/dL Urine Color Yellow Yellow Urine Clarity Clear Clear Urine pH 5.0 5.0-9.0 Urine Specific [place] 1.026 1.001-1.035 Urine Protein Negative Negative Urine Ketones Negative Negative Urine Blood Negative Negative /uL Urine Nitrite 2+ H Negative Urine Bilirubin Negative Negative Urine Urobilinogen Normal Negative mg/dL Urine Leukocyte Esterase 3+ Negative /uL Urine RBC 1 0 - 4 /hpf Urine Microscopic WBC 41 H 0-5 /HPF Urine Squamous Epithelial Cells Few <5 /hpf Urine Bacteria Few H None Seen /hpf Urine Mucus Few None Seen Urine Glucose Normal Normal mg/dL Hemoglobin A1c < 3.8 <5.7 % A1C Lipase 19 12-53 U/L Assessment 06/11/25 patient wound not allow me to touch her abdomen or lower the covers to visually inspect her abdomen because it is "too painful" she is also refusing the gastrografin study until the pain medications "allow her to move without her abdomen exploding" She relates a history of a multitude of operations including 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 awaiting Gastrografin study. Plan discussed with: Patient, Other ALLI KING MD Jun 11, 2025 10:03
[2025-06-11] MEDS: cefTRIAXone 1GM/50ML D5W 50 ML IV SCH (13:34)
--- NOTE | 2025-06-11 13:58 | DVH ---
Procedure: XY SMALL BOWEL SERIES-W GASTROGRA Exam Date: 06/11/2025 12:31 PM Reason for study/Clinical History: ABDOMINAL PAIN Comparison Study: None Technique: Single contrast small bowel series performed. Findings: Initial warehouse engineer view of the abdomen and pelvis appears demonstrates no acute process. Contrast is identified within the colon by 3 h. This represents a normal small bowel transit time. Small bowel loops are normal in size. Normal mucosal pattern. No evidence of small bowel obstructi on, stricture, or mucosal abnormality. The terminal ileum is well visualized and is unremarkable. IMPRESSION: Normal small bowel series. Delayed transit time. END IMPRESSION:
[2025-06-11] MEDS ORDERED: LIDOCAINE VISCOUS 2% 15ML UD MT ONE (15:30)
[2025-06-11] MEDS: KETOROLAC TROMETH 30 MG/ML 1ML VIAL IV PRN (17:08)
--- NOTE | 2025-06-11 17:14 | DVHPNRES ---
Progress Note Date Seen: Jun 11, 2025 Resident Creating Document: ANNETTE SEVERINO RESIDENT Medical Necessity Reason Pt with a Central, PICC or Fol: No Subjective Review of Systems The patient is a 54-year-old female with past medical history of anemia and depression who presented to [facility] ED with complaint of intractable abdominal pain. Patient reports symptoms progressively get worse with localized diffuse abdominal pain, nonradiating, described as sharp, rating 10/10 numeric scale, associated nausea, shortness of breaths, getting worse that prompted this visit. Abdomen/pelvis CT revealing hepatomegaly with hepatic steatosis, diffuse mesenteric edema/trace ascites, diffusely dilated loops of small bowel without definite transition point noted, findings concerning for small bowel obstruction; mild to moderate body wall edema. Patient was given morphine sulfate 4 mg IV x1, please see medication orders section in the computer. On my assessment, patient denied chest pain, no headache, no dizziness, no abdominal pain at this moment, no diarrhea, no nausea at this moment, no vomiting, no fever, no chills. Patient was admitted for further evaluation and medical management. Patient had a Martín gastric bypass 20 years ago and a hernia repair, she had partial small bowel obstruction since 4 years. Patient seen at bedside. Patient appear alert x3, in mild distress,she feels better than yesterday but still has diffuse abdominal pain, she complains of the NG tube causing dry heaves and spasms in her stomach, General Surgery was consulted and requested to remove NG tube and they cleared for removal. Surgery stated that they will not operate. Patient states that she has been hospitalized multiple times with the same complaint. For this visit she thought that the pain was so severe because she thought her bowel was perforated. Patient is passing gas, had a bowel movement, is tolerating clear liquids. Small-bowel series shows Normal small bowel series. Delayed transit time. Abdominal CT shows Hepatosplenomegaly with hepatic steatosis, Diffuse mesenteric edema/trace ascites, Diffusely dilated loops of small bowel without definite transition point noted. Findings concerning for small bowel obstruction., Mild wall thickening of the urinary bladder which may be due to inadequate distention. Correlation urinalysis is recommended to exclude cystitis, Mild to moderate body wall edema. Telemetry was discontinued. Constitutional: has weight loss, HEENT: Denies changes in vision and hearing. Respiratory: Denies shortness of breath and cough Cardiovascular: Denies chest discomfort or palpitations GI: diffuse abdominal pain : Denies dysuria and urinary frequency. Musculoskeletal: Denies myalgias and joint pain Skin: Denies rash and pruritus. Neurological: Denies dizziness, headache, vision or hearing problems Objective vital signs Vital Sign Date Time Temp Pulse Resp B/P (MAP) Pulse Ox O2 Delivery O2 Flow Rate FiO2 06/11/25 14:29 86 18 125/67 06/11/25 13:00 98.5 96 98.5 06/10/25 22:29 Nasal Cannula* 2 28 Total Intake and Output 06/10/25 06/10/25 06/11/25 15:00 23:00 07:00 Intake Total 270 ml 0 ml Balance 270 ml 0 ml medications Current Medications Medications Dose Ordered Sig/Tamar Route Start Time Stop Time Status Last Admin Dose Admin Pantoprazole Sodium 40 mg DAILY IV 06/11/25 10:00 06/11/25 09:19 40 MG Sodium Chloride 1,000 ml @ 60 mls/hr [id number] IV 06/10/25 16:15 06/10/25 17:30 60 MLS/HR Ondansetron HCl 4 mg Q4HP PRN IV 06/10/25 16:15 06/11/25 13:34 4 MG Ibuprofen 600 mg Q6HP PRN PO 06/10/25 16:15 Cancel Ceftriaxone Sodium 50 ml @ 100 mls/hr DAILY@09 IV 06/11/25 09:00 06/11/25 13:34 100 MLS/HR Metronidazole 100 ml @ 100 mls/hr Q8HR IV 06/11/25 14:00 Ketorolac Tromethamine 15 mg Q6HPRN PRN IV 06/11/25 16:00 06/16/25 15:59 Examination General: Patient alert and oriented in person, place and time. Patient following commands. HEENT: Normocephalic, atraumatic, moist mucous membranes Respiratory/pulmonary: Clear lungs bilaterally, vesicular murmurs present in almost all lung carmona, no associated crackles or wheezes. Cardiovascular: Normal heart sounds S1 and S2 with no associated murmurs Abdomen: Abdomen nondistended, Diffuse Abdominal Pain, no palpable masses. Extremities: There is no peripheral edema present at the lower extremities. Peripheral Pulses: 3+ Radial (R). 3+ Radial (L). 3+ Dorsalis pedis (R). 3+ Dorsalis pedis(L) Skin: No rashes or pruritus, there is no sacral edema present at this time. Neurological: Intact cranial nerves with no focal neurologic deficits laboratory and microbiology Laboratory Tests 06/11/25 04:02 Test 06/11/25 04:02 Range/Units Serum Glucose 90 74-106 mg/dL Problem List/Assessment/Plan Problem List/Assessment/Plan # Possible Partial SBO -CT scan shows Diffuse mesenteric edema/trace ascites.Diffusely dilated loops of small bowel without definite transition point noted. Findings concerning for small bowel obstruction. - Gastrografin shows Normal small bowel series. Delayed transit time - surgery was on board and recommended no operative treatment needed. - patient is on clear liquid diet and is tolerating. - IV NS 60 mL/hour - IV ceftriaxone 1 g daily -IV metronidazole 500 mg tid -IV Toradol 15 mg Q6 hour for pain #chronic microcytic anemia secondary to iron deficiency - hemoglobin is 9.7 # transaminitis -monitor labs # acute complicated UTI - urinalysis shows signs of UTI - pending bacterial urine culture - IV ceftriaxone 1 g daily # moderate to severe protein calorie malnutrition - history of gastric bypass surgery - albumin:2.5 PPI PPX: Protonix DVT PPX: SCD Goals of care discussed with patient for over 20 minutes: Full code Case discussed with Dr. Eugene Plan discussed with: Patient Date of Service: Jun 11, 2025 Billing Provider: YAIMA EUGENE MD Common Visit Codes: [id number] INP/OBS CARE(HIGH) ANNETTE SEVERINO RESIDENT Jun 11, 2025 17:14 YAIMA EUGENE MD Jun 17, 2025 20:06
--- NOTE | 2025-06-11 18:09 | DVHINCON2 ---
Date of service: Jun 11, 2025 Reason for Consultation small bowel obstruction History of Present Illness History Source: Patient, Notes HPI 54-year-old female presented to [facility] ED with complaint of intractable abdominal pain. Patient reports symptoms progressively got worse described as sharp, rating 10/10 numeric scale, associated with nausea, shortness of breaths, getting worse that prompted this visit. Patient lynn smiley has had many surgeons who have refused to operate on her because it is to risky " she would on the table". She refused to be examined by general surgeon and wanted pain medication before her small bowel follow through because the test will make her abdomen spasm. Home Meds Reported Medications Ondansetron HCl (Ondansetron Hydrochloride) 8 Mg Tab, 8 MG PO Q6HP PRN for NAUSEA OR VOMITING 04/05/24 Oxycodone HCl (Oxycodone Hydrochloride) 15 Mg Tab, 1 TAB PO PRN for PAIN SCALE 7 THRU 10 04/05/24 Tizanidine Hydrochloride (Tizanidine Hcl) 4 Mg Tab, 1 TAB PO BIDPRN 04/05/24 Past Medical History Cardiac: No pertinent Hx Pulmonary: No pertinent Hx Central Nervous System: No pertinent Hx GI: No pertinent Hx Hemotology/Oncology: Anemia NOS Hepatobiliary: No pertinent Hx Psychiatric: Depression Musculoskeletal: No pertinent Hx Rheumotologic: No pertinent Hx Infectious Disease: No peritnent Hx ENT: No pertinent Hx Renal/: No pertinent Hx Endocrine: No pertinent Hx Dermatology: No pertinent Hx Past Surgical History: Appendectomy, Tubal ligation Patient Family History: Family history: Congenital anomaly G8 MOTHER Family history: Depression (situation) G8 MOTHER G8 FATHER Family history: Glaucoma Smoker: No Hx (Negative) Alocohol: None Drugs: None Lives with: With family Review of Systems Constitutional: No symptom reported Ears, Nose, & Throat: No symptom reported Eyes: No symptom reported Pulmonary/Respiratory: No symptom reported Cardiovascular: No symptom reported Gastrointestinal: Nausea, Vomiting, Abdominal Pain Genitourinary: No symptom reported Musculoskeletal: No symptom reported Skin: No symptom reported Psychiatric: No symptom reported Endocrine: No symptom reported Hemotologic/Lymphatic: No symptom reported H&P Exam Vital Signs Vital Signs Date Time Temp Pulse Resp B/P (MAP) Pulse Ox O2 Delivery O2 Flow Rate FiO2 06/11/25 17:00 98.0 77 18 123/61 (81) 99 98.0 06/10/25 22:29 Nasal Cannula* 2 28 General Appeara: Well developed, Well nourished Head Exam: Normal inspection Mouth: Normal Inspection Pulmonary/Respiratory: Normal inspection Cardiovascular/Chest: Normal inspection Abdominal Exam: Other (unable to examine patient she would not allow abdomen is to painful ) Neuro/Mental St: Alert, Oriented Appearance: Appropriate appearance Eye contact/ Speech: Cooperative, Good eye contact Labs/Xrays Labs Test 06/11/25 12:18 06/11/25 08:21 06/11/25 04:02 06/10/25 18:33 Range/Units POC Glucose 83 70-106 mg/dl Prothrombin Time 11.3 9.3-11.8 sec Prothrombin Time INR 1.07 0.9-1.15 Activated Partial Thromboplast Time 25.5 24.5-34.5 SEC White Blood Count 5.6 4.4-10.8 10^3/uL Red Blood Count 3.07 L 4.0-5.20 10^6/uL Hemoglobin 9.7 L 12.2-16.2 g/dL Hematocrit 29.7 L 36.0-46.0 % Mean Corpuscular Volume 96.7 80.0-100.0 fL Mean Corpuscular Hemoglobin 31.5 28.0-32.0 pg Mean Corpuscular Hemoglobin Concent 32.6 32.0-36.0 g/dL Red Cell Distribution Width 14.1 11.8-14.3 % Platelet Count 202 140-450 10^3/uL Mean Platelet Volume 10.0 6.9-10.8 fL Neutrophils (%) (Auto) 72.1 37.0-80.0 % Lymphocytes (%) (Auto) 12.1 10.0-50.0 % Monocytes (%) (Auto) 15.5 H 0.0-12.0 % Eosinophils (%) (Auto) 0.1 0.0-7.0 % Basophils (%) (Auto) 0.2 0.0-2.0 % Neutrophils # (Auto) 4.0 1.6-8.6 10 ^3/uL Lymphocytes # (Auto) 0.7 0.4-5.4 10 ^3/uL Monocytes # (Auto) 0.9 0-1.3 10 ^3/uL Eosinophils # (Auto) 0 0-0.8 10 ^3/uL Basophils # (Auto) 0 0-0.2 10 ^3/uL Nucleated Red Blood Cells 0.0 % Sodium Level 143 136-145 mmol/L Potassium Level 3.6 3.5-5.1 mmol/L Chloride Level 106 98-107 mmol/L Carbon Dioxide Level 27 20-31 mmol/L Anion Gap 10 5-15 Blood Urea Nitrogen 11 9-23 mg/dL Creatinine 0.49 L 0.550-1.02 mg/dL Glomerular Filtration Rate Calc 111 >90 mL/min BUN/Creatinine Ratio 22.4 H 10.0-20.0 Serum Glucose 90 74-106 mg/dL Calcium Level 8.1 L 8.7-10.4 mg/dL Total Bilirubin 0.7 0.2-1.0 mg/dL Aspartate Amino Transferase (AST) 69 H 13-40 U/L Alanine Aminotransferase (ALT) 51 H 7-40 U/L Alkaline Phosphatase 166 H 46-116 U/L Total Protein 4.8 L 5.7-8.2 g/dL Albumin 2.5 L 3.2-4.8 g/dL Urine Color Yellow Yellow Urine Clarity Clear Clear Urine pH 5.0 5.0-9.0 Urine Specific [place] 1.026 1.001-1.035 Urine Protein Negative Negative Urine Ketones Negative Negative Urine Blood Negative Negative /uL Urine Nitrite 2+ H Negative Urine Bilirubin Negative Negative Urine Urobilinogen Normal Negative mg/dL Urine Leukocyte Esterase 3+ Negative /uL Urine RBC 1 0 - 4 /hpf Urine Microscopic WBC 41 H 0-5 /HPF Urine Squamous Epithelial Cells Few <5 /hpf Urine Bacteria Few H None Seen /hpf Urine Mucus Few None Seen Urine Glucose Normal Normal mg/dL Test 06/10/25 14:45 Range/Units Hemoglobin A1c < 3.8 <5.7 % A1C Lipase 19 12-53 U/L Assessment/Plan Problem List: (1) Abdominal pain Plan patient seen earlier today , complaint of abdominal pain associated with nausea and vomitting, patient states NGT causing alot of pain. Unable to examine , patient would not allow myself or Surgeon to examine her abdomen, refused small bowel follow series until she had pain medication Plan: small bowel follow through Plan discussed with: Patient, Other (Dr. Wade ) Visit Coding Surgery Date of Service if different f: Jun 11, 2025 Billing Provider: ALLI WADE MD Surgery Visit Codes: [id number] - INP CONSULT <80 MIN LUZMARIA LINDA NP Jun 11, 2025 18:09
[2025-06-11] MEDS: MORPHINE SULFATE INJ 2 MG/ml SYRG IV ONE (23:16)
[2025-06-12] VITALS (7 sets, daily range): BP systolic 114–126; BP diastolic 61–81; PULSE 64–81; RESP 17–18; TEMP 97.8–98.1; O2SAT 97–98
[2025-06-12 08:28] LABS: Anion Gap 6 (5-15); BUN/Creatinine Ratio 19.5 (10.0-20.0); Carbon Dioxide 30 mmol/L (20-31); Glucose 78 mg/dL (74-106); Sodium 145 mmol/L (136-145)
[2025-06-12 08:29] LABS: Alanine Aminotransferase 42 U/L (7-40); Albumin 2.3 g/dL (3.2-4.8); Alkaline Phosphatase 142 U/L (46-116); Blood Urea Nitrogen 8 mg/dL (9-23); Calcium 7.7 mg/dL (8.7-10.4); Chloride 109 mmol/L (98-107); Potassium 2.7 mmol/L (3.5-5.1); Total Protein 4.3 g/dL (5.7-8.2)
[2025-06-12 08:30] LABS: Bilirubin, Total 0.5 mg/dL (0.2-1.0)
[2025-06-12 10:13] LABS: Hemoglobin 8.2 g/dL (12.2-16.2)
[2025-06-12 10:18] LABS: Hematocrit 24.9 % (36.0-46.0); Mean Corpuscular Hemoglobin 32.4 pg (28.0-32.0); Mean Corpuscular Volume 98.4 fL (80.0-100.0); Nucleated Red Blood Cells % 0.1 %
--- NOTE | 2025-06-12 12:07 | DVHPN2 ---
Subjective Date Seen: Jun 12, 2025 Post op day Post op day: 0 Patient reports: No new complaints, Feels better General: Normal HNT: Normal Cardiovascular: Normal Respiratory: Normal, Chest Pain Genitourinary: Normal Musculoskeletal: Normal Objective Vitals Vital Sign Date Time Temp Pulse Resp B/P (MAP) Pulse Ox O2 Delivery O2 Flow Rate FiO2 06/12/25 08:40 97.8 64 17 126/81 (96) 98 97.8 06/12/25 08:00 Nasal Cannula* 3 32 Total Intake and Output 06/11/25 06/11/25 06/12/25 15:00 23:00 07:00 Intake Total 150 ml 180 ml 1300 ml Balance 150 ml 180 ml 1300 ml Medications Current Medications Medications Dose Ordered Sig/Tamar Route Start Time Stop Time Status Last Admin Dose Admin Pantoprazole Sodium 40 mg DAILY IV 06/11/25 10:00 06/12/25 08:46 40 MG Sodium Chloride 1,000 ml @ 60 mls/hr [id number] IV 06/10/25 16:15 06/10/25 17:30 60 MLS/HR Ondansetron HCl 4 mg Q4HP PRN IV 06/10/25 16:15 06/12/25 10:18 4 MG Ibuprofen 600 mg Q6HP PRN PO 06/10/25 16:15 Cancel Ceftriaxone Sodium 50 ml @ 100 mls/hr DAILY@09 IV 06/11/25 09:00 06/12/25 08:45 100 MLS/HR Metronidazole 100 ml @ 100 mls/hr Q8HR IV 06/11/25 14:00 06/12/25 05:32 100 MLS/HR Ketorolac Tromethamine 15 mg Q6HPRN PRN IV 06/11/25 16:00 06/16/25 15:59 06/12/25 08:46 15 MG Morphine Sulfate 2 mg Q4HPRN PRN IV 06/12/25 11:45 UNV General: Normal, Well developed Head/Eyes: Normal ENT: Normal Neck: Normal Lungs: Normal Abdominal: Normal, Soft, Normal inspection Extremities: Normal Skin: Normal Labs and Microbiology Laboratory Tests 06/12/25 09:51 06/12/25 06:40 Test 06/12/25 06:40 Range/Units Serum Glucose 78 74-106 mg/dL Ass/Plan Labs and/or images reviewed: Image(s) reviewed by me Problem List # Possible Partial SBO -CT scan shows Diffuse mesenteric edema/trace ascites.Diffusely dilated loops of small bowel without definite transition point noted. Findings concerning for small bowel obstruction. - Gastrografin shows Normal small bowel series. Delayed transit time - surgery was on board and recommended no operative treatment needed. - patient is on clear liquid diet and is tolerating. - IV NS 60 mL/hour - IV ceftriaxone 1 g daily -IV metronidazole 500 mg tid -IV Toradol 15 mg Q6 hour for pain #chronic microcytic anemia secondary to iron deficiency - hemoglobin is 9.7 # transaminitis -monitor labs # acute complicated UTI - urinalysis shows signs of UTI - pending bacterial urine culture - IV ceftriaxone 1 g daily # moderate to severe protein calorie malnutrition - history of gastric bypass surgery - albumin:2.5 PPI PPX: Protonix DVT PPX: SCD Goals of care discussed with patient for over 20 minutes: Full code Case discussed with Dr. Rush Assessment/Plan small bowel follow through reviewed small bowel obstruction has resolved patient is having bowel movements and passing flatus Plan: full liquid diet, advance as tolerated no surgical intervention , please recall if needed will sign off Discussed with Dr. Wade Prognosis: Good Plan discussed with Dr. Wade patient Visit Coding Surgery Date of Service if different f: Jun 12, 2025 Billing Provider: ALLI WADE MD Surgery Visit Codes: [id number] INP/OBS CARE(HIGH) LUZMARIA LINDA NP Jun 12, 2025 12:07
[2025-06-12] MEDS: MORPHINE SULFATE INJ 2 MG/ml SYRG IV PRN (12:25)
[2025-06-12] MEDS: POTASSIUM EFFERVESENT TAB 25 MEQ PO ONE (17:52)
[2025-06-12] MEDS: POTASSIUM CHL 20MEQ/100ML 100 ML IV SCH (17:53)
--- NOTE | 2025-06-12 18:10 | DVHPNRES ---
Progress Note Date Seen: Jun 12, 2025 Resident Creating Document: ANNETTE SEVERINO RESIDENT Medical Necessity Reason Pt with a Central, PICC or Fol: No Subjective Review of Systems The patient is a 54-year-old female with past medical history of anemia and depression who presented to [facility] ED with complaint of intractable abdominal pain. Patient reports symptoms progressively get worse with localized diffuse abdominal pain, nonradiating, described as sharp, rating 10/10 numeric scale, associated nausea, shortness of breaths, getting worse that prompted this visit. Abdomen/pelvis CT revealing hepatomegaly with hepatic steatosis, diffuse mesenteric edema/trace ascites, diffusely dilated loops of small bowel without definite transition point noted, findings concerning for small bowel obstruction; mild to moderate body wall edema. Patient was given morphine sulfate 4 mg IV x1, please see medication orders section in the computer. On my assessment, patient denied chest pain, no headache, no dizziness, no abdominal pain at this moment, no diarrhea, no nausea at this moment, no vomiting, no fever, no chills. Patient was admitted for further evaluation and medical management. Patient had a Martín gastric bypass 20 years ago and a hernia repair, she had partial small bowel obstruction since 4 years. Patient was seen at bedside. Patient appears in severe distress but alert x3, patient complains of severe diffuse abdominal pain, 8/10 intensity, but denies any nausea, vomiting, headaches, dizziness, constipation, diarrhea. She has had a 3 bowel movements and is passing gas. She is changed from clear liquid diet to full liquid diet. Patient had hypokalemia and was given potassium. Objective vital signs Vital Sign Date Time Temp Pulse Resp B/P (MAP) Pulse Ox O2 Delivery O2 Flow Rate FiO2 06/12/25 17:52 67 18 126/67 06/12/25 16:46 97.9 98 97.9 06/12/25 08:00 Nasal Cannula* 3 32 Total Intake and Output 06/11/25 06/11/25 06/12/25 15:00 23:00 07:00 Intake Total 150 ml 180 ml 1300 ml Balance 150 ml 180 ml 1300 ml medications Current Medications Medications Dose Ordered Sig/Tamar Route Start Time Stop Time Status Last Admin Dose Admin Pantoprazole Sodium 40 mg DAILY IV 06/11/25 10:00 06/12/25 08:46 40 MG Sodium Chloride 1,000 ml @ 60 mls/hr [id number] IV 06/10/25 16:15 06/10/25 17:30 60 MLS/HR Ondansetron HCl 4 mg Q4HP PRN IV 06/10/25 16:15 06/12/25 10:18 4 MG Ibuprofen 600 mg Q6HP PRN PO 06/10/25 16:15 Cancel Ceftriaxone Sodium 50 ml @ 100 mls/hr DAILY@09 IV 06/11/25 09:00 06/12/25 08:45 100 MLS/HR Metronidazole 100 ml @ 100 mls/hr Q8HR IV 06/11/25 14:00 06/12/25 14:25 100 MLS/HR Ketorolac Tromethamine 15 mg Q6HPRN PRN IV 06/11/25 16:00 06/16/25 15:59 06/12/25 15:38 15 MG Morphine Sulfate 2 mg Q4HPRN PRN IV 06/12/25 11:45 06/12/25 17:52 2 MG Potassium Chloride 100 ml @ 50 mls/hr Q2H IV 06/12/25 17:30 06/12/25 21:29 06/12/25 17:53 50 MLS/HR Examination General: Patient alert and oriented in person, place and time. Patient following commands. HEENT: Normocephalic, atraumatic, moist mucous membranes Respiratory/pulmonary: Clear lungs bilaterally, vesicular murmurs present in almost all lung carmona, no associated crackles or wheezes. Cardiovascular: Normal heart sounds S1 and S2 with no associated murmurs Abdomen: Abdomen nondistended, diffuse abdominal pain, no palpable masses. Extremities: There is no peripheral edema present at the lower extremities. Peripheral Pulses: 3+ Radial (R). 3+ Radial (L). 3+ Dorsalis pedis (R). 3+ Dorsalis pedis(L) Skin: No rashes or pruritus, there is no sacral edema present at this time. Neurological: Intact cranial nerves with no focal neurologic deficits laboratory and microbiology Laboratory Tests 06/12/25 09:51 06/12/25 06:40 Test 06/12/25 06:40 Range/Units Serum Glucose 78 74-106 mg/dL Microbiology Date/Time Source Procedure Growth Status 06/11/25 16:36 Nose MRSA Screen - Final Complete Problem List/Assessment/Plan Problem List/Assessment/Plan # Possible Partial SBO -CT scan shows Diffuse mesenteric edema/trace ascites.Diffusely dilated loops of small bowel without definite transition point noted. Findings concerning for small bowel obstruction. - Gastrografin shows Normal small bowel series. Delayed transit time - surgery was on board and recommended no operative treatment needed. - patient is changed from clear liquid diet to full liquid diet - IV NS 60 mL/hour - IV ceftriaxone 1 g daily -IV metronidazole 500 mg tid -IV Toradol 15 mg Q6 hour for pain - IV morphine 2 mg q.4 PRN given #chronic microcytic anemia secondary to iron deficiency - hemoglobin is 9.7 # transaminitis -monitor labs # acute complicated UTI - urinalysis shows signs of UTI - pending bacterial urine culture - IV ceftriaxone 1 g daily # moderate to severe protein calorie malnutrition - history of gastric bypass surgery - albumin:2.5 PPI PPX: Protonix DVT PPX: SCD Goals of care discussed with patient for over 20 minutes: Full code Case discussed with Dr. Eugene Plan discussed with: Patient My Orders My Orders Orders - ANNETTE SEVERINO Procedure Category Date Status Time Morphine Sulfate PHA 06/12/25 In Process Injection 11:45 Full Liq Diet DIET 06/12/25 Transmitted Lunch Complete Blood Count LAB 06/13/25 Verified 04:00 Basic Metabolic Panel LAB 06/13/25 Verified 04:00 Date of Service: Jun 12, 2025 Billing Provider: YAIMA EUGENE MD Common Visit Codes: [id number] INP/OBS CARE(HIGH) ANNETTE SEVERINO Jun 12, 2025 18:10 YAIMA EUGENE MD Jun 17, 2025 20:16
[2025-06-13 01:00] VITALS: BP 121/73; PULSE 71; RESP 18; TEMP 98.2; O2SAT 92
--- NOTE | 2025-06-13 09:53 | DVHDSRES ---
Discharge Summary Date of Admission Resident Creating Document: ANNETTE SEVERINO RESIDENT Jun 10, 2025 at 17:19 Date of Discharge: Jun 12, 2025 Admitting Diagnosis # Intractable Abdominal Pain likely due to Partial SBO Labs/Diagnostic Data: Laboratory Results Test 06/12/25 09:51 06/12/25 06:40 06/11/25 12:18 06/11/25 08:21 White Blood Count 2.5 10^3/uL (4.4-10.8) Red Blood Count 2.53 10^6/uL (4.0-5.20) Hemoglobin 8.2 g/dL (12.2-16.2) Hematocrit 24.9 % (36.0-46.0) Mean Corpuscular Volume 98.4 fL (80.0-100.0) Mean Corpuscular Hemoglobin 32.4 pg (28.0-32.0) Mean Corpuscular Hemoglobin Concent 32.9 g/dL (32.0-36.0) Red Cell Distribution Width 14.2 % (11.8-14.3) Platelet Count 134 10^3/uL (140-450) Mean Platelet Volume 9.5 fL (6.9-10.8) Neutrophils (%) (Auto) 68.3 % (37.0-80.0) Lymphocytes (%) (Auto) 20.7 % (10.0-50.0) Monocytes (%) (Auto) 10.1 % (0.0-12.0) Eosinophils (%) (Auto) 0.6 % (0.0-7.0) Basophils (%) (Auto) 0.3 % (0.0-2.0) Neutrophils # (Auto) 1.7 10 ^3/uL (1.6-8.6) Lymphocytes # (Auto) 0.5 10 ^3/uL (0.4-5.4) Monocytes # (Auto) 0.3 10 ^3/uL (0-1.3) Eosinophils # (Auto) 0 10 ^3/uL (0-0.8) Basophils # (Auto) 0 10 ^3/uL (0-0.2) Nucleated Red Blood Cells 0.1 % Sodium Level 145 mmol/L (136-145) Potassium Level 2.7 mmol/L (3.5-5.1) Chloride Level 109 mmol/L (98-107) Carbon Dioxide Level 30 mmol/L (20-31) Anion Gap 6 (5-15) Blood Urea Nitrogen 8 mg/dL (9-23) Creatinine 0.41 mg/dL (0.550-1.02) Glomerular Filtration Rate Calc 115 mL/min (>90) BUN/Creatinine Ratio 19.5 (10.0-20.0) Serum Glucose 78 mg/dL (74-106) Calcium Level 7.7 mg/dL (8.7-10.4) Magnesium Level 2.0 mg/dL (1.6-2.6) Total Bilirubin 0.5 mg/dL (0.2-1.0) Aspartate Amino Transferase (AST) 41 U/L (13-40) Alanine Aminotransferase (ALT) 42 U/L (7-40) Alkaline Phosphatase 142 U/L (46-116) Total Protein 4.3 g/dL (5.7-8.2) Albumin 2.3 g/dL (3.2-4.8) POC Glucose 83 mg/dl (70-106) Prothrombin Time 11.3 sec (9.3-11.8) Prothrombin Time INR 1.07 (0.9-1.15) Activated Partial Thromboplast Time 25.5 SEC (24.5-34.5) Test 06/10/25 18:33 06/10/25 14:45 Urine Color Yellow (Yellow) Urine Clarity Clear (Clear) Urine pH 5.0 (5.0-9.0) Urine Specific [place] 1.026 (1.001-1.035) Urine Protein Negative (Negative) Urine Ketones Negative (Negative) Urine Blood Negative /uL (Negative) Urine Nitrite 2+ (Negative) Urine Bilirubin Negative (Negative) Urine Urobilinogen Normal mg/dL (Negative) Urine Leukocyte Esterase 3+ /uL (Negative) Urine RBC 1 /hpf (0 - 4) Urine Microscopic WBC 41 /HPF (0-5) Urine Squamous Epithelial Cells Few /hpf (<5) Urine Bacteria Few /hpf (None Seen) Urine Mucus Few (None Seen) Urine Glucose Normal mg/dL (Normal) Hemoglobin A1c < 3.8 % A1C (<5.7) Lipase 19 U/L (12-53) Other Laboratory Tests 06/12/25 09:51 06/12/25 06:40 Brief Hx & Hospital Course: The patient is a 54-year-old female with past medical history of anemia and depression who presented to [facility] ED with complaint of intractable abdominal pain. Patient reports symptoms progressively get worse with localized diffuse abdominal pain, nonradiating, described as sharp, rating 10/10 numeric scale, associated nausea, shortness of breaths, getting worse that prompted this visit. Abdomen/pelvis CT revealing hepatomegaly with hepatic steatosis, diffuse mesenteric edema/trace ascites, diffusely dilated loops of small bowel without definite transition point noted, findings concerning for small bowel obstruction; mild to moderate body wall edema. Patient was given morphine sulfate 4 mg IV x1, please see medication orders section in the computer. On my assessment, patient denied chest pain, no headache, no dizziness, no abdominal pain at this moment, no diarrhea, no nausea at this moment, no vomiting, no fever, no chills. Patient was admitted for further evaluation and medical management. Patient had a gastric bypass 20 years ago and a hernia repair, she had partial small bowel obstruction since 4 years. Brief hospital course: Patient came to the ED with intractable abdominal pain possibly due to partial SBO, CT scan was done and shows Diffuse mesenteric edema/trace ascites.Diffusely dilated loops of small bowel without definite transition point noted. Findings concerning for small bowel obstruction. Small bowel series was done and shows Normal small bowel series. Delayed transit time. Consulted and recommended no operative treatment was needed at this time. Patient was changed from clear liquid diet to full liquid diet and was tolerating with passage of gas and bowel movements and reported no nausea, vomiting. IV ceftriaxone 1 g daily was given, IV metronidazole 500 mg t.i.d. was given, IV Toradol and IV morphine were given for pain. Patient also had chronic microcytic anemia secondary to iron deficiency. She is recommended to take iron supplementation. She had hypokalemia and was given potassium. Patient also had transaminitis and her labs were monitored regularly. Patient also had acute complicated UTI with urinalysis showing signs of UTI, urine culture were sent but results were pending. IV ceftriaxone was given for the UTI. She had moderate to severe protein calorie malnutrition likely due to her gastric bypass surgery, albumin was 2.5. For PPI prophylaxis Protonix was given and for DVT prophylaxis SCD was given. The patient stated that she wanted to leave the hospital AMA and was encouraged to stay for further treatment and management but she wished to leave. She stated she has to take care of her disabled children. Patient was advised of the risks and benefits of leaving AMA. She thoroughly understands that the risks and signed the AMA form. Patient encouraged to return to the ER if symptoms do not improve or worsen. Operations or Procedures ORDERING PHYSICIAN: ALLI KING MD PROCEDURE(s): SMBG - SMALL BOWEL SERIES-W GASTROGRA REASON: ABDOMINAL PAIN ORDER NUMBER(s): [id number], ACCESSION NUMBER(s): [id number] Procedure: XY SMALL BOWEL SERIES-W GASTROGRA Exam Date: 06/11/2025 12:31 PM Reason for study/Clinical History: ABDOMINAL PAIN Comparison Study: None Technique: Single contrast small bowel series performed. Findings: Initial us marketing director view of the abdomen and pelvis appears demonstrates no acute process. Contrast is identified within the colon by 3 h. This represents a normal small bowel transit time. Small bowel loops are normal in size. Normal mucosal pattern. No evidence of small bowel obstruction, stricture, or mucosal abnormality. The terminal ileum is well visualized and is unremarkable. IMPRESSION: Normal small bowel series. Delayed transit time. END IMPRESSION: ORDERING PHYSICIAN: BHARGAVI CONNELLY DNP PROCEDURE(s): CXR1 - CHEST XRAY 1 VIEW REASON: NGT PLACEMENT ORDER NUMBER(s): [id number], ACCESSION NUMBER(s): [id number] EXAM: XY CHEST XRAY 1 VIEW Indication: NGT PLACEMENT Technique: Single frontal view of the chest was obtained Comparison: XY CHEST PORTABLE on DOS: 05/29/25, XY CHEST PORTABLE on DOS: 05/09/25, XY CHEST PORTABLE on DOS: 10/22/24, XY CHEST PORTABLE on DOS: 04/04/24, CXRP on DOS: 06/29/22 FINDINGS: Lines and Tubes: Enteric tube tip projects over the expected region of stomach. Lungs: Right basilar opacity. Pleura: No effusion. No pneumothorax. Cardiomediastinal contours: Unremarkable Bones: No acute osseous abnormality. IMPRESSION: Enteric tube in appropriate position. ORDERING PHYSICIAN: STAR NEWMAN MD PROCEDURE(s): ABPL - CT AB PEL WO CON-NO ORAL OR IV REASON: pain ORDER NUMBER(s): [id number], ACCESSION NUMBER(s): [id number] Exam: CT CT AB PEL WO CON-NO ORAL OR IV History: pain Comparison Study: CT CT AB PEL WO CON-NO ORAL OR IV on DOS: 05/29/25, CT CT AB PEL WO CON-NO ORAL OR IV on DOS: 04/04/24 TECHNIQUE: Multidetector CT of the abdomen and pelvis without IV contrast. Axial, coronal and sagittal multiplanar reformats were obtained from the axial data set by the technologist. Radiation Dose Information: CT Dose: CTDI volume is 8.73 mGy. Dose-length product is 463.39 mGy*cm FINDINGS: Bibasilar atelectasis. Partially visualized heart is unremarkable. Moderate atrophy of the pancreas with trace ascites/mesenteric edema limiting evaluation for peripancreatic edema. Adrenal glands are unremarkable. Hepatosplenomegaly with hepatic steatosis. Status post cholecystectomy. Kidneys, and ureters are unremarkable. Mild wall thickening of the mildly distended urinary bladder. Uterus and adnexa are unremarkable. Postsurgical changes of gastric bypass. Stomach is unremarkable. Diffusely dilated loops of small bowel without definite transition point noted. Findings concerning for small bowel obstruction. Appendix is not definitely visualized. There is wall thickening of the ascending colon, transverse colon proximal descending colon, rectosigmoid and rectum. Moderate amount of fecal material within the redundant descending colon and sigmoid. Trace ascites/ mesenteric edema. No evidence of intraperitoneal free air. No evidence of aortic aneurysm. No significant lymphadenopathy. [id number] body wall edema. Hemangioma within the T8 and L2 vertebral bodies.. IMPRESSION: Hepatosplenomegaly with hepatic steatosis. Diffuse mesenteric edema/trace ascites. Diffusely dilated loops of small bowel without definite transition point noted. Findings concerning for small bowel obstruction. Mild wall thickening of the urinary bladder which may be due to inadequate distention. Correlation urinalysis is recommended to exclude cystitis. Mild to moderate body wall edema. Condition at Discharge: Fair Final Diagnosis/Problems List # Intractable Abdominal Pain likely due to Partial SBO # Intractable Nause and V[place]ing likely due to Partial SBO # chronic microcytic anemia secondary to iron deficiency # transaminitis # acute complicated UTI # moderate to severe protein calorie malnutrition Discharge Disposition: AMA Discharge Instruct/Medications Scheduled Tizanidine Hydrochloride (Tizanidine Hcl), 1 TAB PO BIDPRN, (Reported) Scheduled PRN Ondansetron HCl (Ondansetron Hydrochloride), 8 MG PO Q6HP PRN for NAUSEA OR VOMITING, (Reported) Oxycodone HCl (Oxycodone Hydrochloride), 1 TAB PO for PAIN SCALE 7 THRU 10, (Reported) Discharge Statement: "Patient was advised to return to the ER or call 911 if any headaches, dizziness, shortness of breath, chest pain, abdominal pain, bleeding, fevers, or worsening of medical condition. Patient was counseled about treatment plan, medications, possible side effects, patientverbalized understanding. All questions were answered to the best of my ability. This discharge took greater then 30 minutes in planning, reviewing documentation, counseling the patient, and discussing with other team members." ASSESSMENT ASSESSMENT Assessment ANNETTE SEVERINO RESIDENT Jun 13, 2025 09:53
== END 2025-06-13 00:23 | disposition left against medical advice (07) | DRG 247 ==
LOC: ER 13:30 → EDBD 13:30 → OVERFLOW 17:19 → TELE-WESTW 21:55 → WEST WING 06-11 18:25
PROVIDERS: ADMIT Student in an Organized Health Care Education/Training Program; ATTEND Emergency Medicine
DX: K56.600 Partial intestinal obstruction, unspecified as to cause (principal); J96.01 Acute respiratory failure with hypoxia; E43 Unspecified severe protein-calorie malnutrition; K76.0 Fatty (change of) liver, not elsewhere classified; D50.9 Iron deficiency anemia, unspecified; N39.0 Urinary tract infection, site not specified; Z53.29 Procedure and treatment not carried out because of patient's decision for other reasons; Z98.84 Bariatric surgery status; Z68.28 Body mass index [BMI] 28.0-28.9, adult; Z88.2 Allergy status to sulfonamides; Z88.6 Allergy status to analgesic agent; Z81.8 Family history of other mental and behavioral disorders; R74.01 Elevation of levels of liver transaminase levels
CPT/HCPCS: 36415; 71045; 74176; 74250; 80053; 81001; 82962; 83036; 83690; 83735; 85025; 85610; 85730; 87081; 87086; 96365; G0378; J1885; J2405; J2470; J3480; J3490; P9047